=== PATIENT | female | born 1990 | race Caucasian/White ===

== ENCOUNTER → 2019-10-07 13:12 | Outpatient (BNVA) | payer MEDICAID, SELFPAY | PROVIDERS: PCP Nurse Practitioner Family; Visit Provider Nurse Practitioner Women's Health | DX: O09.91 Supervision of high risk pregnancy, unspecified, first trimester (principal); O99.211 Obesity complicating pregnancy, first trimester; O10.911 Unspecified pre-existing hypertension complicating pregnancy, first trimester; Z3A.08 8 weeks gestation of pregnancy | CPT/HCPCS: 84315; 87077; 87086; 87186 ==

== ENCOUNTER → 2019-10-17 12:35 | Outpatient (BNVA) | payer MEDICAID, SELFPAY | PROVIDERS: PCP Nurse Practitioner Family; Visit Provider Obstetrics & Gynecology | DX: O09.91 Supervision of high risk pregnancy, unspecified, first trimester (principal) | CPT/HCPCS: 80307; 84315; 85027; 86592; 86762; 86803; 86850; 86900; 87086; 87340; 87389 ==

== ENCOUNTER → 2019-10-28 09:00 | Outpatient (BNVA) | payer SELFPAY | PROVIDERS: PCP Nurse Practitioner Family; Referring Provider Obstetrics & Gynecology; Visit Provider Obstetrics & Gynecology | DX: R30.0 Dysuria (principal) | CPT/HCPCS: 81003; 87077; 87086; 87186 ==

== ENCOUNTER → 2019-11-04 12:10 | Outpatient (BNVA) | payer MEDICAID, SELFPAY | PROVIDERS: PCP Nurse Practitioner Family; Visit Provider Obstetrics & Gynecology | DX: O09.891 Supervision of other high risk pregnancies, first trimester (principal) | CPT/HCPCS: 82950; 84315; 87491; 87591 ==

== ENCOUNTER → 2019-11-18 08:30 | Outpatient (BNVA) | payer MEDICAID, SELFPAY | PROVIDERS: PCP Nurse Practitioner Family; Visit Provider Obstetrics & Gynecology | DX: R73.09 Other abnormal glucose (principal) | CPT/HCPCS: 82951; 82952 ==

== ENCOUNTER → 2019-11-25 11:00 | Outpatient (BNVA) | payer SELFPAY | PROVIDERS: PCP Nurse Practitioner Family; Visit Provider Obstetrics & Gynecology | DX: O99.89 Other specified diseases and conditions complicating pregnancy, childbirth and the puerperium (principal); R82.71 Bacteriuria; R00.0 Tachycardia, unspecified | CPT/HCPCS: 84315; 84439; 84443; 87077; 87086; 87186 ==

== ENCOUNTER → 2019-11-29 11:17 | Outpatient (BNVA) | payer SELFPAY | PROVIDERS: PCP Nurse Practitioner Family; Visit Provider Obstetrics & Gynecology | DX: Z34.90 Encounter for supervision of normal pregnancy, unspecified, unspecified trimester (principal); N89.8 Other specified noninflammatory disorders of vagina | CPT/HCPCS: 83986; 84315 ==

== ENCOUNTER → 2019-12-15 08:45 | Outpatient (BNVA) | payer SELFPAY | PROVIDERS: PCP Nurse Practitioner Family; Visit Provider Obstetrics & Gynecology | DX: O99.89 Other specified diseases and conditions complicating pregnancy, childbirth and the puerperium (principal); R82.71 Bacteriuria | CPT/HCPCS: 80053 ==

== ENCOUNTER → 2019-12-26 09:30 | Outpatient (BNVA) | payer SELFPAY | PROVIDERS: PCP Nurse Practitioner Family; Referring Provider Obstetrics & Gynecology; Visit Provider Obstetrics & Gynecology | DX: Z36.89 Encounter for other specified antenatal screening (principal); Z3A.20 20 weeks gestation of pregnancy | CPT/HCPCS: 76805 ==

== ENCOUNTER → 2019-12-29 09:02 | Outpatient (BNVA) | payer SELFPAY | PROVIDERS: PCP Nurse Practitioner Family; Visit Provider Obstetrics & Gynecology Female Pelvic Medicine and Reconstructive Surgery | DX: Z34.90 Encounter for supervision of normal pregnancy, unspecified, unspecified trimester (principal); O09.92 Supervision of high risk pregnancy, unspecified, second trimester; O10.919 Unspecified pre-existing hypertension complicating pregnancy, unspecified trimester; O99.89 Other specified diseases and conditions complicating pregnancy, childbirth and the puerperium; O99.210 Obesity complicating pregnancy, unspecified trimester; R82.71 Bacteriuria; R00.0 Tachycardia, unspecified | CPT/HCPCS: 81000 ==

== ENCOUNTER → 2020-01-23 10:51 | Outpatient (BNVA) | payer MEDICAID, SELFPAY | PROVIDERS: PCP Nurse Practitioner Family; Visit Provider Obstetrics & Gynecology | DX: O09.92 Supervision of high risk pregnancy, unspecified, second trimester (principal); O99.212 Obesity complicating pregnancy, second trimester | CPT/HCPCS: 76816; 81000 ==

== ENCOUNTER → 2020-02-15 16:01 | Outpatient (BNVA) | payer MEDICAID, SELFPAY | PROVIDERS: PCP Nurse Practitioner Family; Visit Provider Obstetrics & Gynecology | DX: N39.0 Urinary tract infection, site not specified (principal) | CPT/HCPCS: 80053; 81000; 87077; 87086; 87186 ==

== ENCOUNTER → 2020-02-21 08:23 | Outpatient (BNVA) | payer MEDICAID, SELFPAY | PROVIDERS: PCP Nurse Practitioner Family; Visit Provider Obstetrics & Gynecology | DX: O09.892 Supervision of other high risk pregnancies, second trimester (principal) | CPT/HCPCS: 81000; 82951; 82952 ==

== ENCOUNTER 2020-02-23 09:19 | Outpatient (CLI) | payer MEDICAID, SELFPAY ==
--- NOTE | 2020-02-23 09:46 | US_ITS ---
WS: [id number] [place] [id number] REASON FOR EXAM: chronic htn in FINDINGS: heart rate 133 beats for minute. Head circumference 26.61 cm 29 weeks gestation due date May 10, 2020. [place] femoral length 5.44 cm 28 weeks 5 days gestation due date 05/12/2020 weight estimated 1258 g (2 lbs. 12 oz.) suggest a 10/11/2019 due date. Femoral length 5.41 cm 20 weeks 4 days gestation due date 05/13/2020 Abdominal circumference 24.73 cm 29 weeks gestation expected date of confinement May 10, 2020 Normal amniotic fluid indices. Placenta is posterior. The facial features of the fetus were normal. The cervical length is 4.8 cm All 4 chambers in the heart were poorly outlined on this study. The cardiac insertion is also poorly seen on this study. / [place] [id number] Impression: 4 views of the heart and the cardiac insertions were poorly evaluated on this s tudy. The fetus appears to be at 28 weeks 4 days gestation with a due date of May 13, 2020 weight 2 lbs. 13 oz.
== END 2020-02-23 09:20 | disposition home or self-care (01) ==
LOC: RAD 09:21
PROVIDERS: Visit Provider Obstetrics & Gynecology
DX: O10.012 Pre-existing essential hypertension complicating pregnancy, second trimester (principal); R00.0 Tachycardia, unspecified
CPT/HCPCS: 76816

== ENCOUNTER → 2020-03-08 13:19 | Outpatient (BNVA) | payer MEDICAID, SELFPAY | PROVIDERS: Visit Provider Obstetrics & Gynecology | DX: O09.893 Supervision of other high risk pregnancies, third trimester (principal); O10.013 Pre-existing essential hypertension complicating pregnancy, third trimester; O99.213 Obesity complicating pregnancy, third trimester; R82.71 Bacteriuria; Z3A.30 30 weeks gestation of pregnancy | CPT/HCPCS: 81000 ==

== ENCOUNTER 2020-03-13 20:37 | Outpatient (CLI) | payer MEDICAID, SELFPAY ==
[2020-03-13 20:45] VITALS: BMI 37.2
[2020-03-13 20:51] VITALS: BP 145/95; PULSE 110; RESP 16; TEMP 37.1
[2020-03-13 21:02] VITALS: BP 147/84; PULSE 107
[2020-03-13 21:22] VITALS: BP 148/67; PULSE 93
[2020-03-13 21:22] LABS: Add Urine Microscopic? YES; Bilirubin Urine Neg (NEGATIVE); Blood Urine Neg (Negative); Glucose Urine UA Norm (Normal); Ketones Urine Negative (Negative); Leukocyte Esterase Urine Negative (Negative); Nitrate Urine Negative (Negative); Protein Urine Neg (Negative); Urine Appearance Hazy (CLEAR); Urine Color Yellow (Yellow); Urobilinogen Urine Norm (Negative); pH Urine 7 (5-7)
[2020-03-13 21:28] LABS: Add Urine Culture? No; Bacteria Urine 1+; Renal Epithelial Cells Urine N /hpf; Squamous Epithelial Cell Urine 0-4 (0-5)
[2020-03-13 21:42] VITALS: BP 161/94; PULSE 91
[2020-03-13 21:45] VITALS: TEMP 36.9
[2020-03-13 21:56] VITALS: BP 161/94; PULSE 91; RESP 16; TEMP 37.1
== END 2020-03-13 22:00 | disposition home or self-care (01) ==
LOC: OPOB 20:40 → OBGYN 21:56
PROVIDERS: Visit Provider Obstetrics & Gynecology
DX: O26.899 Other specified pregnancy related conditions, unspecified trimester (principal); Z3A.00 Weeks of gestation of pregnancy not specified; R10.9 Unspecified abdominal pain
CPT/HCPCS: 59025; 81001; 99211

== ENCOUNTER → 2020-03-20 09:05 | Outpatient (BNVA) | payer MEDICAID, SELFPAY | PROVIDERS: Visit Provider Obstetrics & Gynecology | DX: Z34.90 Encounter for supervision of normal pregnancy, unspecified, unspecified trimester (principal) | CPT/HCPCS: 81000 ==

== ENCOUNTER → 2020-03-28 00:01 | Outpatient (BNVA) | payer MEDICAID, SELFPAY | PROVIDERS: PCP Nurse Practitioner Family; Visit Provider Obstetrics & Gynecology | DX: O10.911 Unspecified pre-existing hypertension complicating pregnancy, first trimester (principal) | CPT/HCPCS: 80053; 81000; 84156 ==

== ENCOUNTER 2020-04-03 17:00 | Outpatient (CLI) | payer MEDICAID, SELFPAY ==
[2020-04-03 17:43] VITALS: BMI 37.0
[2020-04-03 17:47] VITALS: BP 131/69; PULSE 88
--- NOTE | 2020-04-03 18:29 | PC.NURSE ---
Nicanor Welch RN was primary nurse for this patient. she stated that medications were to be continued per physician request.
== END 2020-04-03 17:55 | disposition home or self-care (01) ==
LOC: OPOB 17:02 → OBGYN 17:06
PROVIDERS: PCP Nurse Practitioner Family; Visit Provider Obstetrics & Gynecology
DX: O26.899 Other specified pregnancy related conditions, unspecified trimester (principal); Z3A.00 Weeks of gestation of pregnancy not specified; N89.8 Other specified noninflammatory disorders of vagina
CPT/HCPCS: 59025; 83986; 99211

== ENCOUNTER → 2020-04-05 08:07 | Outpatient (BNVA) | payer MEDICAID, SELFPAY | PROVIDERS: PCP Nurse Practitioner Family; Visit Provider Obstetrics & Gynecology | DX: O10.013 Pre-existing essential hypertension complicating pregnancy, third trimester (principal); O99.213 Obesity complicating pregnancy, third trimester; Z3A.34 34 weeks gestation of pregnancy | CPT/HCPCS: 81000 ==

== ENCOUNTER → 2020-04-12 08:31 | Outpatient (BNVA) | payer MEDICAID, SELFPAY | PROVIDERS: PCP Nurse Practitioner Family; Visit Provider Obstetrics & Gynecology | DX: O10.013 Pre-existing essential hypertension complicating pregnancy, third trimester (principal); O09.893 Supervision of other high risk pregnancies, third trimester; R00.0 Tachycardia, unspecified | CPT/HCPCS: 81000; 87081 ==

== ENCOUNTER → 2020-04-17 13:13 | Outpatient (BNVA) | payer MEDICAID, SELFPAY | PROVIDERS: PCP Nurse Practitioner Family; Visit Provider Obstetrics & Gynecology | DX: O10.013 Pre-existing essential hypertension complicating pregnancy, third trimester (principal); Z3A.36 36 weeks gestation of pregnancy | CPT/HCPCS: 82570; 84156 ==

== ENCOUNTER → 2020-04-19 13:59 | Outpatient (BNVA) | payer MEDICAID, SELFPAY | PROVIDERS: PCP Nurse Practitioner Family; Visit Provider Obstetrics & Gynecology | DX: O10.013 Pre-existing essential hypertension complicating pregnancy, third trimester (principal); Z3A.00 Weeks of gestation of pregnancy not specified | CPT/HCPCS: 81000 ==

== ENCOUNTER → 2020-04-26 10:09 | Outpatient (BNVA) | payer MEDICAID, SELFPAY | PROVIDERS: PCP Nurse Practitioner Family; Visit Provider Obstetrics & Gynecology | DX: O10.013 Pre-existing essential hypertension complicating pregnancy, third trimester (principal) | CPT/HCPCS: 81000 ==

== ENCOUNTER 2020-04-27 18:01 | Inpatient (IN) | payer MEDICAID, SELFPAY ==
[2020-04-27] VITALS (24 sets, daily range): BP systolic 0–163; BP diastolic 0–87; PULSE 69–114; RESP 16–18; TEMP 36.8–37.3; BMI 36.6
[2020-04-27 19:12] LABS: Add Urine Microscopic? NO
[2020-04-27 19:15] LABS: Basophils % 0.1 %; Eosinophils % 0.4 %; Hematocrit 32.7 % (37.0-47.0); Hemoglobin 10.6 g/dL (11.5-15.3); Lymphocytes # 1.6 10^3/uL (0.8-4.8); Mean Corpuscular HGB Conc 32.4 g/dL (30.0-36.0); Mean Corpuscular Hemoglobin 29.5 pg (28.0-34.0); Mean Corpuscular Volume 91.1 fL (81-99); Mean Platelet Volume 11.4 fL (7.4-10.4); Monocytes # 0.3 10^3/uL (0.2-0.9); Monocytes % 4.1 %; Neutrophils # 6.17 10^3/uL (1.8-7.7); Neutrophils % 75.2 %; Nucleated Red Blood Cells % 0 %; Platelet Count 189 10^3/cmm (130-400); Red Blood Count 3.59 10^6/uL (4.1-5.3); Red Cell Distribution Width 14.7 % (12.1-15.1); White Blood Count 8.2 10^3/uL (4.0-10.0)
[2020-04-27 19:18] LABS: Bilirubin Urine Neg (NEGATIVE); Blood Urine Neg (Negative); Glucose Urine UA Norm (Normal); Ketones Urine Negative (Negative); Leukocyte Esterase Urine Negative (Negative); Nitrate Urine Negative (Negative); Protein Urine Neg (Negative); Specific Gravity, Urine 1.015 (1.005-1.030); Urine Appearance Clear (CLEAR); Urine Color Yellow (Yellow); Urobilinogen Urine Neg (Negative); pH Urine 7 (5-7)
[2020-04-27 19:31] LABS: Alanine Aminotransferase 9 U/L (0-33); Albumin Level 3.5 g/dL (3.5-5.2); Alkaline Phosphatase 117 IU/L (35-105); Anion Gap 15.6 (5-19); Aspartate Amino Transferase 15 U/L (0-32); Blood Urea Nitrogen 5 mg/dL (6-20); Calcium 9.2 mg/dL (8.5-10.5); Carbon Dioxide 20 mmol/L (22-29); Chloride 104 mmol/L (98-107); Globulin 2.7 g/dL (1.3-4.6); Glucose 126 mg/dL (65-115); Osmolality Calculated 279 mOsm/kg (285-295); Potassium 3.6 mmol/L (3.5-5.1); Sodium 136 mmol/L (136-145); Total Bilirubin 0.2 mg/dL (0.15-1.2); Total Protein 6.2 g/dL (6.6-8.7); Uric Acid 5.3 mg/dL (2.4-5.7)
[2020-04-27 19:38] LABS: Urine Creatinine 52 mg/dL (28-217); Urine Protein Random 5 mg/dL
[2020-04-27] MEDS: miSOPROStol 100 mcg tablet 25 MCG VAGINAL (21:29)
[2020-04-28] VITALS (176 sets, daily range): BP systolic 0–192; BP diastolic 0–107; PULSE 62–101; RESP 16–18; TEMP 36.7–37.1; O2SAT 31–100
[2020-04-28] MEDS: miSOPROStol 100 mcg tablet 25 MCG VAGINAL (01:38)
[2020-04-28] MEDS: labetalol 5 mg/mL SDV 20mL IVP ×2 (09:26→19:12)
[2020-04-28] MEDS: dextrose 5%-lactated ringers 1,000 ML 125 ML IV (09:29)
[2020-04-28] MEDS: oxytocin 30 UNIT/500 ML BAG IV (09:30)
--- NOTE | 2020-04-28 09:54 | PM.OBGYHP ---
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 She is 38-0/7 weeks gestation today. Patient presented to labor and delivery in the evening of 04/27/2020 for Cytotec cervical ripening and induction of labor due to prepregnancy hypertension. She received 2 doses of Cytotec 25 mcg vaginally in the evening and during the night. She has been started on Pitocin this morning. She has been continued on her home dose of metoprolol. Despite this, blood pressure was high enough this morning that she received IV labetalol as well. On admission she was evaluated for possible preeclampsia with a negative evaluation with protein creatinine ratio of 0.10. She denies complaints this morning. She reports that she was able to get a few hours sleep last night. She reports feeling crampiness through the night and this morning. She denies headaches or visual changes. She denies upper abdominal pain. She denies vaginal bleeding. She denies leaking of fluid. She reports baby has been moving well. care has been mainly provided by Dr. Vernon Villela at [facility]. Her care has been complicated by pre-existing essential hypertension which has been diagnosed at the age of 18. She has been intermittently treated with metoprolol through the years. She was not on medications initially in but was started on metoprolol at 16 weeks due to elevated blood pressures. She was also started on aspirin therapy. Her history was also significant for episodes of sinus tachycardia. Resting heart rate in the beginning of was in the 120s to 130s. She had a negative evaluation for hyperthyroidism. The metoprolol has controlled her heart rate adequately. She also had several episodes of acute cystitis and asymptomatic bacteriuria during the and has been taking daily prophylactic cephalexin because of this. LABS 10/07/2019 Urine culture: >100,000 CFU E. coli. 10/17/2019 Blood type: A positive. Antibody screen: Negative. Intake CBC: WBC 7.5, Hgb 13.2, Hct 39.5, MCV 88.2, Plt 271. Rubella: Immune. Hepatitis B surface antigen: Negative. Hepatitis C antibody: Negative. RPR: Nonreactive. HIV: Negative. Cystic fibrosis screen: Declined. Panorama: Declined. Urine drug screen: Negative. Urine culture: <5000 CFU, mixed organisms. 10/28/2019 Urine culture: 90-100,000 CFU, E. coli. 11/04/2019 Gonorrhea: NEGATIVE Chlamydia: NEGATIVE Pap smear: (2018) Normal per patient. Early GCT: 146 (high) 11/18/2019 3-hour GTT: 92/182/150/43 (normal) 11/25/2019 Urine culture: 90-100,000 CFU E. coli 12/15/2019 Urine culture: 30-40,000 CFU, mixed organisms. 12/29/2019 Cystic fibrosis: Screen negative. Panorama: Low risk, Female, fraction 6.5%. 02/15/2020 Urine culture: 70-80,000 E. Coli 02/21/2020 28 week CBC: WBC 7.5, Hgb 13.2, Hct 39.5, MCV 88.2, Plt 271. 3 hour GTT: 76/152/107/49. 03/28/2020 24 hour urine for TP: 150 mg (TV 1900 mL) Urine culture: Less than 5000 CFU, mixed organisms. GBS: negative OB ULTRASOUND LMP 08/06/2019 ---> EDC 05/12/2020 Please note The 09/22/2019 and 09/28/2019 ultrasounds used incorrect LMP of 08/04/2019. 1. 09/22/2019 ---> 6-4/7 WG ---> EDC 05/13/2020. Performed at [facility]. CRL 0.70 cm. FHR 126 bpm. 2. 09/28/2019 ---> 7-5/7 WG ---> EDC 05/11/2020. Performed at [facility]. CRL 1.42 cm. FHR 157 bpm. 3. 12/26/2019 ---> 20-0/7 WG ---> EDC 05/14/2020. EFW 12 oz. (340 g) 42%. Performed at [facility]. Consistent with dates. Normal anatomic survey EXCEPT for poor visualization of heart views and umbilical cord insertion. Female. Breech. FHR 140 bpm. Posterior placenta without previa. Grade 1. Visually normal amniotic fluid volume. THERAPEUTIC ASSISTANT 3.9 cm. Cervix 3.1 cm. 4. 01/23/2020 ---> 24-5/7 WG ---> EDC 05/09/2020. EFW 1 lb 10 oz (730 g) 62%. Performed at [facility]. Consistent with dates. Heart views and cord insertion reported as normal. Completed anatomy screen. Female. Cephalic. FHR 148 bpm. Posterior, fundal placenta without previa. MADHU 18.4 cm. THERAPEUTIC ASSISTANT 5.8 cm. 5. 02/23/2020 --->28-5/7 WG --> EDC: 05/13/2020. EFW 2 lb 13 oz (1258g) 38%. Performed at [facility]. Consistent with dates. Heart view was reported as poor. Cord insertion reported as poor. FHR 133 BPM. Posterior placenta with normal amniotic fluid indices (no value provided). 6. 03/20/2020 ---> 33-0/7 WG ---> EDC 05/08/2020. EFW 4 lbs 9 oz (2064 g) 53%. Performed at [facility]. Consistent with dates. Cephalic. FHR 132 bpm. Posterior, fundal placenta without previa. Placental grade 1. MADHU 14.7 cm. THERAPEUTIC ASSISTANT 4.2 cm. 7. 04/12/2020 ---> 36-2/7 WG ---> EDC 05/08/2020. EFW 6 lbs 0 oz (2728 g) 47%. Performed at [facility]. Consistent with dates. Cephalic. Female. FHR 132 bpm. Fundal, posterior placenta without previa. Grade 2. MADHU 13.3 cm. THERAPEUTIC ASSISTANT 4.7 cm. Review of Systems Const: Denies: fever(s) or chills Eyes: Denies: change in vision ENMT: Denies: throat pain or nasal congestion Card: Denies: chest pain, palpitations, swelling of feet/ankles or lightheadedness Resp: Denies: dyspnea, productive cough, non-productive cough or wheezing GI: Denies: abdominal pain, nausea, vomiting, diarrhea or constipation : Reports: urinary frequency; Denies: difficulty voiding, dysuria, urinary urgency, genital pruritis, vaginal bleeding or vaginal discharge Neuro: Denies: headache(s), dizziness or seizure-like activity Psych: Denies: anxiety or depression Endo: Denies: cold intolerance Alfred/Lymph: Denies: easy bruising or easy bleeding Medications/Allergies Home Medications Medication Instructions Recorded Confirmed Last Taken Type folic acid 1 mg tablet 1 mg PO QDAY 10/07/19 04/26/20 04/03/20 07:00 History prenat.vits,joan,cby-lkjc-eymzm 1 tab PO QDAY 10/07/19 04/26/20 04/03/20 07:00 History pyridoxine (vitamin B6) 50 mg 25 mg PO QDAY 10/07/19 04/26/20 03/12/20 18:00 History tablet aspirin 81 mg chewable tablet 81 mg PO DAILY 03/28/20 04/26/20 04/03/20 07:00 History cephalexin [Keflex] 250 mg PO DAILY 04/03/20 04/26/20 04/03/20 07:00 History metoprolol succinate 25 mg 25 mg PO BID tab 04/27/20 04/27/20 04/27/20 19:00 History tablet,extended release 24 hr Allergies Allergy/AdvReac Type Severity Reaction Status Date / Time No Known Allergies Allergy Verified 04/26/20 10:40 PFS [employer]ER PFSH: Medical History Hypertension dx at 18 y/o--managed with metoprolol 50mg;off meds since mid 2017; not on anything since Surgical History History of tonsillectomy (~2006) Family History Grandmother Cancer Maternal great grandmother---cervical or ovarian Mother Hypertension Daughter No problems noted. Father Hypertension Social History Smoking and tobacco status: never smoked Alcohol intake: former Former alcohol use details: Socially Other details last substance use: Denies any drug use. Other Female Reproductive History: Hx Age of Menarche: 13 Duration of menses: other (4 days) Cycle Length: 28-30 da History History History 2 Term 0 Miscarriages/Ectopic 1 0 Living Children 0 Other History: 1 ---> Miscarriage Care KATLYN Calculator Estimated Delivery Date Method Current WG Current Estimate 05/12/20 LMP (Certain) 38w 0d Other Estimates 05/13/20 Ultrasound #1 37w 6d 05/11/20 Ultrasound #2 38w 1d Expected Delivery Route/Plan Vaginal. Specific Issues/Plans Chronic hypertension - on Metoprolol Obesity Asymptomatic bacteriuria/Cystitis Maternal tachycardia - on Metoprolol Vitals/I&O/Wt Last Vital Signs Temp 98.7 F 04/28/20 07:20 Pulse 93 04/28/20 09:51 Resp 18 04/28/20 07:20 BP 137/83 04/28/20 09:51 Weight last 48 hrs Weight 248 lb Physical Exam Const: COMMON NORMALS: no acute distress, average body habitus, alert and well nourished GENERAL APPEARANCE: well developed ORIENTATION/CONSCIOUSNESS: Yes oriented to person, Yes oriented to place and Yes oriented to time Neck/C-Spine: COMMON NORMALS: Thyroid normal GENERAL: Yes trachea midline THYROID: Thyroid normal Resp: COMMON NORMALS: normal respiratory effort and clear to auscultation bilaterally AUSCULTATION: clear to auscultation bilaterally Cardio: COMMON NORMALS: regular rate, regular rhythm, No gallops present (Cardio) and No rub (Cardio) RATE: regular rate RHYTHM: regular rhythm HEART SOUNDS: Murmur heart sound present (Grade 1-2 systolic murmur noted.) PERIPHERAL PULSES: posterior tibial pulses present GI: COMMON NORMALS: Soft to palpation, non-tender, No hepatosplenomegaly present and no masses (Except for nontender gravid uterus) INSPECTION: Yes gravid abdomen AUSCULTATION: Yes normoactive bowel sounds PALPATION: Yes Soft to palpation, Yes No hepatosplenomegaly present and No Hernia present : EXTERNAL FEMALE EXAM: No Hernia present Extremity: COMMON NORMALS: no calf tenderness NARRATIVE EXTREMITY EXAM: Trace lower extremity edema bilaterally. Neuro: SENSORIUM/ORIENTATION: Yes alert, Yes oriented to person, Yes oriented to place and Yes oriented to time Psych: COMMON NORMALS: normal affect MOOD & AFFECT: Yes euthymic mood Data : 04/27/20 18:55 04/27/20 18:55 Other Labs: 04/27/2020: 18:55 AST 15, ALT 9, alk phos 117, total protein 6.2, albumin 3.5 Uric acid: 5.3 Urine protein/creatinine ratio: 0.10 Other data: MONITORING: Baseline heart rate in the 130s with moderate variability and accelerations present. Occasional variable deceleration present. Infrequent contractions present at this time. A&P Assessment and plan (1) Supervision of other high risk pregnancies, third trimester: Status: Acute (2) Pre-existing essential hypertension complicating , third trimester: Status: Acute (3) Tachycardia: Status: Acute (4) Asymptomatic bacteriuria during : Status: Acute (5) Obesity affecting : Status: Acute Qualifiers: Trimester: third trimester Qualified Code(s): O99.213 - Obesity complicating , third trimester Additional A&P Information 1. SUPERVISION OF OTHER HIGH RISK IN THIRD TRIMESTER 2, Para 0-0-1-0 with an LMP of 08/06/2019 and an EDC of 05/12/2020 based on LMP and consistent with 6-week ultrasound. (Today's visit 04/28/2020) at 38-0/7 weeks gestation. Patient is being induced for pre-existing hypertension complicating . 2. PRE-EXISTING HYPERTENSION COMPLICATING Patient had pre- hypertension diagnosed at age 18, controlled with metoprolol. Reports off of medication since mid 2018 after losing weight. 11/25/2019: (16 weeks) Started aspirin 81 mg daily. 11/25/2019: Started metoprolol ER 25 mg daily due to tachycardia and hypertension. 04/19/2020: Increase metoprolol ER 25 mg to twice a day. Ultrasounds LMP 08/06/2019 ---> EDC 05/12/2020 09/22/2019 --> 6-4/7 WG --> EDC 05/13/2020. 12/26/2019 --> 20-0/7 WG --> EDC 05/14/2020. EFW 12 oz. (340 g) 42%. 01/23/2020 --> 24-5/7 WG --> EDC 05/09/2020. EFW 1 lb 10 oz (730 g) 62%. MADHU 18.4 cm. 02/23/2020 --> 28-5/7 WG --> EDC: 05/13/2020. EFW 2 lb 13 oz (1258g) 38%. 03/20/2020 --> 33-0/7 WG --> EDC 05/08/2020. EFW 4 lbs 9 oz (2064 g) 53%. MADHU 14.7 cm. 04/12/2020 --> 36-2/7 WG --> EDC 05/08/2020. EFW 6 lbs 0 oz (2728 g) 47%. MADHU 13.3 cm - testing (NST and BPP's) starting at 32 weeks. -Plan growth ultrasounds at 28, 32, and 36 weeks 24-Hour Urine Total Protein 03/28/2020: 150 mg (TV 1900 mL) Urine Protein/Creatinine Ratio 04/17/2020: 0.11 04/27/2020: 0.10 (Today's visit 04/28/2020) Patient has been on metoprolol during most of the for blood pressure management. The dose was increased from once a day to twice a day of metoprolol ER 25 mg approximately 1-1/2 weeks ago due to slowly worsening blood pressures. Because of the pre-existing hypertension controlled on medications, recommendations are to deliver between 37-0/7 weeks and 39-0/7 weeks. Since we have had to increase medications recently, I am recommending that we go ahead and proceed with induction of labor. I discussed that with the patient and she was in agreement. She presented last night for cervical ripening and has been started on Pitocin this morning. Initial evaluation for preeclampsia and help syndrome was performed on admission which was negative. She has been continued on her home dose of metoprolol ER 25 mg twice a day. She will be supplemented with IV labetalol and/or hydralazine if needed during the labor course. Questions were answered. Patient is in agreement with this plan. 3. MATERNAL TACHYCARDIA 11/25/2019: Reports having a history of tachycardia and had been noticing heart rate running in 120s to 130s at home. Was noted to be elevated in the 130s in the office even after resting. -11/25/2019: TSH: 0.65, Free T4: 1.06. -11/25/2019: Started metoprolol ER 25 mg daily (Today's visit 04/28/2020) Heart rate has been well controlled on metoprolol. 4. CYSTITIS AND ASYMPTOMATIC BACTERIURIA DURING 10/07/2018: Urine culture: >100,000 CFU E. coli. Treated with cephalexin. 10/17/2019: Urine culture: <5000 CFU, mixed organisms. 10/28/2019: Urine culture: 90-100,000 CFU E. coli. Treated with cephalexin x 14 days. 11/25/2019: Urine culture: 90-100,000 CFU E. coli (symptomatic). Treated with Bactrim x 14 days. 12/15/2019: Urine culture: 30-40,000 CFU, mixed organisms. 02/15/2020: Urine culture: 70?15702 CFU E. coli. Tx with Keflex x 10 days then 250mg DAILY 03/28/2020: Urine culture: Less than 5000 CFU, mixed organisms. (Today's visit 04/28/2020) Patient has had multiple episodes of cystitis and asymptomatic bacteriuria which is been treated on several occasions. She was started on daily suppression with cephalexin following the last asymptomatic bacteriuria. She has had no further infections or episodes of asymptomatic bacteriuria since that time. 5. OBESITY COMPLICATING 10/07/2019: Beginning weight: 246 lbs. BMI 37.4 10/17/2019: Recommended limiting weight gain to 15 pounds for the . 11/04/2019: Early GCT: 146 (high) 11/18/2019: 3-hour GTT: 92/182/150/43 (normal) 02/21/2020: 1 pound weight gain so far for the . 04/26/2020: (37 wks) Weight 256 lb. (Today's visit 04/28/2020) Patient has done very well with her weight gain for the . She has only gained 10 pounds for the entire . Attestations Medical Necessity Statement*: Patient being induced for chronic hypertension at 38 weeks gestation. 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
[2020-04-28] MEDS: lactated ringers 1,000 ML 999 ML IV ×2 (14:23→15:24)
--- NOTE | 2020-04-28 15:43 | ANES.PREANE2 ---
Pre-Anesthetic Assessment Pre-Anesthetic Assessment: Height/Weight: Height 1.75 m Weight 112.491 kg Temp Pulse Resp BP Pulse Ox 98.4 F 90 16 176/84 98 04/28/20 11:45 04/28/20 15:37 04/28/20 11:45 04/28/20 15:37 04/28/20 15:38 Preop Diagnosis: term /labor pain Was Beta Ronnie taken within 24 hours: Yes Last Intake: 08:00 Exam: Pre-Anes Outpt Exam: alert, oriented x 3, clear to auscultation bilaterally and regular rate & rhythm Airway: Submandibular: WNL Cervical ROM: WNL MP: 1 Dentition: Full History/ROS: No significant history except as noted and No significant complaints Pulmonary: Pulmonary: None reported CV/HEM: CV/HEM: HTN (HTN on med since 18 yo) : : None reported Hepatic: Hepatic: None reported GI: GI: None reported Metabolic: Metabolic: None reported Musc/skel: Musc/skel: None reported Neuropsych: Neuropsych: None reported Anesthetic Plan: ASA status: 2 Anesthesia: Anesthesia Evaluation and Regional (specify below) Other: VICKI Risk of > 500 ml blood loss (7ml/kg in children): No Meds/Allergies Current Medications: Current Medications Generic Name Dose Route Start Last Admin Trade Name Freq PRN Reason Stop Dose Admin Dextrose/Lactated Ringer's 1,000 mls @ 125 m ls/hr 04/27/20 18:25 04/28/20 14:23 Dextrose 5%-Lact ated Ringers IV 0 mls/hr .Q8H PRN Infusion per label comment s Lactated Ringer's 1,000 mls @ 999 m ls/hr 04/27/20 18:25 04/28/20 15:24 Lactated Ringers IV 999 mls/hr .Q1H1M PRN Administration Per L&D Rescitati on Protocol Oxytocin 30 unit in 500 ml s @ 1 mls/hr 04/28/20 09:15 04/28/20 12:00 Pitocin IV 20 milliunit/min .Q24H JULIANNA 20 mls/hr Titration Protocol 1 MILLIUNIT/MIN Labetalol HCl 20 - 80 mg 04/28/20 00:23 04/28/20 09:26 Trandate IVP 20 mg PRN PRN Administration HYPERTENSION Protocol Non-Formulary: 1 each 04/28/20 07:00 04/28/20 07:42 Metoprolol Succ, PO 1 each 25mg Er BID@0700,1900 JULIANNA Administration PFSH Anesthesia PFSH: Medical History Hypertension dx at 18 y/o--managed with metoprolol 50mg;off meds since mid 2017; not on anything since Surgical History History of tonsillectomy (~2006) Family History Grandmother Cancer Maternal great grandmother---cervical or ovarian Mother Hypertension Daughter No problems noted. Father Hypertension Social History Smoking and tobacco status: never smoked Alcohol intake: former Former alcohol use details: Socially Other details last substance use: Denies any drug use. Female Reproductive History: : 2 Data Anesthesia CBC & Chem 7: 04/27/20 18:55 04/27/20 18:55 Other Labs: Laboratory Results - last 48 hr 04/27/20 04/27/20 04/27/20 18:30 18:30 18:55 WBC 8.2 RBC 3.59 L Hgb 10.6 L Hct 32.7 L MCV 91.1 MCH 29.5 MCHC 32.4 RDW 14.7 Plt Count 189 MPV 11.4 H Neut % (Auto) 75.2 Lymph % (Auto) 20.0 [place] % (Auto) 4.1 Eos % (Auto) 0.4 Baso % (Auto) 0.1 Neut # (Auto) 6.17 Lymph # (Auto) 1.6 [place] # (Auto) 0.3 Eos # (Auto) 0.0 Baso # (Auto) 0.0 Nucleated RBC % (auto) 0 Nucleated RBCs # 0.0 Sodium Potassium Chloride Carbon Dioxide Anion Gap BUN Creatinine GFR Calculation Glucose Calculated Osmolality Uric Acid Calcium Total Bilirubin AST ALT Alkaline Phosphatase Total Protein Albumin Globulin Urine Color Yellow Urine Appearance Clear Urine pH 7 Ur Specific [place] 1.015 Urine Protein Neg Urine Glucose (UA) Norm Urine Ketones Negative Urine Blood Neg Urine Nitrate Negative Urine Bilirubin Neg Urine Urobilinogen Neg Ur Leukocyte Esterase Negative U Random Total Protein 5 Urine Creatinine 52 Protein/Creatinin Ratio 0.10 04/27/20 18:55 WBC RBC Hgb Hct MCV MCH MCHC RDW Plt Count MPV Neut % (Auto) Lymph % (Auto) [place] % (Auto) Eos % (Auto) Baso % (Auto) Neut # (Auto) Lymph # (Auto) [place] # (Auto) Eos # (Auto) Baso # (Auto) Nucleated RBC % (auto) Nucleated RBCs # Sodium 136 Potassium 3.6 Chloride 104 Carbon Dioxide 20 L Anion Gap 15.6 BUN 5 L Creatinine 0.6 GFR Calculation 119.0 Glucose 126 H Calculated Osmolality 279 L Uric Acid 5.3 Calcium 9.2 Total Bilirubin 0.2 AST 15 ALT 9 Alkaline Phosphatase 117 H Total Protein 6.2 L Albumin 3.5 Globulin 2.7 Urine Color Urine Appearance Urine pH Ur Specific [place] Urine Protein Urine Glucose (UA) Urine Ketones Urine Blood Urine Nitrate Urine Bilirubin Urine Urobilinogen Ur Leukocyte Esterase U Random Total Protein Urine Creatinine Protein/Creatinin Ratio Cardiac Studies: No Data to Display
--- NOTE | 2020-04-28 15:45 | ANES.PROC ---
Anesthesia Procedures Procedure/Date: 04/28/20 Epidural: Time Out Performed: Yes (VICKI) Consents Signed: Procedure Consent and No Consent Needed Consent: requested by attending/covering physician, from patient, risks and benefits reviewed and patient agrees to proceed Lumbar Level: L3-L4 Epidural position: sitting Epidural procedure: sterile prep of area, 1% lidocaine to numb the area, 18 g needle, negative for paresthesia passed, test dose given, 1.5% xylocaine 1:200k epi, 0.2% Ropivacaine bolus ml, placed PCEA, no systemic response, sterile dressing applied, L.U.D. no apparent complications and 0.2% Ropiavacaine @ mls/hr Additional Comments: EMILY at 9 cm. Ropiv 0.2% 6cc and Fent 100 mcg bolus
[2020-04-28] MEDS: acetaminophen 325 mg Tablet 650 MG PO (17:10)
[2020-04-28] MEDS: ondansetron 2 mg/ML SDV 2 mL 4 MG IVP (21:19)
[2020-04-28] MEDS: lactated ringers 1,000 ML 125 ML IV (23:09)
[2020-04-29] VITALS (42 sets, daily range): BP systolic 0–186; BP diastolic 0–114; PULSE 73–97; RESP 15–18; TEMP 36.8–37.3
[2020-04-29] MEDS: miSOPROStol 200 mcg Tablet 800 MCG PR (03:49)
[2020-04-29] MEDS: oxytocin 30 UNIT/500 ML BAG 600 UNIT IV (03:49)
--- NOTE | 2020-04-29 04:05 | P.PCNOB_ITS ---
Delivery Note: Date of delivery: April 29, 2020 Pre-delivery diagnoses: 1. Pre-existing hypertension complicating in third trimester 2. at 38-1/7 weeks gestation. 3. Obesity complicating in third trimester 4. Maternal tachycardia Post-delivery diagnoses: 1. Pre-existing hypertension complicating - delivered 2. at 38-1/7 weeks gestation. 3. Obesity complicating - delivered 4. Maternal tachycardia 5. Viable female Procedure: Spontaneous vaginal delivery Op report anesthesia: Epidural Delivering Physician: Vernon Villela MD Estimated blood loss (mL): 250 Pre-Delivery Course: Patient is a 29-year-old white female 2, para 0-0-1-0 with an LMP of 08/06/2019 and an EDC of 05/12/2020 based on LMP and consistent with a 6-week ultrasound, which placed her at 37-6/7 weeks gestation at the time of admission. She presented to labor and delivery on 04/27/2020 at 18:00 for Cytotec cervical ripening and induction of labor due to pre-existing hypertension complicating . Her blood pressures have been controlled on metoprolol during , but dose had to be increased in the week prior to admission. She was evaluated on admission for possible preeclampsia which was ruled out. She was continued on her home doses of metoprolol during labor. However, she intermittently had elevated blood pressures to the point that she was also given IV labetalol. Her cervix was initially 70% effaced and 2 to 3 cm dilated. She initially received 2 doses of Cytotec vaginally in the evening and during the night. By the morning of 04/28, she was started on Pitocin induction. Artificial rupture membranes was performed at 14:13 with clear fluid present. She was 50% effaced and 3 to 4 cm dilated. Epidural was placed afterwards. She made very slow progression through the afternoon. By 18:26 she was 5 cm dilated. By 21:35 she was 6 cm dilated. She continued to progress very slowly and was eventually found to be completely dilated by 02:30 on 04/29. heart tones were reassuring during the labor course. Delivery: Patient was very comfortable with epidural and labored down. She started pushing at 03:23 and delivered at 03:40 as a spontaneous vaginal delivery of an occiput anterior female over an intact perineum under epidural anesthesia. Following delivery of the infant's head, no nuchal cords were noted. The rest of the infant delivered atraumatically with the left shoulder anterior. The baby was spontaneously crying and was placed on the mo ther's abdomen where it was left in the care of the waiting nurses. Cord was clamped and then cut by the reported father of the baby. Cord blood was obtained. Pitocin bolus was started. Placenta delivered intact by simple expression at 03:45. She had increased bleeding following delivery of the placenta and uterus would intermittently become boggy. It would respond to manual stimulation. This was despite receiving Pitocin bolus. As a result she was given 800 mcg of Cytotec rectally. The cervix and vagina were palpated and noted to be intact. The labia were inspected and noted to be intact except for superficial bilateral periurethral lacerations which were hemostatic and required no repair. FINDINGS 1. Viable female weighing 6 lbs 15 oz (3140 g) with Apgars of 8 at 1 minute and 9 at 5 minutes. 2. Three-vessel cord with no loops of nuchal cord noted. 3. Normal-appearing placenta with an eccentric cord insertion. Post-Delivery Status: Mother and were left to recover in satisfactory condition. A&P Assessment and plan (1) Tachycardia: Status: Acute (2) Pre-existing hypertension affecting , delivered, current hospitalization: Status: Acute (3) Maternal morbid obesity, delivered, current hospitalization: Status: Acute Coding Level of Care Code Acute Manager [employer] for Chg Fwd Diagnoses Pre-existing hypertension affecting , delivered, current hospitalization O10.02 Maternal morbid obesity, delivered, current hospitalization O99.210; E66.01 Tachycardia R00.0
--- NOTE | 2020-04-29 06:20 | PC.NURSE ---
Chronic HTN since the age of 18 yrs. old
--- NOTE | 2020-04-29 08:12 | PC.NURSE ---
Verified by Pili Amos RN
[2020-04-29] MEDS: docusate sodium 100 mg Capsule PO ×2 (10:01→16:57)
[2020-04-29] MEDS: prenatal vitamin Capsule 1 CAP PO (10:01)
[2020-04-29] MEDS: metoprolol succinate ER (24 HR) 25 mg Tablet PO (10:02)
[2020-04-29 16:10] LABS: Hematocrit 28.7 % (37.0-47.0); Hemoglobin 9.3 g/dL (11.5-15.3); Mean Corpuscular HGB Conc 32.4 g/dL (30.0-36.0); Mean Corpuscular Hemoglobin 30.2 pg (28.0-34.0); Mean Corpuscular Volume 93.2 fL (81-99); Mean Platelet Volume 11.3 fL (7.4-10.4); Platelet Count 149 10^3/cmm (130-400); Red Blood Count 3.08 10^6/uL (4.1-5.3); Red Cell Distribution Width 15.2 % (12.1-15.1); White Blood Count 9.8 10^3/uL (4.0-10.0)
[2020-04-30 04:15] VITALS: BP 115/80; PULSE 66; RESP 17; TEMP 36.9
--- NOTE | 2020-04-30 08:47 | P.DS_ITS ---
Discharge Providers [facility] Date of Admission: 04/27/20 18:01 Date of Discharge: 04/30/20 Attending Provider at Admission: Vernno Villela MD Attending Provider at Discharge: Vernon Villela MD Primary Care Provider: GERMAN Ruiz Diagnoses at Discharge Discharge Diagnosis (1) Pre-existing hypertension affecting , delivered, current hospitalization: Status: Acute (2) Maternal morbid obesity, delivered, current hospitalization: Status: Acute (3) Tachycardia: Status: Acute Reason for Visit Reason for Visit: INDUCTION OF LABOR Hospital Course Discharge Summary: Patient is a 29-year-old white female 2, para 0-0-1-0 with an LMP of 08/06/2019 and an EDC of 05/12/2020 based on LMP and consistent with a 6-week ultrasound, which placed her at 37-6/7 weeks gestation at the time of admission. She presented to L&D on 04/27/2020 at 18:00 for Cytotec cervical ripening and induction of labor due to pre-existing hypertension complicating pregnancies. Her blood pressure had been controlled with metoprolol during the . However, over the last week, metoprolol dose had to be increased due to increasing blood pressures. On presentation to L&D she was evaluated for preeclampsia which ruled out. However, during the labor course, blood pressures became elevated enough to receive IV labetalol even though she was still having her oral metoprolol doses given. She received 2 doses of Cytotec 25 mcg vaginally. By the morning of 04/28 she was started on Pitocin for induction. She had artificial rupture membranes at 14:13 with clear fluid. She was 3 to 4 cm dilated. She received an epidural. She slowly progressed through the rest of the day and was found to be completely dilated at 02:30 on 04/29. She initially labor down and then started pushing at 03:23. She delivered at 03:40 as a spontaneous vaginal delivery of an occiput anterior female infant over an intact perineum under epidural anesthesia. The baby weighed 6 lbs 15 oz (3140 g) with Apgars of 8 at 1 minute and 9 at 5 minutes. Mother had superficial bilateral periurethral lacerations which required no repair. She did have a boggy uterus following delivery and was given 800 mcg of Cytotec rectally in addition to the IV Pitocin. Mother and did well following delivery. Metoprolol had been decreased from twice a day to once a day after delivery. Day 1 Patient reports doing well. She is tolerating a regular diet without nausea or vomiting. She is ambulating without lightheadedness or dizziness. She denied shortness of breath or chest pains. She states her pain is been well controlled. She denies problems with urination. She states her bleeding has slowed. She is breast-feeding. She would like to go home today. Physical Exam: See below Plan Following delivery, blood pressures have been in the normal range with once a day metoprolol dosing. She will be continued on this dose after going home. Discharge to home. Discharge instructions were discussed with patient. Patient was to follow-up in the office in approximately 6 weeks for exam. She was instructed to continue her vitamins. She was to stop the cephalexin that she was taking for asymptomatic bacteriuria prophylaxis Information Peripartum Data: Delivery Method: Vaginal Physical Exam Const: COMMON NORMALS: no acute distress, average body habitus, alert and well nourished GENERAL APPEARANCE: well developed ORIENTATION/CONSCIOUSNESS: Yes oriented to person, Yes oriented to place and Yes oriented to time GI: COMMON NORMALS: Soft to palpation, non-tender, No hepatosplenomegaly present and no masses (Except for nontender uterus, approximately 2 fingerbreadths below umbilicus) AUSCULTATION: Yes normoactive bowel sounds PALPATION: Yes Soft to palpation, Yes No hepatosplenomegaly present and No H ernia present : EXTERNAL FEMALE EXAM: No Hernia present Extremity: COMMON NORMALS: no calf tenderness NARRATIVE EXTREMITY EXAM: Trace lower extremity edema bilaterally Neuro: SENSORIUM/ORIENTATION: Yes alert, Yes oriented to person, Yes oriented to place and Yes oriented to time Psych: COMMON NORMALS: normal affect MOOD & AFFECT: Yes euthymic mood Urinary Catheter Management^: Gao: Cath Placed During This Visit: yes Reason for Continuing Indwelling Catheter: Required Immobilization for Trauma or Surgery or Anesthesia Urinary Catheter Date of Insertion: 04/28/20 Urinary Catheter Time of Insertion: 16:15 Discharge Data Data Completed and Pending: Labs from last 24 hours 04/29/20 16:00 WBC 9.8 RBC 3.08 L Hgb 9.3 L Hct 28.7 L MCV 93.2 MCH 30.2 MCHC 32.4 RDW 15.2 H Plt Count 149 MPV 11.3 H Vitals: Last Vital Signs Temp 98.5 F 04/30/20 04:15 Pulse 66 04/30/20 04:15 Resp 17 04/30/20 04:15 BP 115/80 04/30/20 04:15 Pulse Ox 98 04/28/20 15:38 Discharge Plan Discharge Patient Disposition: Home Condition: Stable Prescriptions: New ibuprofen 800 mg Tablet 800 mg PO TID PRN (Reason: pain) Qty: 30 RF: 0 Continued prenat.vits,joan,[id number] Tablet 1 tab PO QDAY RF: 0 aspirin [Nikita Chewable Aspirin] 81 mg tablet,chewable 81 mg PO DAILY RF: 0 Changed metoprolol succinate 25 mg tablet extended release 24 hr 25 mg PO DAILY Qty: 0 RF: 0 Discontinued folic acid 1 mg tablet 1 mg PO QDAY RF: 0 pyridoxine (vitamin B6) 50 mg tablet 25 mg PO QDAY RF: 0 cephalexin [Keflex] 250 mg capsule 250 mg PO DAILY RF: 0 Discharge Orders: Discharge Order (Routine); Ordered 04/30/20 Ordered By: Vernon Villela Referrals: Vernon Villela MD [Physician] - 6 Weeks ( exam) Discharge Diet: Regular Discharge Activity: Resume usual activity Patient Instructions: OB Vaginal Deliveries - [facility] Discharge Attestations [facility] Time Spent in Discharge Care*: less than 30 min Coding Level of Care Code Acute Online Marketing Manager for Chg Fwd Diagnoses Pre-existing hypertension affecting , delivered, current hospitalization O10.02 Maternal morbid obesity, delivered, current hospitalization O99.210; E66.01 Tachycardia R00.0
[2020-04-30 10:00] VITALS: BP 140/86; PULSE 66; RESP 18; TEMP 36.8
[2020-04-30] MEDS: prenatal vitamin Capsule 1 CAP PO (10:06)
[2020-04-30] MEDS: docusate sodium 100 mg Capsule PO (10:07)
[2020-04-30] MEDS: metoprolol succinate ER (24 HR) 25 mg Tablet PO (10:08)
[2020-04-30 13:00] VITALS: BP 137/86; PULSE 79; RESP 18; TEMP 36.9
[2020-04-30 13:22] VITALS: BP 137/86; PULSE 79; RESP 18; TEMP 36.9
== END 2020-04-30 13:15 | disposition home or self-care (01) | DRG 807 ==
LOC: OPOB 18:11 → OBGYN 18:11 → OPOB 04-28 11:52 → OBGYN 04-28 11:53
PROVIDERS: Admitting Provider Obstetrics & Gynecology; PCP Nurse Practitioner Family; Visit Provider Obstetrics & Gynecology
DX: O10.92 Unspecified pre-existing hypertension complicating childbirth (principal); Z37.0 Single live birth; Z3A.37 37 weeks gestation of pregnancy; O99.214 Obesity complicating childbirth; O75.89 Other specified complications of labor and delivery; R00.0 Tachycardia, unspecified; O71.82 Other specified trauma to perineum and vulva; Z79.82 Long term (current) use of aspirin
CPT/HCPCS: 12345; 36415; 51702; 59025; 59409; 80053; 81003; 82570; 84156; 84550; 85025; 85027; 96374; 96375; J2405; J2795; J3010; J3490

== ENCOUNTER 2020-06-20 02:45 | Emergency (ER) | payer MEDICAID, SELFPAY ==
[2020-06-20] VITALS (8 sets, daily range): BP systolic 112–156; BP diastolic 81–94; PULSE 64–82; RESP 16–17; TEMP 36.8; O2SAT 96–100; BMI 34.0
--- NOTE | 2020-06-20 02:59 | W.ED.ABDPA2 ---
Documented by User: Lindsay Carlos Alberto Shafer 06/20/20 18:51 HPI - Abdominal Pain General: Chief Complaint: Abdominal Pain Stated Complaint: abd pain Time Seen by Provider: 06/20/20 02:59 Source: patient Mode of arrival: ambulatory Limitations: no limitations History of Present Illness: HPI narrative: Montserrat is a 29-year-old female who comes in complaining of abdominal pain. She states her pain began last night and has been constant. She states it waxes and wanes in intensity. Is described as a dull ache. Pain is primarily in the right lower quadrant but she states it started in the periumbilical area. Patient denies any vaginal discharge or bleeding. She denies any burning or pain when she urinates or urinary frequency or urgency. She denies any upper abdominal pain. Patient does have nauseousness but denies any vomiting or diarrhea. Patient denies have anything similar to this in the past. Patient states she did try to take a bath at home for her pain but that did not help. Associated Symptoms: Reports nausea; Denies chills, coffee ground emesis, constipation, GI cramping, diarrhea, dysuria, fever(s), heartburn, hematochezia, hematuria, hematemesis, melena, syncope and vomiting Review of Systems Const: Denies: fever(s), chills, body aches, fatigue, malaise or diaphoresis Eyes: Denies: change in vision, blurry vision, photophobia, eye discomfort, eye discharge, eye redness or yellow eyes ENMT: Denies: throat pain, odynophagia, hoarseness, swelling of lips/tongue, ear or mastoid pain, ear discharge, change in hearing or nasal discharge Card: Denies: chest pain, palpitations, irregular heart rhythm, edema, lightheadedness, syncope, pre-syncope, dyspnea on exertion or orthopnea Resp: Denies: dyspnea, productive cough, non-productive cough, wheezing, hemoptysis or chest congestion GI: Reports: abdominal pain and nausea; Denies: vomiting, hematemesis, coffee ground emesis, heartburn, diarrhea, constipation, GI cramping, hematochezia or melena : Denies: flank pain, dysuria, urinary frequency, urinary urgency or hematuria Musc: Denies: neck pain, back pain, extremity pain, extremity swelling, joint pain, joint swelling, joint redness, joint warmth or joint stiffness Skin/Breast: Denies: rash, pruritus, erythema, skin pain or skin tenderness Neuro: Denies: headache(s), numbness in extremities, weakness in extremities, sensory changes, lack of coordination, difficulty walking, dizziness, vertigo, confusion, Slurred speech present or seizure-like activity Alfred/Lymph: Denies: easy bruising, easy bleeding, petechiae, purpura or enlarged lymph nodes All/Imm: Denies: urticaria, throat swelling, tongue swelling, facial swelling or acute wheezing PFSH ED PFSH: Medical History Hypertension dx at 18 y/o--managed with metoprolol 50mg;off meds since mid 2017; not on anything since Obesity Tachycardia Surgical History History of tonsillectomy (~2006) Family History Grandmother Cancer Maternal great grandmother---cervical or ovarian Mother Hypertension Daughter No problems noted. Father Hypertension Social History Smoking and tobacco status: never smoked Alcohol intake: former Former alcohol use details: Socially Other details last substance use: Denies any drug use. Physical Exam Const: COMMON NORMALS: no acute distress, patient oriented x3, no limitations and alert GENERAL APPEARANCE: cooperative HENMT: COMMON NORMALS: normocephalic, atraumatic, external ears normal, EAC's normal and Normal external nose present HEAD & SCALP: normal to inspection, normocephalic and atraumatic FACE & SINUS: normal facial exam and face symmetric NOSE: Normal external nose present and Normal nares present EXTERNAL EAR: Yes external ears normal EXTERNAL AUDITORY CANAL: EAC's normal MOUTH: Normal oral and palatal mucosa present, lip normal and tongue normal Eye: COMMON NORMALS: Equal, round and reactive pupils present and conjunctivae normal GENERAL EYE: appearance normal, both eyes and all related structures ALIGNMENT: Yes alignment normal PERIORBITAL: periorbital findings normal EYELID: eyelids normal CONJUNCTIVA: Yes conjunctivae normal SCLERA: sclerae normal PUPIL: Yes Equal, round and reactive pupils present Neck/C-Spine: COMMON NORMALS: full ROM, no lymphadenopathy, supple, no meningeal signs and no JVD GENERAL: Yes normal visual inspection and Yes trachea midline Chest: COMMONS NORMALS: normal inspection of the chest and normal palpation of entire chest wall Resp: COMMON NORMALS: normal respiratory effort, No retractions, No use of accessory muscles and clear to auscultation bilaterally EFFORT & INSPECTION: Yes able to speak in complete sentences and Yes symmetric chest movement AUSCULTATION: clear to auscultation bilaterally, no crackles, no rales, no rhonchi and no wheezes Cardio: COMMON NORMALS: no JVD, regular rate, regular rhythm, S1 normal heart sound present and S2 normal heart sound present RATE: regular rate RHYTHM: regular rhythm HEART SOUNDS: S1 normal heart sound present, S2 normal heart sound present, no click, no gallops, no murmurs and no rubs GI: COMMON NORMALS: Soft to palpation and No hepatosplenomegaly present PALPATION: Yes Soft to palpation, Yes Tenderness to palpation present (GI) Details: RLQ (Mild without rebound or guarding), No Guarding due to palpation present (GI), No Rigid due to palpation, Yes No hepatosplenomegaly present, No Hernia present, No Palpable mass present and No Pulsatile mass present : COMMON NORMALS: Yes no CVA tenderness BLADDER/KIDNEY EXAM: Yes no CVA tenderness EXTERNAL FEMALE EXAM: No Hernia present Back/Pelvis: COMMON NORMALS: no CVA tenderness, thoracic and lumbar spine normal to inspection, no thoracic nor lumbar tenderness and thoraco-lumbar ROM normal Extremity: COMMON NORMALS: normal to inspection, full ROM, capillary refill normal, no joint enlargement, no clubbing, cyanosis or edema and no calf tenderness Neuro: COMMON NORMALS: patient oriented x3, CN's II-XII intact bilaterally, moves all extremities, no focal motor deficits and no sensory deficits noted SENSORIUM/ORIENTATION: Yes alert MENINGEAL SIGNS: Yes no meningeal signs SPEECH: speech normal Psych: COMMON NORMALS: mental status grossly normal, Normal thought process present, cooperative, normal affect, speech normal and activity/motor behavior normal SPEECH: Yes normal speech THOUGHT PROCESS: Normal thought process present Skin: COMMON NORMALS: no rashes or lesions noted, turgor normal, no jaundice, no petechiae and no mottling GENERAL SKIN EXAM: no rashes or lesions noted and turgor normal Course Vital Signs: Vital signs: Vital Signs Temperature 98.3 F 06/20/20 02:53 Pulse Rate 64 06/20/20 06:39 Respiratory Rate 16 06/20/20 03:42 Blood Pressure 117/83 06/20/20 06:39 Pulse Oximetry 98 06/20/20 06:39 MDM - Abdominal Pain MDM Narrative: Medical decision making narrative: 599 -case will be turned over to Dr. Brown at change of shift. Ultrasound of the gallbladder pending. Lab Data: Attestation: I reviewed the patient's lab results. Labs: Lab Results 06/20/20 06/20/20 06/20/20 Range/Units 03:00 03:00 03:00 WBC 6.3 (4.0-10.0) 10^3/ uL RBC 4.26 (4.1-5.3) 10^6/u L Hgb 12.6 (11.5-15.3) g/dL Hct 38.8 (37.0-47.0) % MCV 91.1 (81-99) fL MCH 29.6 (28.0-34.0) pg MCHC 32.5 (30.0-36.0) g/dL RDW 13.4 (12.1-15.1) % Plt Count 229 (130-400) 10^3/c mm MPV 11.0 H (7.4-10.4) fL Neut % (Auto) 58.8 % Lymph % (Auto) 30.8 % Long % (Auto) 6.0 % Eos % (Auto) 3.2 % Baso % (Auto) 0.9 % Neut # (Auto) 3.72 (1.8-7.7) 10^3/u L Lymph # (Auto) 2.0 (0.8-4.8) 10^3/u L Long # (Auto) 0.4 (0.2-0.9) 10^3/u L Eos # (Auto) 0.2 (0.0-0.8) 10^3/u L Baso # (Auto) 0.1 (0.0-0.1) 10^3/u L Nucleated RBC % (a uto) 0 % Nucleated RBCs # 0.0 /100WBC Sodium 137 (136-145) mmol/L Potassium 4.2 (3.5-5.1) mmol/L Chloride 100 (98-107) mmol/L Carbon Dioxide 23 (22-29) mmol/L Anion Gap 18.2 (5-19) BUN 20 (6-20) mg/dL Creatinine 1.0 H (0.5-0.9) mg/dL GFR Calculation 66.0 L (90-130) mL/min Glucose 104 (65-115) mg/dL Calculated Osmolal ity 287 (285-295) mOsm/k g Calcium 10.1 (8.5-10.5) mg/dL Total Bilirubin 0.2 (0.15-1.2) mg/dL AST 33 H (0-32) U/L ALT 34 H (0-33) U/L Alkaline Phosphata se 72 (35-105) IU/L Total Protein 7.4 (6.6-8.7) g/dL Albumin 4.4 (3.5-5.2) g/dL Globulin 3.0 (1.3-4.6) g/dL Lipase 75 H (13-60) U/L HCG, Qual Negative (Negative) Urine Color (Yellow) Urine Appearance (CLEAR) Urine pH (5-7) Ur Specific Gravit y (1.005-1.030) Urine Protein (Negative) Urine Glucose (UA) (Normal) Urine Ketones (Negative) Urine Blood (Negative) Urine Nitrate (Negative) Urine Bilirubin (Negative) Urine Urobilinogen (Negative) mg/dL Ur Leukocyte Melanie ase (Negative) Urine RBC (0-2) /hpf Urine WBC (0-5) /hpf Ur Squamous Epith Cells (0-5) /hpf Amorphous Sediment Urine Bacteria (NONE) /hpf 06/20/20 Range/Units 03:37 WBC (4.0-10.0) 10^3/ uL RBC (4.1-5.3) 10^6/u L Hgb (11.5-15.3) g/dL Hct (37.0-47.0) % MCV (81-99) fL MCH (28.0-34.0) pg MCHC (30.0-36.0) g/dL RDW (12.1-15.1) % Plt Count (130-400) 10^3/c mm MPV (7.4-10.4) fL Neut % (Auto) % Lymph % (Auto) % Long % (Auto) % Eos % (Auto) % Baso % (Auto) % Neut # (Auto) (1.8-7.7) 10^3/u L Lymph # (Auto) (0.8-4.8) 10^3/u L Long # (Auto) (0.2-0.9) 10^3/u L Eos # (Auto) (0.0-0.8) 10^3/u L Baso # (Auto) (0.0-0.1) 10^3/u L Nucleated RBC % (a uto) % Nucleated RBCs # /100WBC Sodium (136-145) mmol/L Potassium (3.5-5.1) mmol/L Chloride (98-107) mmol/L Carbon Dioxide (22-29) mmol/L Anion Gap (5-19) BUN (6-20) mg/dL Creatinine (0.5-0.9) mg/dL GFR Calculation (90-130) mL/min Glucose (65-115) mg/dL Calculated Osmolal ity (285-295) mOsm/k g Calcium (8.5-10.5) mg/dL Total Bilirubin (0.15-1.2) mg/dL AST (0-32) U/L ALT (0-33) U/L Alkaline Phosphata se (35-105) IU/L Total Protein (6.6-8.7) g/dL Albumin (3.5-5.2) g/dL Globulin (1.3-4.6) g/dL Lipase (13-60) U/L HCG, Qual (Negative) Urine Color Yellow (Yellow) Urine Appearance Clear (CLEAR) Urine pH 6 (5-7) Ur Specific Gravit y 1.020 (1.005-1.030) Urine Protein Neg (Negative) Urine Glucose (UA) Norm (Normal) Urine Ketones Negative (Negative) Urine Blood Neg (Negative) Urine Nitrate Negative (Negative) Urine Bilirubin Neg (Negative) Urine Urobilinogen Norm (Negative) mg/dL Ur Leukocyte Melanie ase Negative (Negative) Urine RBC None (0-2) /hpf Urine WBC None (0-5) /hpf Ur Squamous Epith Cells None (0-5) /hpf Amorphous Sediment Not Reportable Urine Bacteria None (NONE) /hpf Imaging Data ^: CT Abd/Pel: Radiologist's impression: [address] [place] [address] CT Scan Report Signed Patient: Montserrat Garza Unit #: [id number] : 1990 Age/Sex: 29 / F ADM Date: 06/20/20 Loc: ER Room/Bed: Attending Dr: Ordering Provider/Ordering MD: Lindsay Shafer DO Date of Service: 06/20/20 Procedure(s): CT abdomen pelvis w con* [id number] Accession Number(s): [id number] Report Number: [id number] PROCEDURE INFORMATION: Exam: CT Abdomen And Pelvis With Contrast Exam date and time: 06/20/2020 3:23 AM Age: 29 years old Clinical indication: Abdominal pain; Generalized; Patient HX: PT 7 weeks TECHNIQUE: Imaging protocol: Computed tomography of the abdomen and pelvis with intravenous contrast. Radiation optimization: All CT scans at this facility use at least one of these dose optimization techniques: automated exposure control; mA and/or kV adjustment per patient size (includes targeted exams where dose is matched to clinical indication); or iterative reconstruction. Contrast material: OMNI 300; Contrast volume: 95 ml; Contrast route: INTRAVENOUS (IV); COMPARISON: No relevant prior studies available. RADIATION DOSE METRICS: Total DLP (mGy-cm): 1746.56 FINDINGS: Lungs: The lung bases are clear. Liver: Unremarkable. Gallbladder and bile ducts: Possible mild gallbladder wall thickening/edema. No visible gallstones by CT. Ultrasound would be more sensitive for detecting gallstones, if clinically needed. No definite pericholecystic inflammatory changes. No biliary tree dilation. Pancreas: Unremarkable. Spleen: Unremarkable. Adrenals: Unremarkable. Kidneys and ureters: Suspect 1 or 2 very small left intrarenal calculi. No hydronephrosis of either kidney. No visible ureteral calculus. No perinephric fluid. The kidneys enhance homogeneously. Stomach and bowel: There are no CT findings to strongly suggest diverticulitis. Appendix: The appendix is visualized and appears normal. Intraperitoneal space: No free air, ascites, or bowel distention. Vasculature: No evidence for abdominal aortic aneurysm. Lymph nodes: No retroperitoneal adenopathy. Urinary bladder: Possibly some mild diffuse urinary bladder wall thickening. Evaluation is somewhat limited, as the bladder is not well distended. While nonspecific, this could indicate evidence for cystitis. Please correlate clinically. Reproductive: Essentially unremarkable for age. Bones/joints: No significant acute finding. Soft tissues: Very small umbilical hernia, containing only fat. CT/CT abdomen pelvis w con* [id number] IMPRESSION: 1. Possible mild gallbladder wall thickening/edema, no visible gallstones by CT. 2. Normal appendix. 3. No free air or bowel distention. 4. Possible mild urinary bladder wall thickening, see above. 5. Suspect 1 or 2 very small left intrarenal calculi. 6. No hydronephrosis of either kidney. No visible ureteral calculus. 7. Other findings discussed above. Radiation Dose CTDIVOL = (mGy): DLP = 1746.56 (mGy-cm) Dictated By: Dariusz Cueva MD Signed By: Dariusz Cueva MD Signed Date/Time: 06/20/20500 DD/ 8 Discharge Plan Discharge Patient Disposition: Home Clinical Impression: GERD without esophagitis Condition: Stable Prescriptions: New Protonix 40 mg tablet,delayed release (DR/EC) 40 mg PO DAILY 42 Days Qty: 42 RF: 0 No Action prenat.vits,joan,[id number] Tablet 1 tab PO QDAY RF: 0 aspirin [Nikita Chewable Aspirin] 81 mg tablet,chewable 81 mg PO DAILY RF: 0 norethindrone (contraceptive) [Kandace] 0.35 mg tablet 0.35 mg PO DAILY Qty: 84 RF: 3 ibuprofen 800 mg Tablet 800 mg PO TID PRN (Reason: pain) Qty: 30 RF: 0 metoprolol succinate 25 mg tablet extended release 24 hr 25 mg PO DAILY Qty: 0 RF: 0 Discharge Orders: Discharge Order (Routine); Ordered 06/20/20 Ordered By: Stu Brown Activity Restrictions/Additional Instructions: Case management will make an appointment with the surgeon to follow-up on your abdominal pain and consider possible further work-up including EGD or more advanced imaging imaging concerning the gallbladder if it is felt necessary.. Discharge Date/Time: 06/20/20 06:49 Sign Out Sign Out Data: Patient Sign Out occurred on 06/20/20 at 06:27. Patient's care was discussed, and care was transferred from to Stu Brown DO. 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 Father Hypertension Social History Smoking and tobacco status: never smoked Alcohol intake: former Former alcohol use details: Socially Other details last substance use: Denies any drug use. Course Vital Signs: Vital signs: Vital Signs Temperature 98.3 F 06/20/20 02:53 Pulse Rate 64 06/20/20 06:39 Respiratory Rate 16 06/20/20 03:42 Blood Pressure 117/83 06/20/20 06:39 Pulse Oximetry 98 06/20/20 06:39 MDM - Abdominal Pain MDM Narrative: Medical decision making narrative: Care assumed a change of care. Ultrasound does not show any acute cholecystitis. There is some mild thickening of the wall of the gallbladder but that is thought to be associated with it a palate hepatocellular disease and her pattern of steatosis. No acute cholecystitis. Patient is feeling better will go ahead and discharge home have her follow-up with her doctor return if has further problems. Lab Data: Labs: Lab Results 06/20/20 06/20/20 06/20/20 Range/Units 03:00 03:00 03:00 WBC 6.3 (4.0-10.0) 10^3/ uL RBC 4.26 (4.1-5.3) 10^6/u L Hgb 12.6 (11.5-15.3) g/dL Hct 38.8 (37.0-47.0) % MCV 91.1 (81-99) fL MCH 29.6 (28.0-34.0) pg MCHC 32.5 (30.0-36.0) g/dL RDW 13.4 (12.1-15.1) % Plt Count 229 (130-400) 10^3/c mm MPV 11.0 H (7.4-10.4) fL Neut % (Auto) 58.8 % Lymph % (Auto) 30.8 % Long % (Auto) 6.0 % Eos % (Auto) 3.2 % Baso % (Auto) 0.9 % Neut # (Auto) 3.72 (1.8-7.7) 10^3/u L Lymph # (Auto) 2.0 (0.8-4.8) 10^3/u L Long # (Auto) 0.4 (0.2-0.9) 10^3/u L Eos # (Auto) 0.2 (0.0-0.8) 10^3/u L Baso # (Auto) 0.1 (0.0-0.1) 10^3/u L Nucleated RBC % (a uto) 0 % Nucleated RBCs # 0.0 /100WBC Sodium 137 (136-145) mmol/L Potassium 4.2 (3.5-5.1) mmol/L Chloride 100 (98-107) mmol/L Carbon Dioxide 23 (22-29) mmol/L Anion Gap 18.2 (5-19) BUN 20 (6-20) mg/dL Creatinine 1.0 H (0.5-0.9) mg/dL GFR Calculation 66.0 L (90-130) mL/min Glucose 104 (65-115) mg/dL Calculated Osmolal ity 287 (285-295) mOsm/k g Calcium 10.1 (8.5-10.5) mg/dL Total Bilirubin 0.2 (0.15-1.2) mg/dL AST 33 H (0-32) U/L ALT 34 H (0-33) U/L Alkaline Phosphata se 72 (35-105) IU/L Total Protein 7.4 (6.6-8.7) g/dL Albumin 4.4 (3.5-5.2) g/dL Globulin 3.0 (1.3-4.6) g/dL Lipase 75 H (13-60) U/L HCG, Qual Negative (Negative) Urine Color (Yellow) Urine Appearance (CLEAR) Urine pH (5-7) Ur Specific Gravit y (1.005-1.030) Urine Protein (Negative) Urine Glucose (UA) (Normal) Urine Ketones (Negative) Urine Blood (Negative) Urine Nitrate (Negative) Urine Bilirubin (Negative) Urine Urobilinogen (Negative) mg/dL Ur Leukocyte Melanie ase (Negative) Urine RBC (0-2) /hpf Urine WBC (0-5) /hpf Ur Squamous Epith Cells (0-5) /hpf Amorphous Sediment Urine Bacteria (NONE) /hpf 06/20/ Range/Units 03:37 WBC (4.0-10.0) 10^3/ uL RBC (4.1-5.3) 10^6/u L Hgb (11.5-15.3) g/dL Hct (37.0-47.0) % MCV (81-99) fL MCH (28.0-34.0) pg MCHC (30.0-36.0) g/dL RDW (12.1-15.1) % Plt Count (130-400) 10^3/c mm MPV (7.4-10.4) fL Neut % (Auto) % Lymph % (Auto) % Long % (Auto) % Eos % (Auto) % Baso % (Auto) % Neut # (Auto) (1.8-7.7) 10^3/u L Lymph # (Auto) (0.8-4.8) 10^3/u L Long # (Auto) (0.2-0.9) 10^3/u L Eos # (Auto) (0.0-0.8) 10^3/u L Baso # (Auto) (0.0-0.1) 10^3/u L Nucleated RBC % (a uto) % Nucleated RBCs # /100WBC Sodium (136-145) mmol/L Potassium (3.5-5.1) mmol/L Chloride (98-107) mmol/L Carbon Dioxide (22-29) mmol/L Anion Gap (5-19) BUN (6-20) mg/dL Creatinine (0.5-0.9) mg/dL GFR Calculation (90-130) mL/min Glucose (65-115) mg/dL Calculated Osmolal ity (285-295) mOsm/k g Calcium (8.5-10.5) mg/dL Total Bilirubin (0.15-1.2) mg/dL AST (0-32) U/L ALT (0-33) U/L Alkaline Phosphata se (35-105) IU/L Total Protein (6.6-8.7) g/dL Albumin (3.5-5.2) g/dL Globulin (1.3-4.6) g/dL Lipase (13-60) U/L HCG, Qual (Negative) Urine Color Yellow (Yellow) Urine Appearance Clear (CLEAR) Urine pH 6 (5-7) Ur Specific Gravit y 1.020 (1.005-1.030) Urine Protein Neg (Negative) Urine Glucose (UA) Norm (Normal) Urine Ketones Negative (Negative) Urine Blood Neg (Negative) Urine Nitrate Negative (Negative) Urine Bilirubin Neg (Negative) Urine Urobilinogen Norm (Negative) mg/dL Ur Leukocyte Melanie ase Negative (Negative) Urine RBC None (0-2) /hpf Urine WBC None (0-5) /hpf Ur Squamous Epith Cells None (0-5) /hpf Amorphous Sediment Not Reportable Urine Bacteria None (NONE) /hpf Discharge Plan Discharge Patient Disposition: Home Clinical Impression: GERD without esophagitis Condition: Stable Prescriptions: New Protonix 40 mg tablet,delayed release (DR/EC) 40 mg PO DAILY 42 Days Qty: 42 RF: 0 No Action prenat.vits,joan,[id number] Tablet 1 tab PO QDAY RF: 0 aspirin [Nikita Chewable Aspirin] 81 mg tablet,chewable 81 mg PO DAILY RF: 0 norethindrone (contraceptive) [Kandace] 0.35 mg tablet 0.35 mg PO DAILY Qty: 84 RF: 3 ibuprofen 800 mg Tablet 800 mg PO TID PRN (Reason: pain) Qty: 30 RF: 0 metoprolol succinate 25 mg tablet extended release 24 hr 25 mg PO DAILY Qty: 0 RF: 0 Discharge Orders: Discharge Order (Routine); Ordered 06/20/20 Ordered By: Stu Brown Activity Restrictions/Additional Instructions: Case management will make an appointment with the surgeon to follow-up on your abdominal pain and consider possible further work-up including EGD or more advanced imaging imaging concerning the gallbladder if it is felt necessary.. Discharge Date/Time: 06/20/20 06:49 Sign Out Sign Out Data: Patient Sign Out occurred on 06/20/20 at 06:27. Patient's care was discussed, and care was transferred from to Stu Brown DO. Coding Level of Care Code ED [employer] Account Executive for [employer] Fwd Exam Comprehensive
--- NOTE | 2020-06-20 03:05 | CTR_ITS ---
PROCEDURE INFORMATION: Exam: CT Abdomen And Pelvis With Contrast Exam date and time: 06/20/2020 3:23 AM Age: 29 years old Clinical indication: Abdominal pain; Generalized; Patient HX: PT 7 weeks TECHNIQUE: Imaging protocol: Computed tomography of the abdomen and pelvis with intravenous contrast. Radiation optimization: All CT scans at this facility use at least one of these dose optimization techniques: automated exposure control; mA and/or kV adjustment per patient size (includes targeted exams where dose is matched to clinical indication); or iterative reconstruction. Contrast material: OMNI 300; Contrast volume: 95 ml; Contrast route: INTRAVENOUS (IV); COMPARISON: No relevant prior studies available. RADIATION DOSE METRICS: Total DLP (mGy-cm): 1746.56 FINDINGS: Lungs: The lung bases are clear. Liver: Unremarkable. Gallbladder and bile ducts: Possible mild gallbladder wall thickening/edema. No visible gallstones by CT. Ultrasound would be more sensitive for detecting gallstones, if clinically needed. No definite pericholecystic inflammatory changes. No biliary tree dilation. Pancreas: Unremarkable. Spleen: Unremarkable. Adrenals: Unremarkable. Kidneys and ureters: Suspect 1 or 2 very small left intrarenal calculi. No hydronephrosis of either kidney. No visible ureteral calculus. No perinephric fluid. The kidneys enhance homogeneously. Stomach and bowel: There are no CT findings to strongly suggest diverticulitis. Appendix: The appendix is visualized and appears normal. Intraperitoneal space: No free air, ascites, or bowel distention. Vasculature: No evidence for abdominal aortic aneurysm. Lymph nodes: No retroperitoneal adenopathy. Urinary bladder: Possibly some mild diffuse urinary bladder wall thickening. Evaluation is somewhat limited, as the bladder is not well distended. While nonspecific, this could indicate evidence for cystitis. Please correlate clinically. Reproductive: Essentially unremarkable for age. Bones/joints: No significant acute finding. Soft tissues: Very small umbilical hernia, containing only fat. CT/CT abdomen pelvis w con* [id number] IMPRESSION: 1. Possible mild gallbladder wall thickening/edema, no visible gallstones by CT. 2. Normal appendix. 3. No free air or bowel distention. 4. Possible mild urinary bladder wall thickening, see above. 5. Suspect 1 or 2 very small left intrarenal calculi. 6. No hydronephrosis of either kidney. No visible ureteral calculus. 7. Other findings discussed above. Radiation Dose CTDIVOL = (mGy): DLP = 1746.56 (mGy-cm)
[2020-06-20] MEDS: sodium chloride 0.9% 1,000 ML 100 ML IV (03:38)
[2020-06-20 03:39] LABS: Basophils # 0.1 10^3/uL (0.0-0.1); Basophils % 0.9 %; Eosinophils # 0.2 10^3/uL (0.0-0.8); Eosinophils % 3.2 %; Hematocrit 38.8 % (37.0-47.0); Hemoglobin 12.6 g/dL (11.5-15.3); Lymphocytes % 30.8 %; Mean Corpuscular HGB Conc 32.5 g/dL (30.0-36.0); Mean Corpuscular Hemoglobin 29.6 pg (28.0-34.0); Mean Corpuscular Volume 91.1 fL (81-99); Monocytes # 0.4 10^3/uL (0.2-0.9); Neutrophils # 3.72 10^3/uL (1.8-7.7); Neutrophils % 58.8 %; Nucleated Red Blood Cells % 0 %; Platelet Count 229 10^3/cmm (130-400); Red Blood Count 4.26 10^6/uL (4.1-5.3); Red Cell Distribution Width 13.4 % (12.1-15.1); White Blood Count 6.3 10^3/uL (4.0-10.0)
[2020-06-20 03:48] LABS: HCG, Serum Qual Negative (Negative)
[2020-06-20] MEDS: iohexol 300 mg/mL 100 mL Btl IV (03:58)
[2020-06-20 04:04] LABS: Alanine Aminotransferase 34 U/L (0-33); Albumin Level 4.4 g/dL (3.5-5.2); Alkaline Phosphatase 72 IU/L (35-105); Anion Gap 18.2 (5-19); Aspartate Amino Transferase 33 U/L (0-32); Blood Urea Nitrogen 20 mg/dL (6-20); Calcium 10.1 mg/dL (8.5-10.5); Carbon Dioxide 23 mmol/L (22-29); Chloride 100 mmol/L (98-107); Glucose 104 mg/dL (65-115); Lipase 75 U/L (13-60); Osmolality Calculated 287 mOsm/kg (285-295); Potassium 4.2 mmol/L (3.5-5.1); Sodium 137 mmol/L (136-145); Total Bilirubin 0.2 mg/dL (0.15-1.2); Total Protein 7.4 g/dL (6.6-8.7)
[2020-06-20 04:20] LABS: Bilirubin Urine Neg (Negative); Blood Urine Neg (Negative); Glucose Urine UA Norm (Normal); Ketones Urine Negative (Negative); Leukocyte Esterase Urine Negative (Negative); Nitrate Urine Negative (Negative); Protein Urine Neg (Negative); Urine Appearance Clear (CLEAR); Urine Color Yellow (Yellow); Urobilinogen Urine Norm (Negative); pH Urine 6 (5-7)
--- NOTE | 2020-06-20 05:04 | US_ITS ---
WS: [id number] RIGHT UPPER QUADRANT ULTRASOUND HISTORY: Pain COMPARISON: None available. Technically difficult RIGHT upper quadrant ultrasound. Liver: 17.3 cm in length. Liver is slightly enlarged with decreased attenuation from hepatic steatosi s. No bile duct dilatation. Gallbladder: No definite stones are identified in the gallbladder. There is mild diffuse thickening o f the gallbladder wall. No pericholecystic fluid. Gallbladder wall measures up to 4 mm. CBD: 0.3 cm Pancreas: Not visualized. Right kidney: 12.4 cm in length. Normal size and echogenicity. No hydronephrosis or mass. Aorta and IVC: Unremarkable abdominal aorta and IVC. No ascites. US/US gall bladder [id number] IMPRESSION: 1. Technically difficult evaluation RIGHT upper quadrant. 2. No cholelithiasis identified. There is mild diffuse wall thickening which i s probably related to hepatocellular disease. No evidence for acute cholecystit is. 3. Mild hepatomegaly and hepatic steatosis.
--- NOTE | 2020-06-20 10:34 | DCPLANNER ---
district operations manager had message to schedule a follow up appointment for patient with general surgery. district operations manager called [facility], spoke with Janiya. district operations manager was told that patients information would be printed and reviewed. Clinic will call patient with appointment information.
--- NOTE | 2020-06-26 12:08 | DCPLANNER ---
Patient has a follow up appointment scheduled for Friday, July 03, 2020 at 1:[address] Rodriguez. Clinic will call patient with appointment information.
--- NOTE | 2020-07-13 16:14 | DCPLANNER ---
Patient had a follow up appointment for patient with [facility] for 07.03. - patient did not attend appointment.
== END 2020-06-20 06:49 | disposition home or self-care (01) ==
PROVIDERS: Emergency Medicine; Emergency Provider Family Medicine
DX: K21.9 Gastro-esophageal reflux disease without esophagitis (principal); Z79.82 Long term (current) use of aspirin; I10 Essential (primary) hypertension
CPT/HCPCS: 12345; 74177; 76705; 80053; 81001; 83690; 84703; 85025; 96360; 96361; 99283; J7030; Q9967

== ENCOUNTER → 2020-11-23 09:24 | Outpatient (BNVA) | payer MEDICAID, SELFPAY | PROVIDERS: Visit Provider Obstetrics & Gynecology | DX: R10.9 Unspecified abdominal pain (principal) | CPT/HCPCS: 81025 ==

== ENCOUNTER → 2020-12-25 10:37 | Outpatient (BNVA) | payer MEDICAID, SELFPAY | PROVIDERS: Visit Provider Nurse Practitioner Women's Health | DX: O09.899 Supervision of other high risk pregnancies, unspecified trimester; O21.9 Vomiting of pregnancy, unspecified; R35.0 Frequency of micturition; O10.911 Unspecified pre-existing hypertension complicating pregnancy, first trimester; O99.211 Obesity complicating pregnancy, first trimester; R00.0 Tachycardia, unspecified | CPT/HCPCS: 81000; 87077; 87086; 87184 ==

== ENCOUNTER → 2021-01-08 11:44 | Outpatient (BNVA) | payer MEDICAID, SELFPAY | PROVIDERS: Visit Provider Obstetrics & Gynecology | DX: O09.899 Supervision of other high risk pregnancies, unspecified trimester (principal); O21.9 Vomiting of pregnancy, unspecified | CPT/HCPCS: 80053; 80307; 81000; 82570; 82950; 84156; 84443; 84550; 85027; 86592; 86762; 86803; 86850; 86900; 87086; 87340 ==

== ENCOUNTER → 2021-01-28 15:26 | Outpatient (BNVA) | payer MEDICAID, SELFPAY | PROVIDERS: Visit Provider Obstetrics & Gynecology | DX: O09.899 Supervision of other high risk pregnancies, unspecified trimester (principal); Z12.4 Encounter for screening for malignant neoplasm of cervix; O99.891 Other specified diseases and conditions complicating pregnancy; O10.911 Unspecified pre-existing hypertension complicating pregnancy, first trimester; O21.9 Vomiting of pregnancy, unspecified; R82.71 Bacteriuria | CPT/HCPCS: 81000; 87077; 87086; 87184; 87491; 87591; 88175 ==

== ENCOUNTER 2021-02-08 08:03 | Outpatient (CLI) | payer MEDICAID, SELFPAY ==
--- NOTE | 2021-02-08 08:00 | USCV_ITS ---
Gerda Garzaney Age: 30 Gender: F : 1990 Exam Date: 02/08/2021 08:21 Ordering Phys: Leobardo Gomes MD Technologist: Estrellita Phan Exam Location: [facility] [place] Indication: unspecified pre existing HTN complicated BP: 124 / 72 HR: 88 Rhythm: Sinus Technical Quality: Adequate MEASUREMENTS (Male / Female) Normal Values 2D ECHO LV Diastolic Diameter PLAX 4.9 cm 4.2 - 5.9 / 3.9 - 5.3 cm LV Systolic Diameter PLAX 2.6 cm IVS Diastolic Thickness 0.9 cm 0.6 - 1.0 / 0.6 - 0.9 cm IVS Systolic Thickness 2.0 cm LVPW Diastolic Thickness 0.7 cm 0.6 - 1.0 / 0.6 - 0.9 cm LVPW Systolic Thickness 1.5 cm LVOT Diameter 2.0 cm LV Ejection Fraction 2D Teich 77.7 % LV Ejection Fraction MOD 2C 69.0 % LV Ejection Fraction 2C AL 72.2 % LA Diameter 3.7 cm LA Width 2.9 cm LA Height 5.0 cm RA Width 3.3 cm RA Height 4.3 cm Aorta at Sinotubular Diameter 2.4 cm M-MODE LV Diastolic Diameter MM 4.5 cm 4.2 - 5.9 / 3.9 - 5.3 cm LV Systolic Diameter MM 3.1 cm LV Ejection Fraction MM Teich 61.1 % IVS Diastolic Thickness MM 0.5 cm 0.6 - 1.0 / 0.6 - 0.9 cm IVS Systolic Thickness MM 1.4 cm LVPW Diastolic Thickness MM 1.3 cm 0.6 - 1.0 / 0.6 - 0.9 cm LVPW Systolic Thickness MM 1.9 cm Aortic Annulus Diameter 2.5 cm LA Ao Ratio MM 1.4 MV E Point Septal Separation 0.4 cm DOPPLER AV Peak Velocity 136.0 cm/s LVOT Peak Velocity 140.0 cm/s AV Area Cont Eq vti 2.5 cm squared AV Area Cont Eq pk 3.4 cm squared MV Peak Velocity 155.0 cm/s MV Area PHT 3.8 cm squared Mitral E to A Ratio 1.6 MV E' Velocity 62.5 cm/s Mitral E to MV E' Ratio 8.1 Mitral E to LV E' Lateral Ratio 6.9 Mitral E to LV E' Septal Ratio 9.8 TR Peak Velocity 96.3 cm/s TR Peak Gradient 3.7 mmHg Right Atrial Pressure 3.0 mmHg Pulmonary Artery Systolic Pressu 6.7 mmHg PV Peak Velocity 104.0 cm/s RV Acceleration Time 0.2 s RV Ejection Time 0.3 s RV AcT/ET 0.5 FINDINGS Left Ventricle Normal left ventricular size. LV systolic function is normal with EF of 60-65%. No regional wall motion abnormalities. Normal diastolic filling pattern. Right Ventricle The right ventricle is normal in size and function. Right Atrium The right atrium is normal in size. Left Atrium The left atrium is normal in size. Mitral Valve Structurally normal mitral valve without significant stenosis or prolapse. There is no mitral regurgitation. Aortic Valve Structurally normal aortic valve without significant sclerosis or stenosis. There is no aortic regurgitation. Tricuspid Valve Structurally normal tricuspid valve without significant stenosis. Trace tricuspid regurgitations. RVSP is normal. No pulmonary hypertension Pulmonic Valve Structurally normal pulmonic valve without significant stenosis. There is no pulmonic regurgitation. Pericardium Normal pericardium without effusion. Aorta Normal ascending aorta dimension. CONCLUSIONS LV systolic function is normal with EF of 60-65% Diastolic function is normal No significant valvular heart disease No comparison studies are available Dixon Mesa MD (Electronically Signed) Final Date: 17 Feb 2021 14:16 S
--- NOTE | 2021-02-08 09:22 | ECG_ITS ---
[facility] Test Date: 2021-02-08 Pat Name: Montserrat Garza Department: Room: Gender: Female Director Of Special Events: : 1990 Requested By: Leobardo Gomes Order Number: [id number] Reading MD: BELLA CALHOUN Measurements Intervals [place] Rate: 95 P: 19 [place]: 152 QRS: 17 QRSD: 89 T: 14 QT: 364 QTc: 458 Interpretive Statements SINUS RHYTHM No previous ECG available for comparison Electronically Signed On 02-08-2021 21:19:50 CDT by BELLA CALHOUN [id number]
== END 2021-02-08 08:04 | disposition home or self-care (01) ==
PROVIDERS: Visit Provider Obstetrics & Gynecology
DX: O10.911 Unspecified pre-existing hypertension complicating pregnancy, first trimester (principal)
CPT/HCPCS: 93005; 93306

== ENCOUNTER → 2021-02-11 16:14 | Outpatient (BNVA) | payer MEDICAID, SELFPAY | PROVIDERS: Visit Provider Obstetrics & Gynecology | DX: Z34.80 Encounter for supervision of other normal pregnancy, unspecified trimester (principal) | CPT/HCPCS: 81000; 87086 ==

== ENCOUNTER → 2021-03-06 00:01 | Outpatient (BNVA) | payer MEDICAID, SELFPAY | PROVIDERS: Visit Provider Obstetrics & Gynecology | DX: O10.911 Unspecified pre-existing hypertension complicating pregnancy, first trimester (principal) | CPT/HCPCS: 84156 ==

== ENCOUNTER → 2021-03-07 08:18 | Outpatient (BNVA) | payer MEDICAID, SELFPAY | PROVIDERS: Visit Provider Nurse Practitioner Women's Health | DX: O09.899 Supervision of other high risk pregnancies, unspecified trimester (principal); O10.911 Unspecified pre-existing hypertension complicating pregnancy, first trimester; O21.9 Vomiting of pregnancy, unspecified; R82.71 Bacteriuria; O99.891 Other specified diseases and conditions complicating pregnancy | CPT/HCPCS: 81000; 82105; 87077; 87086; 87184 ==

== ENCOUNTER → 2021-03-19 12:56 | Outpatient (BNVA) | payer BC, SELFPAY | PROVIDERS: Visit Provider Obstetrics & Gynecology | DX: Z34.90 Encounter for supervision of normal pregnancy, unspecified, unspecified trimester (principal); R82.71 Bacteriuria | CPT/HCPCS: 81000 ==

== ENCOUNTER 2023-01-10 00:32 | Emergency (ER) | payer BC, MEDICAID, SELFPAY ==
[2023-01-10 00:48] VITALS: BP 164/95; PULSE 95; RESP 16; TEMP 36.5; O2SAT 99
--- NOTE | 2023-01-10 01:45 | USR_ITS ---
PROCEDURE INFORMATION: Exam: US Abdomen, Limited; Right Upper Quadrant Exam date and time: 01/10/2023 2:02 AM Age: 32 years old Clinical indication: Abdominal pain; Epigastric; Additional info: Ruq pain vomiting TECHNIQUE: Imaging protocol: Real time ultrasound of the abdomen with image documentation. Limited exam focused on the right upper quadrant. COMPARISON: US gall bladder [id number] 06/20/2020 6:01 AM FINDINGS: Liver: Normal size, contour and echotexture of the liver. No masses. The liver measures up to 15.3 cm. Gallbladder: Cholelithiasis. No mural thickening or pericholecystic fluid. Negative sonographic Tolbert's. Biliary ducts: The common bile duct measures up to 3 mm. No biliary dilation. Pancreas: Limited visualization of the pancreas. Visualized portions appear unremarkable. Right kidney: The right kidney measures up to 10.5 cm in length. No hydronephrosis. No masses. Portal venous: Patent main portal vein with antegrade flow. US/US gall bladder [id number] IMPRESSION: Cholelithiasis without sonographic evidence of cholecystitis.
--- NOTE | 2023-01-10 01:49 | W.ED.ABDPA2 ---
HPI - Abdominal Pain General: Chief Complaint: Abdominal Pain Stated Complaint: right upper abd pain Time Seen by Provider: 01/10/23 01:37 Source: patient History of Present Illness: 32-year-old female who for the last 2 weeks has been having right upper quadrant pain on and off. She is taking Mounjaro for weight loss, and is somewhat concerned about pancreatitis. She also has a history of gallstone previously. She did not have surgery, as she got and has had 2 children since that time. Pain was much worse today, and she has vomited multiple times. No fever. No diarrhea. Pertinent past history: other Onset (ago): day(s) Pain Consistency: intermittent Location: RUQ Severity: severe Quality: stabbing Radiation: none Migration to: no migration Exacerbating factors: eating (Possibly) Relieving factors: nothing Associated Symptoms: Reports nausea and vomiting; Denies coffee ground emesis, diarrhea, dysuria, fever(s), hematemesis and melena Review of Systems Const: Denies: fever(s) ENMT: Denies: throat pain Card: Denies: chest pain Resp: Denies: dyspnea, productive cough or non-productive cough GI: Reports: nausea and vomiting; Denies: hematemesis, coffee ground emesis, diarrhea or melena : Denies: flank pain, difficulty voiding or dysuria Skin/Breast: Denies: rash PFSH ED PFSH: Medical History Hypertension Diagnosed at the age of 18 and she was taking metoprolol 50 mg once a day. This was managed by her primary care provider. She has not needed medication since 2018 until her in 2019 when she was restarted on metoprolol midway through the . No pertinent past medical history Denies diabetes, asthma, seizures, DVT/PE PMD: None Surgical History History of tonsillectomy (~2007) Family History Mother Hypertension Father Hypertension Family/Other Uterine cancer Maternal Great Grandmother--dx age 65 Denies family history of Colon cancer Ovarian cancer Diabetes Heart disease Hypercholesteremia Breast cancer Thyroid disease Stroke Social History Substance/Drug Use: never Other details last substance use: Denies any drug use. Physical Exam Const: COMMON NORMALS: no acute distress GENERAL APPEARANCE: cooperative; not ill appearing and not frail appearing HENMT: COMMON NORMALS: normocephalic, atraumatic and Normal external nose present HEAD & SCALP: normocephalic and atraumatic FACE & SINUS: normal facial exam and face symmetric NOSE: Normal external nose present Eye: COMMON NORMALS: Equal, round and reactive pupils present and EOMs intact bilaterally PUPIL: Yes Equal, round and reactive pupils present Neck/C-Spine: GENERAL: Yes trachea midline Chest: CHEST: Yes Symmetrical chest wall rise Resp: COMMON NORMALS: normal respiratory effort, No retractions, No use of accessory muscles and clear to auscultation bilaterally AUSCULTATION: clear to auscultation bilaterally Cardio: COMMON NORMALS: regular rate and regular rhythm RATE: regular rate RHYTHM: regular rhythm GI: COMMON NORMALS: Normal to inspection, nondistended, normoactive bowel sounds present and Soft to palpation PALPATION: Yes Soft to palpation, Yes Tenderness to palpation present (GI) Details: RUQ and Yes Guarding due to palpation present (GI) Extremity: COMMON NORMALS: no pedal edema Neuro: NANCY COMA SCALE: document GCS findings Nancy coma scale eye opening: Spontaneous [place] coma scale verbal response: Orientated Nancy coma scale motor response: Obey commands [place] coma scale total score: 15 SENSORY EXAM: Yes extremities (intact) Psych: COMMON NORMALS: speech normal SPEECH: Yes normal speech Skin: COMMON NORMALS: no rashes or lesions noted GENERAL SKIN EXAM: no rashes or lesions noted Course Vital Signs: Vital signs: Vital Signs Temperature 97.7 F 01/10/23 00:48 Pulse Rate 110 H 01/10/23 04:20 Respiratory Rate 16 01/10/23 04:20 Blood Pressure 136/93 01/10/23 04:20 Pulse Oximetry 99 01/10/23 04:20 Oxygen Delivery Me thod Room Air 01/10/23 00:48 MDM - Abdominal Pain Medical Decision Making 32-year-old female with right upper quadrant pain. Pain is essentially resolved. No vomiting here. She is afebrile. Her white blood cell count is normal at 7.6. BMP is normal. However, her bilirubin is mildly elevated at 2.8. Her liver enzymes are in the thousands. Hepatitis acute panel is negative. Acetaminophen level is nondetectable. Ultrasound shows cholelithiasis with a normal common bile duct and no evidence of cholecystitis. Her lipase is normal. Abdominal CT shows no acute findings actually. It does show cholelithiasis. With improvement in her symptoms, afebrile status, she will be allowed home to recheck liver enzymes in 2 to 3 days. Elevated LFTs and bilirubin could be from her Mounjaro, which she was instructed to stop for now. It also could be due to a recently passed gallstone causing her right upper quadrant pain. Without cholecystitis, and no common bile duct dilatation, importance is to ensure that liver enzymes returned to normal. She has an appointment with her physician on Thursday she knows to return for any return of pain or worsening symptoms. Lab Data 01/10/23 02:19 01/10/23 02:19 Labs/Radiology: Radiology Impressions Gallbladder Ultrasound 01/10/23 01:45 IMPRESSION: Cholelithiasis without sonographic evidence of cholecystitis. Abdomen/Pelvis CT 01/10/23 03:31 IMPRESSION: No acute findings. Laboratory Results WBC 7.6 10^3/uL (4.0-10.0) 01/10/23 02:19 RBC 4.52 10^6/uL (4.1-5.3) 01/10/23 02:19 Hgb 13.3 g/dL (11.5-15.3) 01/10/23 02:19 Hct 40.1 % (37.0-47.0) 01/10/23 02:19 MCV 88.7 fl (81-99) 01/10/23 02:19 MCH 29.4 pg (28.0-34.0) 01/10/23 02:19 MCHC 33.2 g/dL (30.0-36.0) 01/10/23 02:19 RDW 13.6 % (12.1-15.1) 01/10/23 02:19 Plt Count 220 10^3/cmm (130-400) 01/10/23 02:19 MPV 10.9 fL (7.4-10.4) H 01/10/23 02:19 Neut % (Auto) 78.0 % 01/10/23 02:19 Lymph % (Auto) 13.1 % 01/10/23 02:19 Angelina % (Auto) 6.7 % 01/10/23 02:19 Eos % (Auto) 1.2 % 01/10/23 02:19 Baso % (Auto) 0.9 % 01/10/23 02:19 Neut # (Auto) 5.90 10^3/uL (1.8-7.7) 01/10/23 02:19 Lymph # (Auto) 1.0 10^3/uL (0.8-4.8) 01/10/23 02:19 Angelina # (Auto) 0.5 10^3/uL (0.2-0.9) 01/10/23 02:19 Eos # (Auto) 0.1 10^3/uL (0.0-0.8) 01/10/23 02:19 Baso # (Auto) 0.1 10^3/uL (0.0-0.1) 01/10/23 02:19 Nucleated RBC % (auto) 0 % 01/10/23 02:19 Nucleated RBCs # 0.0 /100WBC 01/10/23 02:19 Sodium 138 mmol/L (136-145) 01/10/23 02:19 Potassium 3.8 mmol/L (3.5-5.1) 01/10/23 02:19 Chloride 101 mmol/L (98-107) 01/10/23 02:19 Carbon Dioxide 23 mmol/L (22-29) 01/10/23 02:19 Anion Gap 17.8 (5-19) 01/10/23 02:19 BUN 9 mg/dL (6-20) 01/10/23 02:19 Creatinine 0.6 mg/dL (0.5-0.9) 01/10/23 02:19 GFR Calculation 116.6 mL/min (90-130) 01/10/23 02:19 Glucose 88 mg/dL (65-115) 01/10/23 02:19 Calculated Osmolality 284 mOsm/kg (285-295) L 01/10/23 02:19 Calcium 9.6 mg/dL (8.5-10.5) 01/10/23 02:19 Total Bilirubin 2.8 mg/dL (0.15-1.2) H 01/10/23 02:19 AST 1030 U/L (0-32) H 01/10/23 02:19 ALT 1159 U/L (0-33) H 01/10/23 02:19 Alkaline Phosphatase 236 U/L (35-105) H 01/10/23 02:19 C-Reactive Protein 3.0 mg/L (0.0-4.9) 01/10/23 02:19 Total Protein 7.8 g/dL (6.6-8.7) 01/10/23 02:19 Albumin 4.5 g/dL (3.5-5.2) 01/10/23 02:19 Globulin 3.3 g/dL (1.3-4.6) 01/10/23 02:19 Lipase 52 U/L (13-60) 01/10/23 02:19 HCG, Qual Negative (Negative) 01/10/23 02:19 Urine Color Dark yellow (Yellow) 01/10/23 02:34 Urine Appearance Cloudy (CLEAR) A 01/10/23 02:34 Urine pH 7 (5-7) 01/10/23 02:34 Ur Specific [place] 1.020 (1.005-1.030) 01/10/23 02:34 Urine Protein 1+ (Negative) H 01/10/23 02:34 Urine Glucose (UA) Norm (Normal) 01/10/23 02:34 Urine Ketones 2+ (Negative) H 01/10/23 02:34 Urine Blood 2+ (Negative) H 01/10/23 02:34 Urine Nitrate Positive (Negative) H 01/10/23 02:34 Urine Bilirubin 2+ (Negative) H 01/10/23 02:34 Urine Urobilinogen 4 mg/dL (Negative) H 01/10/23 02:34 Ur Leukocyte Esterase 2+ (Negative) H 01/10/23 02:34 Urine RBC 0-4 /hpf (0-2) H 01/10/23 02:34 Urine WBC 15-25 /hpf (0-5) H 01/10/23 02:34 Ur Squamous Epith Cells 15-25 /hpf (0-5) H 01/10/23 02:34 Amorphous Sediment Not Reportable 01/10/23 02:34 Urine Bacteria 3+ /hpf (NONE) H 01/10/23 02:34 Acetaminophen < 5.0 ug/mL (10-30) L 01/10/23 02:19 Hepatitis A IgM Ab Non-reactive (Nonreactive) 01/10/23 02:19 Hep Bs Antigen Non-reactive (Nonreactive) 01/10/23 02:19 Hep B Core IgM Ab Non-reactive (Nonreactive) 01/10/23 02:19 Hepatitis C Antibody Non-reactive (Nonreactive) 01/10/23 02:19 Discharge Plan Discharge Patient Disposition: Home Clinical Impression: Cholelithiasis, Biliary colic, Acquired hyperbilirubinemia Condition: Stable Prescriptions: New hydrocodone-acetaminophen 5-325 mg tablet 1 tab PO Q8H PRN (Reason: pain) Qty: 7 0RF ondansetron 4 mg film 4 mg PO DAILY PRN (Reason: nausea and vomiting) Qty: 10 0RF No Action Unisom (doxylamine) 25 mg tablet 25 mg PO Q6H PRN pyridoxine (vitamin B6) 25 mg tablet 25 mg PO DAILY Gummy 400 mcg-35 mg -25 mg-5 mg tablet,chewable PO folic acid 400 mcg tablet 0.4 mg PO DAILY aspirin 81 mg tablet,delayed release (DR/EC) 81 mg PO DAILY Qty: 90 1RF Rx Instructions: OTC medication, no RX given cephalexin 500 mg capsule 500 mg PO Q12H 10 Days Qty: 20 0RF Discharge Orders: Discharge ED (Routine); Ordered 01/10/23 Ordered By: Burt Wild Referrals: Anthony Jacinto DO [Physician] - 4-7 days Jeanne Saba FNP [Primary Care Provider] - 1-3 days Patient Instructions: Biliary Colic (ED), Abdominal Pain (ED), Opioid Safety, Pain Management Activity Restrictions/Additional Instructions: Stop the Mounjaro until cleared by your doctor. See your doctor early next week as scheduled, and have your liver enzymes redrawn. Case management has been asked to make you a surgery appointment to follow-up with your gallbladder. Use medications prescribed for symptoms. Return to the emergency department for worsening pain despite treatment, vomiting liquids or medications, fever greater than 100, yellowing of the eyes or skin, any other concerning symptoms. Coding Level of Care Code ED Television Operator for Sydney Cervantes
[2023-01-10] MEDS: ondansetron 2 mg/ML SDV 2 mL 4 MG IVP (02:12)
[2023-01-10] MEDS: ketorolac 30 mg/mL INJ 15 MG IVP (02:14)
[2023-01-10] MEDS: morphine 4 mg/mL SDV 1 mL IVP (02:15)
[2023-01-10 02:23] LABS: Basophils # 0.1 10^3/uL (0.0-0.1); Basophils % 0.9 %; Eosinophils # 0.1 10^3/uL (0.0-0.8); Eosinophils % 1.2 %; Hematocrit 40.1 % (37.0-47.0); Hemoglobin 13.3 g/dL (11.5-15.3); Lymphocytes % 13.1 %; Mean Corpuscular HGB Conc 33.2 g/dL (30.0-36.0); Mean Corpuscular Hemoglobin 29.4 pg (28.0-34.0); Mean Corpuscular Volume 88.7 fl (81-99); Mean Platelet Volume 10.9 fL (7.4-10.4); Monocytes # 0.5 10^3/uL (0.2-0.9); Monocytes % 6.7 %; Nucleated Red Blood Cells % 0 %; Platelet Count 220 10^3/cmm (130-400); Red Blood Count 4.52 10^6/uL (4.1-5.3); Red Cell Distribution Width 13.6 % (12.1-15.1); White Blood Count 7.6 10^3/uL (4.0-10.0)
[2023-01-10 02:39] VITALS: BP 142/91; PULSE 97; RESP 16; O2SAT 99
[2023-01-10 02:46] LABS: Albumin Level 4.5 g/dL (3.5-5.2); Alkaline Phosphatase 236 U/L (35-105); Anion Gap 17.8 (5-19); Blood Urea Nitrogen 9 mg/dL (6-20); Calcium 9.6 mg/dL (8.5-10.5); Carbon Dioxide 23 mmol/L (22-29); Chloride 101 mmol/L (98-107); Globulin 3.3 g/dL (1.3-4.6); Glomerular Filtration Rate 116.6 mL/min (90-130); Glucose 88 mg/dL (65-115); Lipase 52 U/L (13-60); Osmolality Calculated 284 mOsm/kg (285-295); Potassium 3.8 mmol/L (3.5-5.1); Sodium 138 mmol/L (136-145); Total Bilirubin 2.8 mg/dL (0.15-1.2); Total Protein 7.8 g/dL (6.6-8.7)
[2023-01-10 02:58] LABS: Alanine Aminotransferase 1159 U/L (0-33)
[2023-01-10 02:59] LABS: Add Urine Microscopic? YES; Bilirubin Urine 2+ (Negative); Blood Urine 2+ (Negative); Glucose Urine UA Norm (Normal); Ketones Urine 2+ (Negative); Leukocyte Esterase Urine 2+ (Negative); Nitrate Urine Positive (Negative); Protein Urine 1+ (Negative); Urine Appearance Cloudy (CLEAR); Urine Color Dark Yellow (Yellow); Urobilinogen Urine 4 mg/dL (Negative); pH Urine 7 (5-7)
[2023-01-10 03:03] LABS: RBC Urine 0-4 /hpf (0-2); WBC Urine 15-25 /hpf (0-5)
[2023-01-10 03:04] LABS: Squamous Epithelial Cell Urine 15-25 /hpf (0-5)
[2023-01-10 03:07] LABS: Bacteria Urine 3+ /hpf
[2023-01-10 03:09] LABS: Aspartate Amino Transferase 1030 U/L (0-32)
[2023-01-10 03:12] LABS: HCG, Serum Qual Negative (Negative)
[2023-01-10 03:31] VITALS: BP 149/82; RESP 14
--- NOTE | 2023-01-10 03:31 | CTR_ITS ---
PROCEDURE INFORMATION: Exam: CT Abdomen And Pelvis With Contrast Exam date and time: 01/10/2023 3:43 AM Age: 32 years old Clinical indication: Abdominal pain; Localized; Right upper quadrant (ruq); Additional info: Right upper quadrant pain, hyperbilirubinemia TECHNIQUE: Imaging protocol: Computed tomography of the abdomen and pelvis with contrast. Radiation optimization: All CT scans at this facility use at least one of these dose optimization techniques: automated exposure control; mA and/or kV adjustment per patient size (includes targeted exams where dose is matched to clinical indication); or iterative reconstruction. Contrast material: OMNI 350; Contrast volume: 100 ml; Contrast route: INTRAVENOUS (IV); REPORTING DATA: Count of CT and Cardiac NM exams in prior 12 months: This patient has received 0 known CTs and 0 known cardiac nuclear medicine studies in the 12 months prior to the current study. COMPARISON: CT abdomen pelvis w con* [id number] 06/20/2020 3:52 AM RADIATION DOSE METRICS: Total DLP (mGy-cm): 969 FINDINGS: Liver: Normal. No mass. Gallbladder and bile ducts: Cholelithiasis. Pancreas: Normal. No ductal dilation. Spleen: Normal. No splenomegaly. Adrenal glands: Normal. No mass. Kidneys and ureters: Normal. No hydronephrosis. Stomach and bowel: Unremarkable. No obstruction. No mucosal thickening. Appendix: No evidence of appendicitis. Intraperitoneal space: Trace free fluid in the pelvis. Vasculature: Unremarkable. No abdominal aortic aneurysm. Lymph nodes: Unremarkable. No enlarged lymph nodes. Urinary bladder: Unremarkable as visualized. Reproductive: Unremarkable as visualized. Bones/joints: Unremarkable. No acute fracture. Soft tissues: Unremarkable. CT/CT abdomen pelvis w con* [id number] IMPRESSION: No acute findings.
[2023-01-10] MEDS: iohexol 350 mg/mL 500 mL Btl (per mL) IV (03:45)
[2023-01-10 04:01] LABS: Hepatitis A Antibody IgM Non-Reactive (Nonreactive); Hepatitis B Core IgM Non-Reactive (Nonreactive); Hepatitis B Surface Antigen Non-Reactive (Nonreactive); Hepatitis C Virus Antibody Non-Reactive (Nonreactive)
[2023-01-10 04:03] LABS: Acetaminophen < 5.0 ug/mL (10-30)
[2023-01-10 04:20] VITALS: BP 136/93; PULSE 110; RESP 16; O2SAT 99
--- NOTE | 2023-01-12 10:54 | DCPLANNER ---
Addendum entered by Jamila Phillips 02/03/23 15:19: This appointment was cancelled Addendum entered by Jamila Phillips 01/12/23 15:16: Patient has a follow up appointment scheduled for Saturday, January 28, 2023 at 1:[address] Jacinto at general surgery. Original Note: pharmacy operations manager had message to schedule a follow up appointment for patient with general surgery. pharmacy operations manager sent patients information to the front office staff at general surgery. Patients information will be printed and reviewed. Clinic will call patient with appointment information.
== END 2023-01-10 06:02 | disposition home or self-care (01) ==
PROVIDERS: Emergency Provider Emergency Medicine; PCP Nurse Practitioner Family
DX: K80.20 Calculus of gallbladder without cholecystitis without obstruction (principal); E80.6 Other disorders of bilirubin metabolism; Z79.82 Long term (current) use of aspirin; I10 Essential (primary) hypertension
CPT/HCPCS: 74177; 76705; 80053; 80074; 80307; 81001; 83690; 84703; 85025; 86140; 96374; 96375; 99285; J1885; J2270; J2405; Q9967

== ENCOUNTER → 2023-12-31 08:13 | Outpatient (BNVA) | payer BC, MEDICAID, SELFPAY | PROVIDERS: PCP Nurse Practitioner Family; Visit Provider Obstetrics & Gynecology | DX: O09.899 Supervision of other high risk pregnancies, unspecified trimester (principal); Z3A.00 Weeks of gestation of pregnancy not specified | CPT/HCPCS: 84144 ==

== ENCOUNTER → 2024-01-04 08:02 | Outpatient (BNVA) | payer BC, MEDICAID, SELFPAY | PROVIDERS: PCP Nurse Practitioner Family; Visit Provider Nurse Practitioner Women's Health | DX: O09.899 Supervision of other high risk pregnancies, unspecified trimester (principal); Z3A.00 Weeks of gestation of pregnancy not specified | CPT/HCPCS: 81025; 84702 ==

== ENCOUNTER → 2024-01-11 15:46 | Outpatient (BNVA) | payer BC, MEDICAID, SELFPAY | PROVIDERS: PCP Nurse Practitioner Family; Visit Provider Obstetrics & Gynecology | DX: O09.899 Supervision of other high risk pregnancies, unspecified trimester (principal); Z3A.00 Weeks of gestation of pregnancy not specified | CPT/HCPCS: 76817; 84702 ==

== ENCOUNTER → 2024-01-14 08:30 | Outpatient (BNVA) | payer SELFPAY | PROVIDERS: PCP Nurse Practitioner Family; Visit Provider Obstetrics & Gynecology | DX: Z32.01 Encounter for pregnancy test, result positive (principal) | CPT/HCPCS: 84702 ==

== ENCOUNTER → 2024-01-19 11:42 | Outpatient (BNVA) | payer SELFPAY | PROVIDERS: PCP Nurse Practitioner Family; Visit Provider Obstetrics & Gynecology | DX: Z36.87 Encounter for antenatal screening for uncertain dates (principal) | CPT/HCPCS: 76817 ==

== ENCOUNTER 2024-01-21 09:59 | Day surgery (SDC) | payer SELFPAY ==
[2024-01-21] VITALS (15 sets, daily range): BP systolic 92–114; BP diastolic 52–74; PULSE 54–85; RESP 12–20; TEMP 36.4–36.9; O2SAT 96–100; BMI 31.7
--- NOTE | 2024-01-21 01:47 | W.PM.OPSFHP ---
Same Day Surgery H&P Indication for Procedure/HPI DATE OF PROCEDURE: January 21, 2024 CHIEF COMPLAINT/INDICATIONFOR SURGICAL PROCEDURE: missed PREOP DIAGNOSIS: missed PLANNED PROCEDURE: Operation Date: 01/21/24 13:25 Proposed Procedures p Dilation And Curettage (D&C) 49541, AB002.1(Not Applicable) - Gilson Hernandes MD 33 y.o. A1 With non-viable intrauterine gestation And elevated serum bhcg Now scheduled for suction dilatation and curettage of uterus Medications/Allergies* Home Medications Medication Instructions Recorded Confirmed Type famotidine 20 mg tablet (Pepcid) 20 mg PO DAILY PRN Heartburn 01/04/24 01/20/24 History metoprolol succinate 50 mg 50 mg PO DAILY 01/04/24 01/20/24 History tablet,extended release 24 hr sertraline 50 mg tablet (Zoloft) 50 mg PO DAILY 01/04/24 01/20/24 History Allergies/Adverse Reactions Allergy/AdvReac Type Severity Reaction Status Date / Time codeine Allergy ALGY-Rash Verified 01/20/24 12:12 Pertinent History/Comorbid Conditions* Medical History (Updated 01/04/24 @ 15:04 by Trice Plummer NP) No pertinent past medical history Denies diabetes, asthma, seizures, DVT/PE PMD: None Hypertension Diagnosed at the age of 18 and she was taking metoprolol 50 mg once a day. This was managed by her primary care provider. She has not needed medication since 2017 until her in 2019 when she was restarted on metoprolol midway through the . Surgical History (Updated 10/07/19 @ 14:[address] APN, MARTY) History of tonsillectomy (~2006) Family History (Updated 12/25/20 @ 10:50 by Fadumo Root) Hypertension Mother Father Uterine cancer Family/Other Maternal Great Grandmother--dx age 65 Denies family history of Colon cancer Ovarian cancer Diabetes Heart disease Hypercholesteremia Breast cancer Thyroid disease Stroke Pertinent Exam Findings alert, oriented x 3, clear to auscultation bilaterally and regular rate & rhythm Recommendations Surgery/Procedure today Coding Level of Care Code Acute Code for Chg Fwd Time Spent (min) 20
[2024-01-21] MEDS: scopolamine 1.5 Patch 1 PATCH TRANSDERMA (10:47)
[2024-01-21] MEDS: sodium chloride 0.9% 1,000 ML 30 ML IV (10:47)
--- NOTE | 2024-01-21 10:58 | ANES.PREANE2 ---
Pre-Anesthetic Assessment Height/Weight: Height 1.75 m Weight 97.522 kg Temp Pulse Resp BP Pulse Ox O2 Del Method 98.5 F 82 16 114/72 99 Room Air 01/21/24 10:19 01/21/24 10:19 01/21/24 10:19 01/21/24 10:19 01/21/24 10:19 01/21/24 10:24 Preop Diagnosis: missed Operation Date: 01/21/24 13:25 Proposed Procedures p Dilation And Curettage (D&C) 18050, AB002.1(Not Applicable) - Gilson Hernandes MD Last intake: Intake Last Liquid Date 01/20/24 Last Liquid Time 22:00 Last Solid Date 01/20/24 Last Solid Time 20:00 Social Tobacco and No alcohol Exam alert, oriented x 3, clear to auscultation bilaterally and regular rate & rhythm Airway Submandibular: within normal limits Cervical ROM: within normal limits Mallampati: Class II History/ROS No significant history except as noted CV/HEM Hypertension Anesthetic Plan ASA status: 2 Anesthesia: General Medications/Allergies Home Medications Medication Instructions Recorded Confirmed Last Taken Type famotidine 20 mg tablet (Pepcid) 20 mg PO DAILY PRN Heartburn 01/04/24 01/20/24 01/20/24 History metoprolol succinate 50 mg 50 mg PO DAILY 01/04/24 01/20/24 01/21/24 History tablet,extended release 24 hr sertraline 50 mg tablet (Zoloft) 50 mg PO DAILY 01/04/24 01/20/24 01/21/24 History promethazine 12.5 mg tablet 12.5 mg PO TID 30 days #90 tabs 01/15/24 01/20/24 01/20/24 Rx metoclopramide HCl 5 mg tablet 5 mg PO DIRECTED 01/21/24 01/21/24 01/21/24 History (Reglan) Allergies Allergy/AdvReac Type Severity Reaction Status Date / Time codeine Allergy ALGY-Rash Verified 01/20/24 12:12 Current Medications Generic Name Dose Route Start Last Admin Trade Name Freq PRN Reason Stop Dose Admin Sodium Chloride 1,000 mls @ 30 mls/hr 01/21/24 07:45 01/21/24 10:47 Sodium Chloride 0.9% IV 01/22/24 07:44 30 mls/hr .Q24H JULIANNA Administration PFSH Anesthesia Medical History No pertinent past medical history Denies diabetes, asthma, seizures, DVT/PE PMD: None Hypertension Diagnosed at the age of 18 and she was taking metoprolol 50 mg once a day. This was managed by her primary care provider. She has not needed medication since 2017 until her in 2019 when she was restarted on metoprolol midway through the . Surgical History History of tonsillectomy (~2006) Family History Mother Hypertension Father Hypertension Family/Other Uterine cancer Maternal Great Grandmother--dx age 65 Denies family history of Colon cancer Ovarian cancer Diabetes Heart disease Hypercholesteremia Breast cancer Thyroid disease Stroke Data Anesthesia Cardiac Studies: Echocardiogram Ultrasound 02/08/21
--- NOTE | 2024-01-21 11:39 | W.PM.OPSUD ---
Surgery/Procedure H&P Update DATE OF PROCEDURE: January 21, 2024 DATE H&P PERFORMED: 01/21/24 H&P UPDATE INFORMATION: I have reviewed H&P completed within last 30 days, I have examined patient prior to procedure and No changes to prior documentation PREOP DIAGNOSIS: missed PLANNED PROCEDURE: Operation Date: 01/21/24 13:25 Proposed Procedures p Dilation And Curettage (D&C) 52859, AB002.1(Not Applicable) - Gilson Hernandes MD
[2024-01-21] MEDS: methylergonovine 0.2 mg/mL INJ 1 mL 0.200000000000000011 MG IM (12:59)
[2024-01-21] MEDS: acetaminophen 1,000 MG/100 ML PIGGYBACK 400 MG IV (13:21)
[2024-01-21] MEDS: ondansetron 2 mg/ML SDV 2 mL 4 MG IVP (13:49)
--- NOTE | 2024-01-21 13:49 | SUR.PHASEII ---
medicated for nausea.
--- NOTE | 2024-01-21 14:05 | PM.OP ---
Operative Report Date of procedure: January 21, 2024 Pre-op diagnosis: missed at 8 weeks Post-op diagnosis: same Post-op findings: uterus sounded to 11 cm Productions of conception Procedure done: suction curettage of uterus Implants: none Specimens removed/disposition: products of conception Surgeon: Gilson Hernandes MD Anesthesia: MAC Estimated blood loss (mL): 100 Complications: none Condition: stable Disposition: PACU Brief History: 33 y.o. A1 With non-viable intrauterine gestation And elevated serum bhcg Procedure: Informed consent signed The patient was taken to the operating room. General anesthesia was induced. The patient was placed in dorsolithotomy position. The perineum was prepped and draped in the usual fashion. A bivalve speculum was placed in the vagina. The anterior lip of the cervix was grasped with a sharp-toothed tenaculum. The uterus was sounded to 11 cm. The cervix was serially dilated with Hegar dilators. A #10 curved suction curette was used to empty the contents of the uterus. Products of conception were obtained and sent to pathology. A sharp curette, followed again by the suction curette, were used to evacuate the uterus. No bleeding was seen. All instruments were then removed from the uterus, cervix and vagina. No bleeding was seen from the cervix. The patient was then placed supine, awakened, and taken to the recovery room. Postop condition: stable EBL: 100 cc Complications: none Sponge/instruments counts correct x two
--- NOTE | 2024-01-21 15:01 | ANE.PACU2 ---
Inpatient post-anesthesia follow up: Airway intact: Yes Vital signs: Temperature 97.9 F Pulse Rate 63 Respiratory Rate 16 Blood Pressure 103/67 Pulse Oximetry 99 Oxygen Delivery Me thod Room Air Oxygen Flow Rate Fraction of Inspir ed Oxygen Hydration adequate: Yes Nausea and vomiting: No Pain level: 4 Mental status: Baseline
== END 2024-01-21 14:35 | disposition home or self-care (01) ==
PROVIDERS: PCP Nurse Practitioner Family; Visit Provider Obstetrics & Gynecology
PROC: (CPT 58120; principal; 2024-01-21 13:15)
DX: O02.1 Missed abortion (principal); I10 Essential (primary) hypertension
CPT/HCPCS: 59820; 88305; J0131; J1100; J1885; J2210; J2405; J2704; J3010; J7030

== ENCOUNTER 2024-09-26 16:43 | Emergency (ER) | payer SELFPAY ==
[2024-09-26 17:13] VITALS: BP 135/88; PULSE 76; RESP 16; TEMP 36.8; O2SAT 100; BMI 31.7
--- NOTE | 2024-09-26 18:25 | USR_ITS ---
PROCEDURE INFORMATION: Exam: US First Trimester, Transabdominal and US , Transvaginal Exam date and time: 09/26/2024 7:37 PM Age: 33 years old Clinical indication: Lmp or gestational age (in weeks): 7w 2d by lmp; Antepartum complications; Bleeding; ; Additional info: Vaginal bleeding, early LABS AND CLINICAL REPORTS: Last menstrual period start date: 08/06/2024 Gestational age (Established): 7 w 2 d Estimated due date (Established): 05/13/2025 TECHNIQUE: Imaging protocol: Real-time transabdominal obstetrical ultrasound of the maternal pelvis and a first trimester , less than 14 weeks 0 days, with image documentation. Transvaginal imaging was used for better evaluation of the fetus, adnexa, and/or cervix. COMPARISON: US OB transvaginal [id number] 01/19/2024 11:54 AM FINDINGS: GESTATION: Gestation: Intrauterine gestation is visualized. pole is visualized. Yolk sac is visualized. An intrauterine gestational sac, yolk sac and pole identified. Embryo/ cardiac activity (BPM): 113 bpm. The estimated heart rate is 113 bpm. Extra-embryonic membranes/Placenta: Unremarkable. No subchorionic bleed. Amniotic/Chorionic fluid: Amniotic and extra-amniotic fluid are normal for gestational age. BIOMETRY: Gestational age (AUA): 6 w 1 d Estimated due date (AUA): 05/21/2025. The estimated due date is May 21 2025. Merlin rump length (CRL): The mean crown-rump length measures 0.47 cm corresponding to an estimated ultrasound age of 6 weeks, 1 day. MATERNAL: Uterus: Uterus measures 9.31 cm x 6.44 cm x 5.29 cm. Cervix: Unremarkable. Endocervical canal is closed. Right ovary/adnexa: Right ovary measures 3 cm x 1.8 cm x 2.4 cm. Right ovarian volume is 6.7 mL. Doppler interrogation of the ovaries performed documenting arterial flow bilaterally. Venous flow identified in the right ovary. Left ovary/adnexa: Left ovary measures 3.2 cm x 3.2 cm x 2.5 cm. Left ovarian volume is 13.4 mL. Venous flow in the left ovary likely obscured by contamination. Intraperitoneal space: No intraperitoneal free fluid. US/US OB <= 14 weeks fetus [id number] IMPRESSION: Single viable intrauterine as detailed.
[2024-09-26 18:58] VITALS: BP 137/87; PULSE 74; O2SAT 100
--- NOTE | 2024-09-26 19:32 | W.ED.PREGNAN ---
HPI - General: Chief complaint: Vaginal Bleeding Stated complaint: 8wks pregant, bleeding Time Seen by Provider: 09/26/24 18:48 Source: patient Mode of arrival: ambulatory Limitations: no limitations History of Present Illness: Patient is a 33-year-old female, A1, currently 7 weeks based off of blood test and presenting to the emergency department complaining of spotting throughout the day. Patient reports history of molar 7 months ago, had emergency surgery performed with Dr. Hernandes. Dr. Hernandes currently is her OB, she was urged to come to the emergency department with her bleeding for evaluation. She is not reporting any pain, is reporting slight discomfort but states that this feels similar to prior UTIs that she has had during . Also states she was preeclamptic with her second , she does take metoprolol for blood pressure normally. States that she has not bled through any pads, she has not had any headaches or palpitation, no seizure-like activity, and no syncopal episodes. Her blood pressure is 135/88 at triage. She is noting mild nausea and vomiting that she has had with every . MD Complaint: vaginal bleeding and other () Onset (ago): hour(s) Pain Consistency: constant Severity: mild Vaginal bleeding: light Patient : Yes Number of Weeks : 7 OB History - Current : no complications OB History - Previous Pregnancies: preeclampsia, hypertension, miscarriage and other (Molar ) care: followed by OB Associated symptoms: Reports nausea and vomiting; Deny abdominal pain, dysuria, headache(s) or syncope Related Data Home Medications Medication Instructions Recorded Confirmed famotidine 20 mg tablet (Pepcid) 20 mg PO DAILY PRN Heartburn 01/04/24 01/20/24 metoprolol succinate 50 mg 50 mg PO DAILY 01/04/24 01/20/24 tablet,extended release 24 hr sertraline 50 mg tablet (Zoloft) 50 mg PO DAILY 01/04/24 01/20/24 metoclopramide HCl 5 mg tablet 5 mg PO DIRECTED 01/21/24 01/21/24 (Reglan) Previous Rx's Medication Instructions Recorded promethazine 12.5 mg tablet 12.5 mg PO TID 30 days #90 tabs 01/15/24 nitrofurantoin 100 mg PO BID 7 days #14 caps 01/06/25 monohydrate/macrocrystals 100 mg capsule (Macrobid) Allergies Allergy/AdvReac Type Severity Reaction Status Date / Time No Known Allergies Allergy Verified 09/26/24 17:18 Review of Systems General: Reports: 10 or more systems reviewed and unremarkable except in HPI and below Const: Reports: other (); Denies: fever(s), chills, change in appetite, change in weight or diaphoresis ENMT: Denies: throat pain or hoarseness Card: Denies: chest pain, palpitations, lightheadedness or syncope Resp: Denies: dyspnea, productive cough or wheezing GI: Reports: nausea, vomiting and GI cramping; Denies: abdominal pain, diarrhea, constipation, bloating, change in stool character or hematochezia : Reports: vaginal bleeding; Denies: flank pain, difficulty voiding, dysuria, urinary frequency or urinary urgency Musc: Denies: neck pain or back pain Skin/Breast: Denies: rash or new lesions Neuro: Denies: headache(s) or dizziness PFSH ED PFSH: Medical History No pertinent past medical history Denies diabetes, asthma, seizures, DVT/PE PMD: None Hypertension Diagnosed at the age of 18 and she was taking metoprolol 50 mg once a day. This was managed by her primary care provider. She has not needed medication since 2018 until her in 2019 when she was restarted on metoprolol midway through the . Surgical History History of tonsillectomy (~2007) Family History Mother Hypertension Father Hypertension Family/Other Uterine cancer Maternal Great Grandmother--dx age 65 Denies family history of Colon cancer Ovarian cancer Diabetes Heart disease Hypercholesteremia Breast cancer Thyroid disease Stroke Physical Exam Const: COMMON NORMALS: no acute distress, patient oriented x3, no limitations, healthy appearing, alert and well nourished GENERAL APPEARANCE: cooperative and comfortable ORIENTATION/CONSCIOUSNESS: Yes awake Eye: COMMON NORMALS: Equal, round and reactive pupils present, EOMs intact bilaterally, conjunctivae normal and normal visual zavala by confrontation CONJUNCTIVA: Yes conjunctivae normal PUPIL: Yes Equal, round and reactive pupils present Neck/C-Spine: COMMON NORMALS: full ROM, supple, no meningeal signs and no JVD Resp: COMMON NORMALS: normal respiratory effort, No retractions, No use of accessory muscles and clear to auscultation bilaterally AUSCULTATION: clear to auscultation bilaterally, no crackles, no rales, no rhonchi and no wheezes Cardio: COMMON NORMALS: no JVD, regular rate, regular rhythm, S1 normal heart sound present, S2 normal heart sound present, No gallops present (Cardio), No clicks present (Cardio), No murmurs present (Cardio), No rub (Cardio) and Peripheral pulses 2+ throughout RATE: regular rate RHYTHM: regular rhythm HEART SOUNDS: S1 normal heart sound present and S2 normal heart sound present PERIPHERAL PULSES: Peripheral pulses 2+ throughout GI: COMMON NORMALS: Normal to inspection, nondistended, normoactive bowel sounds present, Soft to palpation, non-tender, No hepatosplenomegaly present and no masses AUSCULTATION: Yes normoactive bowel sounds PALPATION: Yes Soft to palpation, No Guarding due to palpation present (GI), No Rigid due to palpation and Yes No hepatosplenomegaly present RECTAL EXAM: deferred : COMMON NORMALS: Yes no CVA tenderness BLADDER/KIDNEY EXAM: Yes no CVA tenderness Back/Pelvis: COMMON NORMALS: no CVA tenderness Extremity: COMMON NORMALS: normal to inspection and full ROM Neuro: COMMON NORMALS: patient oriented x3, moves all extremities, no focal motor deficits and no sensory deficits noted SENSORIUM/ORIENTATION: Yes alert MENINGEAL SIGNS: Yes no meningeal signs Psych: COMMON NORMALS: mental status grossly normal, cooperative and speech normal SPEECH: Yes normal speech Skin: COMMON NORMALS: no rashes or lesions noted GENERAL SKIN EXAM: no rashes or lesions noted Procedures Perimortem Number of Weeks : 7 Course Vital Signs: Vital signs: Vital Signs Temperature 98.2 F 09/26/24 17:13 Pulse Rate 80 09/26/24 21:00 Respiratory Rate 16 09/26/24 17:13 Blood Pressure 114/80 09/26/24 20:38 Pulse Oximetry 97 09/26/24 21:00 Oxygen Delivery Me thod Room Air 09/26/24 21:00 MDM - OB/Uterine Contractions Medical Decision Making This patient presented with vaginal spotting today, she is currently 7 weeks . Had a molar operated on by Dr. Hernandes last year. Patient has history of preeclampsia as well as urinary tract infections during . Her CBC did not demonstrate any signs of acute blood loss anemia or infection. Metabolic panel normal showing normal kidney function. UTI does have evidence of urinary tract infection. Ultrasound showing a single viable intrauterine with no acute abnormalities. Vitals have been stable, she does have a history of high blood pressure and is on metoprolol. I spoke with Dr. Hernandes, who agrees that this can follow-up as outpatient and treat with antibiotics for the complicated UTI. Discussed with patient, she states she has an appointment on Thursday and will keep this. I discussed with her return precautions such as worsening of bleeding, feeling like she is going to pass out, elevated blood pressure readings, or severe worsening of abdominal pain. She endorses understanding and will follow-up on Thursday. Will start antibiotics. Lab Data 09/26/24 21:10 09/26/24 19:10 Radiology Impressions Ultrasound 09/26/24 18:25 IMPRESSION: Single viable intrauterine as detailed. Laboratory Results WBC 9.07 10^3/uL (3.29-11.43) 09/26/24 21:10 Corrected WBC Cancelled 09/26/24 19:10 RBC 4.26 10^6/uL (3.85-5.65) 09/26/24 21:10 Hgb 12.80 g/dL (11.27-16.99) 09/26/24 21:10 Hct 39.0 % (36-47) 09/26/24 21:10 MCV 91.5 fl (85-98) 09/26/24 21:10 MCH 30.0 pg (27-33) 09/26/24 21:10 MCHC 32.8 g/dL (30-55) 09/26/24 21:10 RDW 13.8 % (12.1-15.1) 09/26/24 21:10 Plt Count 232 10^3/cmm (157-399) 09/26/24 21:10 MPV 11.0 fL (7.4-10.4) H 09/26/24 21:10 Gran % Cancelled 09/26/24 19:10 Neut % (Auto) 62.7 % 09/26/24 21:10 Lymph % (Auto) 28.4 % 09/26/24 21:10 [place] % (Auto) 5.0 % 09/26/24 21:10 Eos % (Auto) 2.8 % 09/26/24 21:10 Baso % (Auto) 0.7 % 09/26/24 21:10 Neut # (Auto) 5.69 10^3/uL (1.8-7.7) 09/26/24 21:10 Lymph # (Auto) 2.6 10^3/uL (0.8-4.8) 09/26/24 21:10 [place] # (Auto) 0.5 10^3/uL (0.2-0.9) 09/26/24 21:10 Eos # (Auto) 0.3 10^3/uL (0.0-0.8) 09/26/24 21:10 Baso # (Auto) 0.1 10^3/uL (0.0-0.1) 09/26/24 21:10 Absolute Gran (auto) Cancelled 09/26/24 19:10 Nucleated RBC % (auto) 0 % 09/26/24 21:10 Nucleated RBCs # 0.0 /100WBC 09/26/24 21:10 Sodium 134 mmol/L (136-145) L 09/26/24 19:10 Potassium 4.1 mmol/L (3.5-5.1) 09/26/24 19:10 Chloride 101 mmol/L (98-107) 09/26/24 19:10 Carbon Dioxide 21 mmol/L (22-29) L 09/26/24 19:10 Anion Gap 16.1 (5-19) 09/26/24 19:10 BUN 12 mg/dL (6-20) 09/26/24 19:10 Creatinine 0.7 mg/dL (0.5-0.9) 09/26/24 19:10 GFR Calculation 97.0 mL/min (90-130) 09/26/24 19:10 Glucose 84 mg/dL (65-115) 09/26/24 19:10 Calculated Osmolality 277 mOsm/kg (285-295) L 09/26/24 19:10 Calcium 9.8 mg/dL (8.5-10.5) 09/26/24 19:10 Total Bilirubin 0.2 mg/dL (0.15-1.2) 09/26/24 19:10 AST 13 U/L (0-32) 09/26/24 19:10 ALT 14 U/L (0-33) 09/26/24 19:10 Alkaline Phosphatase 71 U/L (35-105) 09/26/24 19:10 Total Protein 7.9 g/dL (6.6-8.7) 09/26/24 19:10 Albumin 4.4 g/dL (3.5-5.2) 09/26/24 19:10 Globulin 3.5 g/dL (1.3-4.6) 09/26/24 19:10 Ser , Semi-Qnt 07097.00 mIU/mL 09/26/24 19:10 Urine Color Yellow (Yellow) 09/26/24 19:43 Urine Appearance Cloudy (CLEAR) A 09/26/24 19:43 Urine pH 6.0 (5-7) 09/26/24 19:43 Ur Specific [place] 1.022 (1.005-1.030) 09/26/24 19:43 Urine Protein Negative (Negative) 09/26/24 19:43 Urine Glucose (UA) Negative (Normal) 09/26/24 19:43 Urine Ketones Negative (Negative) 09/26/24 19:43 Urine Blood 2+ (Negative) A 09/26/24 19:43 Urine Nitrate Negative (Negative) 09/26/24 19:43 Urine Bilirubin Negative (Negative) 09/26/24 19:43 Urine Urobilinogen 0.2 mg/dL (Negative) 09/26/24 19:43 Ur Leukocyte Esterase 2+ (Negative) A 09/26/24 19:43 Urine RBC 0-2 /hpf (0-2) 09/26/24 19:43 Urine WBC 11-20 /hpf (0-5) H 09/26/24 19:43 Ur Squamous Epith Cells 6-10 /hpf (0-5) 09/26/24 19:43 Amorphous Sediment Not Reportable 09/26/24 19:43 Urine Bacteria 4+ /hpf (NONE) H 09/26/24 19:43 Hyaline Casts 0-4 /lpf H 09/26/24 19:43 Blood Type A Positive 09/26/24 19:10 Rho(D) Type Rh positive 09/26/24 19:10 All radiology interpretation(s) finalized by discharge Discharge Plan Discharge Patient Disposition: Home Clinical Impression: Urinary tract infection during , Vaginal spotting, Intrauterine Condition: Stable Prescriptions: New nitrofurantoin monohyd/m-cryst [Macrobid] 100 mg capsule 100 mg PO BID 7 Days Qty: 14 0RF Rx Instructions: must administer with a meal/food No Action famotidine [Pepcid] 20 mg tablet 20 mg PO DAILY PRN (Reason: Heartburn) sertraline [Zoloft] 50 mg tablet 50 mg PO DAILY metoprolol succinate 50 mg tablet extended release 24 hr 50 mg PO DAILY promethazine 12.5 mg tablet 12.5 mg PO TID 30 Days Qty: 90 0RF Reglan 5 mg tablet 5 mg PO DIRECTED Discharge Orders: Discharge ED (Routine); Ordered 09/26/24 Ordered By: Dariusz Alvarez Referrals: Jeanne Saba FNP [Primary Care Provider] - Patient Instructions: Urinary Tract Infection in (ED) Activity Restrictions/Additional Instructions: Follow-up with Dr. Hernandes. Take antibiotics as prescribed. If you have any worsening of your bleeding, worsening pain, feeling like you are going to pass out or extreme dizziness, please return to the emergency department immediately as we discussed. Make sure to drink plenty of fluids. See attached patient instructions for further education. Coding Level of Care Code ED [employer] Tr[employer] Installer for Sydney Cervantes
[2024-09-26 19:44] LABS: Alanine Aminotransferase 14 U/L (0-33); Albumin Level 4.4 g/dL (3.5-5.2); Alkaline Phosphatase 71 U/L (35-105); Anion Gap 16.1 (5-19); Aspartate Amino Transferase 13 U/L (0-32); Blood Urea Nitrogen 12 mg/dL (6-20); Calcium 9.8 mg/dL (8.5-10.5); Carbon Dioxide 21 mmol/L (22-29); Chloride 101 mmol/L (98-107); Creatinine Clr Calc Pharmacy 143.3989; Globulin 3.5 g/dL (1.3-4.6); Glucose 84 mg/dL (65-115); Osmolality Calculated 277 mOsm/kg (285-295); Potassium 4.1 mmol/L (3.5-5.1); Sodium 134 mmol/L (136-145); Total Bilirubin 0.2 mg/dL (0.15-1.2); Total Protein 7.9 g/dL (6.6-8.7)
[2024-09-26 19:54] LABS: Bilirubin Urine Negative (Negative); Blood Urine 2+ (Negative); Glucose Urine UA Negative (Normal); Ketones Urine Negative (Negative); Leukocyte Esterase Urine 2+ (Negative); Nitrate Urine Negative (Negative); Protein Urine Negative (Negative); Specific Gravity, Urine 1.022 (1.005-1.030); Urine Appearance Cloudy (CLEAR); Urine Color Yellow (Yellow); Urobilinogen Urine 0.2 mg/dL (Negative)
[2024-09-26 20:00] LABS: Add Urine Microscopic? YES; Bacteria Urine 4+ /hpf; Hyaline Casts Urine 0-4 /lpf; RBC Urine 0-2 /hpf (0-2)
[2024-09-26 20:08] LABS: Add Urine Culture? Yes
[2024-09-26 20:38] VITALS: BP 114/80; PULSE 77; O2SAT 98
[2024-09-26 21:00] VITALS: PULSE 80; O2SAT 97
[2024-09-26 21:23] LABS: Basophils # 0.1 10^3/uL (0.0-0.1); Basophils % 0.7 %; Eosinophils # 0.3 10^3/uL (0.0-0.8); Eosinophils % 2.8 %; Lymphocytes # 2.6 10^3/uL (0.8-4.8); Lymphocytes % 28.4 %; Mean Corpuscular HGB Conc 32.8 g/dL (30-55); Mean Corpuscular Volume 91.5 fl (85-98); Monocytes # 0.5 10^3/uL (0.2-0.9); Neutrophils # 5.69 10^3/uL (1.8-7.7); Neutrophils % 62.7 %; Nucleated Red Blood Cells % 0 %; Platelet Count 232 10^3/cmm (157-399); Red Blood Count 4.26 10^6/uL (3.85-5.65); Red Cell Distribution Width 13.8 % (12.1-15.1); White Blood Count 9.07 10^3/uL (3.29-11.43)
[2024-09-26 21:33] VITALS: BP 114/70; PULSE 86; O2SAT 97
== END 2024-09-26 21:35 | disposition home or self-care (01) ==
PROVIDERS: Emergency Medicine; Emergency Provider Physician Assistant; PCP Nurse Practitioner Family
DX: O23.41 Unspecified infection of urinary tract in pregnancy, first trimester (principal); N39.0 Urinary tract infection, site not specified; O26.851 Spotting complicating pregnancy, first trimester; Z3A.01 Less than 8 weeks gestation of pregnancy; I10 Essential (primary) hypertension
CPT/HCPCS: 36415; 76801; 80053; 81001; 84702; 85025; 86900; 87086; 99284

== ENCOUNTER → 2024-09-28 14:26 | Outpatient (BNVA) | payer SELFPAY | PROVIDERS: PCP Nurse Practitioner Family; Visit Provider Nurse Practitioner Women's Health | DX: N91.2 Amenorrhea, unspecified (principal) | CPT/HCPCS: 81025 ==

== ENCOUNTER → 2024-10-03 14:40 | Outpatient (BNVA) | payer SELFPAY | PROVIDERS: PCP Nurse Practitioner Family; Visit Provider Nurse Practitioner Women's Health | DX: O20.9 Hemorrhage in early pregnancy, unspecified (principal); R30.0 Dysuria; Z3A.00 Weeks of gestation of pregnancy not specified | CPT/HCPCS: 81000; 84144 ==

== ENCOUNTER → 2024-10-12 07:56 | Outpatient (BNVA) | payer MEDICAID, SELFPAY | PROVIDERS: PCP Nurse Practitioner Family; Visit Provider Nurse Practitioner Women's Health | DX: O26.891 Other specified pregnancy related conditions, first trimester (principal); Z3A.08 8 weeks gestation of pregnancy | CPT/HCPCS: 76801; 84144 ==

== ENCOUNTER → 2024-11-07 11:11 | Outpatient (BNVA) | payer MEDICAID, SELFPAY | PROVIDERS: PCP Nurse Practitioner Family; Visit Provider Nurse Practitioner Women's Health | DX: Z34.90 Encounter for supervision of normal pregnancy, unspecified, unspecified trimester (principal) | CPT/HCPCS: 80307; 84315; 84443; 85025; 86592; 86762; 86803; 86850; 86900; 87086; 87340; 87491; 87591; 87661; 87806 ==

== ENCOUNTER → 2024-11-18 14:08 | Outpatient (BNVA) | payer MEDICAID, SELFPAY | PROVIDERS: PCP Nurse Practitioner Family; Visit Provider Obstetrics & Gynecology | DX: Z34.80 Encounter for supervision of other normal pregnancy, unspecified trimester (principal) | CPT/HCPCS: 84315; 87624 ==

== ENCOUNTER → 2024-12-12 15:00 | Outpatient (BNVA) | payer MEDICAID, SELFPAY | PROVIDERS: PCP Nurse Practitioner Family; Visit Provider Nurse Practitioner Women's Health | DX: Z34.80 Encounter for supervision of other normal pregnancy, unspecified trimester (principal) | CPT/HCPCS: 82105; 84315 ==

== ENCOUNTER → 2024-12-28 13:07 | Outpatient (BNVA) | payer MEDICAID, SELFPAY | PROVIDERS: PCP Nurse Practitioner Family; Visit Provider Nurse Practitioner Women's Health | DX: R30.0 Dysuria (principal) | CPT/HCPCS: 81000; 87086 ==

== ENCOUNTER → 2025-01-04 09:31 | Outpatient (BNVA) | payer MEDICAID, SELFPAY | PROVIDERS: PCP Nurse Practitioner Family; Visit Provider Obstetrics & Gynecology | DX: O26.892 Other specified pregnancy related conditions, second trimester (principal); Z3A.20 20 weeks gestation of pregnancy | CPT/HCPCS: 76805 ==

== ENCOUNTER → 2025-01-11 08:01 | Outpatient (BNVA) | payer MEDICAID, SELFPAY | PROVIDERS: PCP Nurse Practitioner Family; Visit Provider Obstetrics & Gynecology | DX: Z34.80 Encounter for supervision of other normal pregnancy, unspecified trimester (principal) | CPT/HCPCS: 84315 ==

== ENCOUNTER → 2025-02-01 08:37 | Outpatient (BNVA) | payer MEDICAID, SELFPAY | PROVIDERS: PCP Nurse Practitioner Family; Visit Provider Nurse Practitioner Women's Health | DX: Z34.80 Encounter for supervision of other normal pregnancy, unspecified trimester (principal) | CPT/HCPCS: 76816; 84315 ==

== ENCOUNTER 2025-02-06 09:54 | Outpatient (CLI) | payer BC, MEDICAID, SELFPAY ==
[2025-02-06] VITALS (10 sets, daily range): BP systolic 128–160; BP diastolic 64–92; PULSE 76–122; BMI 36.9
[2025-02-06] MEDS: TRAMadol 50 mg Tablet PO (12:11)
[2025-02-06 12:13] LABS: Basophils % 0.2 %; Eosinophils # 0.1 10^3/uL (0.0-0.8); Eosinophils % 0.7 %; Hematocrit 33.5 % (36-47); Lymphocytes # 1.7 10^3/uL (0.8-4.8); Lymphocytes % 20.7 %; Mean Corpuscular HGB Conc 32.5 g/dL (30-55); Mean Corpuscular Volume 92.3 fl (85-98); Mean Platelet Volume 10.7 fL (7.4-10.4); Monocytes # 0.4 10^3/uL (0.2-0.9); Monocytes % 4.8 %; Neutrophils # 5.97 10^3/uL (1.8-7.7); Neutrophils % 73.2 %; Nucleated Red Blood Cells % 0 %; Platelet Count 202 10^3/cmm (157-399); Red Blood Count 3.63 10^6/uL (3.85-5.65); Red Cell Distribution Width 14.2 % (12.1-15.1); White Blood Count 8.16 10^3/uL (3.29-11.43)
[2025-02-06 12:16] LABS: Bilirubin Urine Negative (Negative); Blood Urine Negative (Negative); Glucose Urine UA Negative (Normal); Ketones Urine Negative (Negative); Leukocyte Esterase Urine 2+ (Negative); Nitrate Urine Negative (Negative); Protein Urine Trace (Negative); Specific Gravity, Urine 1.014 (1.005-1.030); Urine Appearance Cloudy (CLEAR); Urine Color Yellow (Yellow); pH Urine 7.5 (5-7)
[2025-02-06 12:21] LABS: Add Urine Microscopic? YES; Universal Test for UA Present (0)
[2025-02-06 12:36] LABS: Alanine Aminotransferase 21 U/L (0-33); Albumin Level 3.6 g/dL (3.5-5.2); Alkaline Phosphatase 71 U/L (35-105); Aspartate Amino Transferase 22 U/L (0-32); Blood Urea Nitrogen 5 mg/dL (6-20); Calcium 8.8 mg/dL (8.5-10.5); Carbon Dioxide 23 mmol/L (22-29); Chloride 104 mmol/L (98-107); Creatinine Clr Calc Pharmacy 214.9431; Globulin 3.3 g/dL (1.3-4.6); Glomerular Filtration Rate 142.1 mL/min (90-130); Glucose 79 mg/dL (65-115); Osmolality Calculated 282 mOsm/kg (285-295); Sodium 138 mmol/L (136-145); Total Bilirubin 0.2 mg/dL (0.15-1.2); Total Protein 6.9 g/dL (6.6-8.7); Uric Acid 5.3 mg/dL (2.4-5.7)
[2025-02-06 12:43] LABS: Bacteria Urine 1+ /hpf; Squamous Epithelial Cell Urine 21-50 /hpf (0-5); UA Manual Slide Review YES
[2025-02-06 12:47] LABS: Urine Creatinine 115 mg/dL (28-217); Urine Protein Random 14 mg/dL
[2025-02-06 12:49] LABS: UPRO/UCREAT Ratio 0.12 mg/mg CR
== END 2025-02-06 13:25 | disposition home or self-care (01) ==
LOC: OPOB 09:55 → OBGYN 09:56
PROVIDERS: PCP Nurse Practitioner Family; Visit Provider Obstetrics & Gynecology
DX: O26.899 Other specified pregnancy related conditions, unspecified trimester (principal); Z3A.00 Weeks of gestation of pregnancy not specified; R51.9 Headache, unspecified; R11.2 Nausea with vomiting, unspecified; H53.8 Other visual disturbances; R06.02 Shortness of breath
CPT/HCPCS: 36415; 80053; 81001; 82570; 84156; 84550; 85025; 99211; J9999

== ENCOUNTER 2025-02-07 13:59 | Outpatient (CLI) | payer BC, MEDICAID, SELFPAY ==
[2025-02-07 14:15] VITALS: BMI 36.9
[2025-02-07] MEDS: sodium chloride 0.9% 1,000 ML 999 ML IV ×2 (14:34→14:53)
[2025-02-07 14:35] LABS: Urine Total Protein 10.3 mg/dL (0-150)
[2025-02-07 14:38] VITALS: BP 139/76; PULSE 83
[2025-02-07 14:40] LABS: Total Volume, Urine 400 mL; Urine Total Protein 24 Hour 41.2 mg/24hr (0-150)
[2025-02-07 15:08] VITALS: BP 130/70; PULSE 81
== END 2025-02-07 15:30 | disposition home or self-care (01) ==
LOC: OPOB 14:00 → OBGYN 14:32
PROVIDERS: PCP Nurse Practitioner Family; Visit Provider Obstetrics & Gynecology
DX: O26.899 Other specified pregnancy related conditions, unspecified trimester (principal); Z3A.00 Weeks of gestation of pregnancy not specified
CPT/HCPCS: 59025; 84156; 99211; J7030

== ENCOUNTER 2025-02-27 09:35 | Outpatient (CLI) | payer BC, MEDICAID, SELFPAY ==
[2025-02-27 09:48] VITALS: BMI 36.9
[2025-02-27] MEDS: betamethasone susp 6 mg/mL 5 mL 12 MG IM (09:53)
== END 2025-02-27 09:55 | disposition home or self-care (01) ==
LOC: OPOB 09:40
PROVIDERS: PCP Nurse Practitioner Family; Visit Provider Obstetrics & Gynecology
DX: O26.899 Other specified pregnancy related conditions, unspecified trimester (principal); Z3A.00 Weeks of gestation of pregnancy not specified
CPT/HCPCS: 82950; 84315; 85025; 96372; J0702

== ENCOUNTER 2025-02-28 16:20 | Outpatient (CLI) | payer BC, MEDICAID, SELFPAY ==
[2025-02-28 16:20] VITALS: BMI 36.7
[2025-02-28] MEDS: betamethasone susp 6 mg/mL 5 mL 12 MG IM (16:44)
== END 2025-02-28 16:48 | disposition home or self-care (01) ==
PROVIDERS: PCP Nurse Practitioner Family; Visit Provider Obstetrics & Gynecology
DX: O26.899 Other specified pregnancy related conditions, unspecified trimester (principal); Z3A.00 Weeks of gestation of pregnancy not specified
CPT/HCPCS: 96372; J0702

== ENCOUNTER → 2025-03-13 08:03 | Outpatient (BNVA) | payer BC, MEDICAID, SELFPAY | PROVIDERS: PCP Nurse Practitioner Family; Visit Provider Obstetrics & Gynecology | DX: I10 Essential (primary) hypertension (principal); Z34.90 Encounter for supervision of normal pregnancy, unspecified, unspecified trimester | CPT/HCPCS: 84315 ==

== ENCOUNTER → 2025-03-23 16:19 | Outpatient (BNVA) | payer BC, MEDICAID, SELFPAY | PROVIDERS: PCP Nurse Practitioner Family; Visit Provider Obstetrics & Gynecology | DX: Z34.90 Encounter for supervision of normal pregnancy, unspecified, unspecified trimester (principal) | CPT/HCPCS: 84315 ==

== ENCOUNTER 2025-03-27 08:56 | Outpatient (CLI) | payer BC, MEDICAID, SELFPAY ==
[2025-02-07 14:12] VITALS: BP 144/87; PULSE 92; RESP 16
[2025-03-27] VITALS (27 sets, daily range): BP systolic 101–121; BP diastolic 59–80; PULSE 65–93; RESP 15; BMI 36.6
[2025-03-27] MEDS: oxyCODONE-APAP 5-325 mg Tablet 1 TAB PO (11:37)
[2025-03-27 11:49] LABS: Hematocrit 31.6 % (36-47); Hemoglobin 10.30 g/dL (11.27-16.99); Mean Corpuscular HGB Conc 32.6 g/dL (30-55); Mean Corpuscular Hemoglobin 29.5 pg (27-33); Mean Corpuscular Volume 90.5 fl (85-98); Nucleated Red Blood Cells % 0 %; Platelet Count 189 10^3/cmm (157-399); Red Blood Count 3.49 10^6/uL (3.85-5.65); White Blood Count 8.69 10^3/uL (3.29-11.43)
[2025-03-27 11:53] LABS: Glucose Urine UA Negative (Normal); Nitrate Urine Negative (Negative); Specific Gravity, Urine 1.006 (1.005-1.030)
[2025-03-27 11:59] LABS: Add Urine Microscopic? YES
[2025-03-27 12:06] LABS: Alanine Aminotransferase 12 U/L (0-33); Albumin Level 3.3 g/dL (3.5-5.2); Alkaline Phosphatase 107 U/L (35-105); Anion Gap 15.3 (5-19); Aspartate Amino Transferase 14 U/L (0-32); Blood Urea Nitrogen 5 mg/dL (6-20); Calcium 9.1 mg/dL (8.5-10.5); Carbon Dioxide 22 mmol/L (22-29); Chloride 103 mmol/L (98-107); Creatinine Clr Calc Pharmacy 214.0266; Globulin 3.5 g/dL (1.3-4.6); Glucose 77 mg/dL (65-115); Osmolality Calculated 278 mOsm/kg (285-295); Potassium 4.3 mmol/L (3.5-5.1); Sodium 136 mmol/L (136-145); Total Protein 6.8 g/dL (6.6-8.7); Uric Acid 5.3 mg/dL (2.4-5.7)
[2025-03-27 12:18] LABS: UPRO/UCREAT Ratio 0.16 mg/mg CR
== END 2025-03-27 16:15 | disposition home or self-care (01) ==
LOC: OPOB 09:07 → OBGYN 09:08
PROVIDERS: Obstetrics & Gynecology; PCP Nurse Practitioner Family; Visit Provider Obstetrics & Gynecology
DX: O13.9 Gestational [pregnancy-induced] hypertension without significant proteinuria, unspecified trimester (principal); Z3A.00 Weeks of gestation of pregnancy not specified; H53.8 Other visual disturbances
CPT/HCPCS: 36415; 59025; 80053; 81001; 82570; 84156; 84315; 84550; 85025; 87086; 99211; J9999

== ENCOUNTER 2025-03-29 10:49 | Outpatient (CLI) | payer BC, MEDICAID, SELFPAY ==
[2025-03-29] VITALS (49 sets, daily range): BP systolic 100–172; BP diastolic 60–115; PULSE 72–171; RESP 16–18; TEMP 36.2; O2SAT 85–100; BMI 36.6
[2025-03-29] MEDS: ondansetron 2 mg/ML SDV 2 mL 4 MG IVP ×2 (12:02→17:51)
--- NOTE | 2025-03-29 14:09 | CTR_ITS ---
PROCEDURE INFORMATION: Exam: CT Head Without Contrast Exam date and time: 03/29/2025 2:21 PM Age: 34 years old Clinical indication: Pain; Headache not specified; Headache x3 days, HTN. PT is 33wks , shielded back and front with lead apron; ; Additional info: Severe headache TECHNIQUE: Imaging protocol: Computed tomography of the head without contrast. Radiation optimization: All CT scans at this facility use at least one of these dose optimization techniques: automated exposure control; mA and/or kV adjustment per patient size (includes targeted exams where dose is matched to clinical indication); or iterative reconstruction. COMPARISON: No relevant prior studies available. RADIATION DOSE METRICS: Total DLP (mGy-cm): 1099.88 FINDINGS: Brain: Normal. No hemorrhage. Unremarkable white matter. No mass effect. Cerebral ventricles: No ventriculomegaly. Paranasal sinuses: Pansinusitis is demonstrated with mild sparing of both frontal sinuses. There is nearly complete opacification of the ethmoid air cells and sphenoid sinuses as well as the right maxillary sinus. The left maxillary sinus shows a proximally 50% opacification and shows a suggestion of an air-fluid level. Maxillary sinuses are partially included on the field of view. Mastoid air cells: Visualized mastoid air cells are well aerated. Bones: Unremarkable. No acute fracture. Soft tissues: Unremarkable. CT/CT head wo con* [id number] IMPRESSION: 1. Extensive paranasal sinusitis as detailed above. 2. No evidence of intracranial pathology.
[2025-03-29] MEDS: HYDROmorphone 0.5 MG/0.5 ML INJ 2 MG IVP (14:39)
--- NOTE | 2025-03-29 15:10 | PM.OBGYHP ---
Providers/Chief Complaint Admitting Physician: Gilson Hernandes MD Primary SYSTEMS SOFTWARE DESIGNER: Gilson Hernandes MD Primary Care Provider: GERMAN Shetty Chief Complaint: Fluids HPI SYSTEMS SOFTWARE DESIGNER History of Present Illness Montserrat Garza is a 34 year old female A2 EDC May 21, 2025 At 32 w 3 d Presents to L&D c/o severe headache x four days with vomiting unable to sleep due to pain + blurry vision at times No abdominal pain, vaginal bleeding + movements Patient was seen in L&D on March 27 for headache BPs were normal, as were PIH labs She was started on 24-h urine collection, which has not been done yet Patient was discharged States that headache returned and has worsened Present Details : 3 Para: 2 Medications/Allergies Home Medications ?Medication ?Instructions ?Recorded ?Confirmed ?Last Taken ?Type famotidine 20 mg tablet (Pepcid) 20 mg PO DAILY PRN Heartburn 01/04/24 03/29/25 01/20/24 History metoclopramide HCl 5 mg tablet 5 mg PO DAILY #60 tabs 09/28/24 03/29/25 Unknown Rx (Reglan) sertraline 50 mg tablet (Zoloft) 50 mg PO DAILY #90 tabs 01/11/25 03/29/25 Unknown Rx metoprolol succinate 50 mg See Rx Instructions .Route 02/08/25 03/29/25 Unknown Rx tablet,extended release 24 hr .COMPLEX #30 tabs Allergies Allergy/AdvReac Type Severity Reaction Status Date / Time No Known Allergies Allergy Verified 03/27/25 07:44 [facility] SYSTEMS SOFTWARE DESIGNER PFSH: Medical History (Updated 03/30/25 @ 04:56 by Gilson Hernandes MD) No pertinent past medical history Denies diabetes, asthma, seizures, DVT/PE PMD: None Hypertension Diagnosed at the age of 18 and she was taking metoprolol 50 mg once a day. This was managed by her primary care provider. She has not needed medication since 2017 until her in 2019 when she was restarted on metoprolol midway through the . Surgical History History of cholecystectomy (~2022) History of tonsillectomy (~2006) Family History Mother Hypertension Father Hypertension Family/Other Uterine cancer Maternal Great Grandmother--dx age 65 Denies family history of Colon cancer Ovarian cancer Diabetes Heart disease Hypercholesteremia Breast cancer Thyroid disease Stroke Social History Smoking and tobacco/nicotine status: never used tobacco/nicotine Other Female Reproductive History: Hx Age of Menarche: 13 History History History 4 Term 1 0 Miscarriages/Ectopic 1 Living Children 2 Care KATLYN Calculator Estimated Delivery Date Method Current WG Current Estimate 05/21/25 Ultrasound #1 32w 4d Other Estimates 05/13/25 LMP (Uncertain) 33w 5d 05/22/25 Ultrasound #2 32w 3d Specific Issues/Plans CHRONIC HYPERTENSION: taking 50 mg of metropolol ER daily NAUSEA AND VOMITING IN : takes reglan as needed BLEEDING IN EARLY : taking 400 mg vaginal progesterone daily HX OF MOLAR : 01/21/24 d&c [address] Dr[address] Hernandes, was told not get for 12 months post molar . This was not intentional. 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: father of baby negative carrier screening HX OF PRE-ECLAMPSIA IN PRIOR HX OF GROWTH RESTRICTION IN PRIOR HX OF LABOR Vitals/I&O/Wt Last Vital Signs Temp 97.2 F L 03/29/25 15:00 Pulse 68 03/30/25 04:37 Resp 18 03/29/25 22:46 BP 111/64 03/30/25 04:37 Pulse Ox 100 03/29/25 15:00 O2 Del Method Room Air 03/29/25 15:00 03/29/25 03/29/25 03/30/25 14:59 22:59 06:59 Intake Total 1000 / 1000 Balance 1000 / 1000 Weight last 48 hrs Weight 248 lb Physical Exam Narrative: Weight 250 lbs; 5?9? BPs 149 / 84; 172 / 115; 149 / 88; 138 / 100; 127 / 85; 123 / 75 General comfortable, awake, alert HEENT no facial edema Lungs clear Cor: RRR Abd: soft, nontender Ext: no edema External monitor: heart tracing good variability, + accelerations Results Labs OB ([facility]): Obstetrics US 02/01/25 Blood Type A Positive 11/07/24 Antibody Screen Negative 11/07/24 Hct, (36-47) 31.6 % L 03/27/25 Hgb, (11.27-16.99) 10.30 g/dL L 03/27/25 Rho(D) Type Rh positive 11/07/24 Plt Count, (157-399) 189 10^3/cmm 03/27/25 Hep Bs Antigen, (Nonreactive) Non-reactive 11/07/24 Hepatitis C Antibody, (Nonreactive) Non-reactive 11/07/24 Rubella IgG Antibody, (0.0-10.0) 23.6 IU/mL H 11/07/24 RPR, (Nonreactive) Nonreactive 11/07/24 HIV 1&2 Ab & HIV 1 Ag, (Non-Reactiv) Non-reactive 11/07/24 TSH, (0.27-4.20) 0.88 uIU/mL 11/07/24 Glucose 1 Hr 50 gm, (85-140) 139 mg/dL 02/27/25 Uric Acid, (2.4-5.7) 5.3 mg/dL 03/27/25 Progesterone 28.68 ng/mL 10/12/24 Ser , Semi-Qnt 62964.00 mIU/mL 09/26/24 HCG, Qual, (Negative) Positive H 09/28/24 Urine Opiates Screen, (Negative) Negative ng/mL 11/07/24 Ur Barbiturates Screen, (Negative) Negative ng/mL 11/07/24 Ur Phencyclidine Scrn, (Negative) Negative ng/mL 11/07/24 Ur Amphetamines Screen, (Negative) Negative ng/mL 11/07/24 U Benzodiazepines Scrn, (Negative) Negative ng/mL 11/07/24 Urine Cocaine Screen, (Negative) Negative ng/mL 11/07/24 U Marijuana (THC) Screen, (Negative) Negative ng/mL 11/07/24 Micro Urine Specimen 03/27/25 Pap Smear Interpret See note 11/18/24 A&P Assessment and plan 1. : 32 w 3 d Fetus reassuring 2. Headache: Headache, severe Accompanied by vomiting After initially having elevated BPs, patient?s BPs were all normal Doubt pre-eclampsia Patient?s headache did not respond to Percocet, states headache still about 8 / [address] of head for severe, persistent headache with vomiting Plan admit for 23-h observation Start 24-h urine collection for protein 3. Chronic hypertension: on metoprolol 50 mg daily BPs normal so far Cel[place] 12 mg IM x 2 given previously 4. H/O pre-eclampsia: PDMP PDMP Reviewed: Not Reviewed Attestations Medical Necessity Statement*: patient at 32 w 3 d, with severe headache Coding Level of Care Code Acute Code for Chg Fwd Diagnoses Z34.90 Headache R51.9 Chronic hypertension I10 H/O pre-eclampsia Z86.79; Z87.59
--- NOTE | 2025-03-29 18:20 | PM.OBGYPN ---
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 Subjective: Interval history: Still has headache, although has not vomited since admission BPs normal: 115 / 73; 111 / [address] scan of head + pansinusitis Otherwise normal Labor: Amniotic Membrane Status: Intact Monitor Mode: Palpation Contraction Pattern: Absent Vitals/I&O/Wt Last Vital Signs Temp 97.2 F L 03/29/25 15:00 Pulse 67 03/30/25 04:52 Resp 18 03/29/25 22:46 BP 115/73 03/30/25 04:52 Pulse Ox 100 03/29/25 15:00 O2 Del Method Room Air 03/29/25 15:00 03/29/25 03/29/25 03/30/25 14:59 22:59 06:59 Intake Total 1000 / 1000 Balance 1000 / 1000 Weight last 48 hrs Weight 248 lb A&P Assessment and plan 1. : 32 w 3 d Fetus reassuring 2. Headache: Headache, severe Accompanied by vomiting After initially having elevated BPs, patient?s BPs have been all normal Doubt pre-eclampsia Patient?s headache did not respond to Percocet, states headache still about 8 / 10 CT scan of head shows pansinusitis Rx Augmentin 875 mg po bid and Mucinex-D Rx fioricet Plan admit for 23-h observation continue 24-h urine collection for protein PDMP PDMP Reviewed: Not Reviewed Attestations Medical Necessity Statement*: patient at 32 w 3 d, with severe headache Coding Level of Care Code Acute Code for Chg Fwd Diagnoses Z34.90 Headache R51.9
[2025-03-29] MEDS: oxyCODONE-APAP 5-325 mg Tablet 1 TAB PO (22:46)
[2025-03-30 04:37] VITALS: BP 111/64; PULSE 68
[2025-03-30 04:52] VITALS: BP 115/73; PULSE 67
[2025-03-30 09:44] VITALS: BP 114/65; PULSE 75
[2025-03-30 11:06] VITALS: BP 119/74; PULSE 76
[2025-03-30 11:38] LABS: Total Volume, Urine 1850 mL
== END 2025-03-30 13:40 | disposition home or self-care (01) ==
LOC: OPOB 10:50 → OBGYN 10:51
PROVIDERS: PCP Nurse Practitioner Family; Visit Provider Obstetrics & Gynecology
DX: O13.9 Gestational [pregnancy-induced] hypertension without significant proteinuria, unspecified trimester (principal); Z3A.00 Weeks of gestation of pregnancy not specified
CPT/HCPCS: 59025; 70450; 84156; 99211; J1171; J2405; J7120; J9999

== ENCOUNTER 2025-04-03 09:50 | Outpatient (CLI) | payer BC, MEDICAID, SELFPAY ==
[2025-04-03 09:50] VITALS: BMI 36.3
[2025-04-03 10:03] VITALS: BP 105/68; PULSE 80
[2025-04-03 10:23] VITALS: BP 109/63; PULSE 88
[2025-04-03 10:30] VITALS: BP 109/63; PULSE 88; RESP 17
== END 2025-04-03 10:30 | disposition home or self-care (01) ==
LOC: OPOB 09:56 → OBGYN 09:58
PROVIDERS: PCP Nurse Practitioner Family; Visit Provider Obstetrics & Gynecology
DX: O13.9 Gestational [pregnancy-induced] hypertension without significant proteinuria, unspecified trimester (principal); Z3A.00 Weeks of gestation of pregnancy not specified
CPT/HCPCS: 59025; 84315; 99211

== ENCOUNTER 2025-04-06 11:15 | Outpatient (CLI) | payer BC, MEDICAID, SELFPAY ==
[2025-04-06 11:25] VITALS: BP 124/78; PULSE 96
[2025-04-06 11:45] VITALS: BP 115/59; PULSE 96
[2025-04-06 12:05] VITALS: BP 141/80; PULSE 94
[2025-04-06 12:25] VITALS: BP 132/79; PULSE 86
== END 2025-04-06 12:45 | disposition home or self-care (01) ==
LOC: OPOB 11:18 → OBGYN 11:19
PROVIDERS: Absent Provider Obstetrics & Gynecology; PCP Nurse Practitioner Family; Visit Provider Obstetrics & Gynecology
DX: O13.9 Gestational [pregnancy-induced] hypertension without significant proteinuria, unspecified trimester (principal); Z3A.00 Weeks of gestation of pregnancy not specified
CPT/HCPCS: 59025; 99211

== ENCOUNTER 2025-04-10 12:59 | Outpatient (CLI) | payer BC, MEDICAID, SELFPAY ==
[2025-04-10 13:02] VITALS: BP 131/74; PULSE 69
[2025-04-10 13:05] VITALS: RESP 18; TEMP 36; BMI 36.5
[2025-04-10 13:17] VITALS: BP 119/66; PULSE 76
[2025-04-10 13:32] VITALS: BP 119/66; PULSE 80
== END 2025-04-10 13:50 | disposition home or self-care (01) ==
LOC: OPOB 12:59 → OBGYN 13:00
PROVIDERS: PCP Nurse Practitioner Family; Visit Provider Family Medicine
DX: O13.9 Gestational [pregnancy-induced] hypertension without significant proteinuria, unspecified trimester (principal); Z3A.00 Weeks of gestation of pregnancy not specified
CPT/HCPCS: 59025

== ENCOUNTER 2025-04-11 13:20 | Outpatient (CLI) | payer BC, MEDICAID, SELFPAY ==
[2025-04-11 13:20] VITALS: BMI 36.3
[2025-04-11 13:33] VITALS: BP 120/77; PULSE 101; RESP 17; TEMP 36.1
[2025-04-11 13:53] VITALS: BP 115/73; PULSE 110
== END 2025-04-11 13:55 | disposition home or self-care (01) ==
LOC: OPOB 13:24 → OBGYN 13:24
PROVIDERS: PCP Nurse Practitioner Family; Visit Provider Family Medicine
DX: O13.9 Gestational [pregnancy-induced] hypertension without significant proteinuria, unspecified trimester (principal); Z3A.00 Weeks of gestation of pregnancy not specified
CPT/HCPCS: 59025; 99211

== ENCOUNTER 2025-04-14 12:05 | Outpatient (CLI) | payer BC, MEDICAID, SELFPAY ==
[2025-04-14 12:15] VITALS: BP 117/76; PULSE 93
[2025-04-14 12:28] VITALS: BMI 36.0
[2025-04-14 12:35] VITALS: BP 123/65; PULSE 100
[2025-04-14 12:55] VITALS: BP 105/62; PULSE 85
[2025-04-14 13:13] VITALS: BP 123/65; PULSE 100; RESP 16; O2SAT 98
== END 2025-04-14 12:58 | disposition home or self-care (01) ==
LOC: OPOB 12:05 → OBGYN 12:06
PROVIDERS: PCP Nurse Practitioner Family; Visit Provider Family Medicine
DX: O13.9 Gestational [pregnancy-induced] hypertension without significant proteinuria, unspecified trimester (principal); Z3A.00 Weeks of gestation of pregnancy not specified
CPT/HCPCS: 59025

== ENCOUNTER 2025-04-18 13:00 | Outpatient (CLI) | payer BC, MEDICAID, SELFPAY ==
[2025-04-18 13:08] VITALS: BP 132/81; PULSE 69
[2025-04-18 13:28] VITALS: BP 127/80; PULSE 99
== END 2025-04-18 13:32 | disposition home or self-care (01) ==
LOC: OPOB 13:03 → OBGYN 13:04
PROVIDERS: PCP Nurse Practitioner Family; Visit Provider Family Medicine
DX: O13.9 Gestational [pregnancy-induced] hypertension without significant proteinuria, unspecified trimester (principal); Z3A.00 Weeks of gestation of pregnancy not specified
CPT/HCPCS: 59025

== ENCOUNTER 2025-04-20 13:13 | Outpatient (CLI) | payer BC, MEDICAID, SELFPAY ==
[2025-04-20 13:15] VITALS: BMI 35.6
[2025-04-20 13:20] VITALS: BP 155/75; PULSE 71
[2025-04-20 13:35] VITALS: BP 133/79; PULSE 93
[2025-04-20 13:50] VITALS: BP 143/87; PULSE 80
[2025-04-20 13:53] VITALS: BP 143/87; PULSE 80; RESP 17
== END 2025-04-20 13:55 | disposition home or self-care (01) ==
LOC: OPOB 13:15 → OBGYN 13:15
PROVIDERS: PCP Nurse Practitioner Family; Visit Provider Family Medicine
DX: O13.9 Gestational [pregnancy-induced] hypertension without significant proteinuria, unspecified trimester (principal); Z3A.00 Weeks of gestation of pregnancy not specified
CPT/HCPCS: 59025; 99211

== ENCOUNTER 2025-04-23 14:32 | Outpatient (CLI) | payer BC, MEDICAID, SELFPAY ==
[2025-04-23 14:30] VITALS: BMI 34.5
[2025-04-23 14:44] VITALS: BP 125/85; PULSE 88
[2025-04-23 15:00] VITALS: BP 110/64; PULSE 80
[2025-04-23 15:13] VITALS: BP 114/66; PULSE 70
[2025-04-23 15:33] VITALS: BP 114/66; PULSE 70; RESP 16; O2SAT 98
== END 2025-04-23 15:17 | disposition home or self-care (01) ==
LOC: OPOB 14:32 → OBGYN 14:33
PROVIDERS: PCP Nurse Practitioner Family; Visit Provider Family Medicine
DX: O13.9 Gestational [pregnancy-induced] hypertension without significant proteinuria, unspecified trimester (principal); Z3A.00 Weeks of gestation of pregnancy not specified
CPT/HCPCS: 59025; 99211

== ENCOUNTER 2025-04-28 09:03 | Outpatient (CLI) | payer BC, MEDICAID, SELFPAY ==
[2025-04-28 09:15] VITALS: BP 132/86; PULSE 83
[2025-04-28 09:35] VITALS: BP 129/77; PULSE 100
== END 2025-04-28 09:52 | disposition home or self-care (01) ==
LOC: OPOB 09:04 → OBGYN 09:05
PROVIDERS: PCP Nurse Practitioner Family; Visit Provider Family Medicine
DX: O13.9 Gestational [pregnancy-induced] hypertension without significant proteinuria, unspecified trimester (principal); Z3A.00 Weeks of gestation of pregnancy not specified
CPT/HCPCS: 59025

== ENCOUNTER 2025-05-04 13:23 | Outpatient (CLI) | payer BC, MEDICAID, SELFPAY ==
[2025-05-04 13:23] VITALS: BMI 36.3
[2025-05-04 13:36] VITALS: BP 111/69; PULSE 106
[2025-05-04 13:51] VITALS: BP 116/62; PULSE 125
== END 2025-05-04 13:58 | disposition home or self-care (01) ==
LOC: OPOB 13:28 → OBGYN 13:29
PROVIDERS: PCP Nurse Practitioner Family; Visit Provider Family Medicine
DX: O13.9 Gestational [pregnancy-induced] hypertension without significant proteinuria, unspecified trimester (principal); Z3A.00 Weeks of gestation of pregnancy not specified
CPT/HCPCS: 59025; 99211

== ENCOUNTER 2025-05-08 08:58 | Inpatient (IN) | payer BC, MEDICAID, SELFPAY ==
[2025-05-08] VITALS (41 sets, daily range): BP systolic 90–140; BP diastolic 48–86; PULSE 56–141; RESP 18; TEMP 36.7–36.8; O2SAT 90–100; BMI 36.4
[2025-05-08 10:22] LABS: Hematocrit 30.3 % (36-47); Hemoglobin 10.10 g/dL (11.27-16.99); Mean Corpuscular HGB Conc 33.3 g/dL (30-55); Mean Corpuscular Hemoglobin 29.6 pg (27-33); Mean Corpuscular Volume 88.9 fl (85-98); Nucleated Red Blood Cells % 0 %; Platelet Count 206 10^3/cmm (157-399); Red Blood Count 3.41 10^6/uL (3.85-5.65); White Blood Count 6.84 10^3/uL (3.29-11.43)
--- NOTE | 2025-05-08 17:24 | PM.OBGYHP ---
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 Patient has a history of chronic hypertension and has had a history of preeclampsia. Patient has had some difficulty with blood pressure control but is doing fairly well currently on metoprolol. NSTs and growth ultrasounds have been appropriate. Patient has had occasional contractions but nothing consistent. Present Details : 5 Para: 2 Date of Last Menstrual Period: 08/05/24 Calculated Date of Delivery: 05/12/25 Gestational Age Based on Last Menstrual Period: 39 Labs Rubella: Immune RPR: Negative GBS: Negative L&D/Induction Specific History Indication for induction OB: medical complication (Chronic hypertension) Review of Systems Const: Denies: fever(s), change in appetite or fatigue Eyes: Denies: change in vision, blurry vision, blind spots, floaters or seeing flashes Card: Denies: palpitations, irregular heart rhythm, edema, lightheadedness, syncope or pre-syncope Resp: Denies: dyspnea or pain on inspiration GI: Denies: abdominal pain, nausea, vomiting, heartburn or GI cramping : Reports: other (contractions); Denies: difficulty voiding, dysuria, genital pruritis, vaginal odor, vaginal bleeding or vaginal discharge Musc: Denies: back pain, limited range of motion or muscle cramps Skin/Breast: Denies: rash, pruritus, breast tenderness or nipple discharge Neuro: Denies: headache(s) or numbness in extremities Psych: Denies: anxiety, depression, mood swings or panic attacks Endo: Denies: polyuria, tired all the time or hot flashes Alfred/Lymph: Denies: easy bruising or petechiae Medications/Allergies Home Medications ?Medication ?Instructions ?Recorded ?Confirmed ?Last Taken ?Type famotidine 20 mg tablet (Pepcid) 20 mg PO DAILY PRN Heartburn 01/04/24 04/10/25 04/11/25 08:00 History metoclopramide HCl 5 mg tablet 5 mg PO DAILY #60 tabs 09/28/24 04/10/25 04/11/25 08:00 Rx (Reglan) sertraline 50 mg tablet (Zoloft) 50 mg PO DAILY #90 tabs 01/11/25 04/10/25 04/11/25 08:00 Rx metoprolol succinate 50 mg See Rx Instructions .Route 02/08/25 04/10/25 04/11/25 08:00 Rx tablet,extended release 24 hr .COMPLEX #30 tabs Allergies Allergy/AdvReac Type Severity Reaction Status Date / Time No Known Allergies Allergy Verified 04/03/25 09:14 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 This was managed by her primary care provider. She has not needed medication since 2017 until her in 2019 when she was restarted on metoprolol midway through the . 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 Hernandes, was told not get for 12 months post molar . This was not intentional. 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: father of baby negative carrier screening HX OF PRE-ECLAMPSIA IN PRIOR HX OF GROWTH RESTRICTION IN PRIOR HX OF LABOR Vitals/I&O/Wt Last Vital Signs Temp 98.0 F 05/08/25 16:27 Pulse 70 05/08/25 16:24 Resp 18 05/08/25 16:27 BP 122/68 05/08/25 16:24 O2 Del Method Room Air 05/08/25 16:27 Weight last 48 hrs Weight 112.037 kg Physical Exam Const: COMMON NORMALS: no acute distress and patient oriented x3 Resp: COMMON NORMALS: normal respiratory effort and No retractions Cardio: COMMON NORMALS: no JVD, regular rate and regular rhythm GI: OTHER: Gravid uterus : COMMON NORMALS: Yes no CVA tenderness and Yes normal external appearance Extremity: COMMON NORMALS: normal to inspection GENERAL: Yes edema Neuro: COMMON NORMALS: patient oriented x3, moves all extremities, no focal motor deficits and no sensory deficits noted Psych: COMMON NORMALS: mental status grossly normal and cooperative Data 05/08/25 09:20 Results Labs OB ([facility]): Obstetrics US 02/01/25 Blood Type A Positive Today Antibody Screen Negative Today Hct, (36-47) 30.3 % L Today Hgb, (11.27-16.99) 10.10 g/dL L Today Rho(D) Type Rh positive Today Plt Count, (157-399) 206 10^3/cmm Today Hep Bs Antigen, (Nonreactive) Non-reactive 11/07/24 Hepatitis C Antibody, (Nonreactive) Non-reactive 11/07/24 Rubella IgG Antibody, (0.0-10.0) 23.6 IU/mL H 11/07/24 RPR, (Nonreactive) Nonreactive 11/07/24 HIV 1&2 Ab & HIV 1 Ag, (Non-Reactiv) Non-reactive 11/07/24 TSH, (0.27-4.20) 0.88 uIU/mL 11/07/24 Glucose 1 Hr 50 gm, (85-140) 139 mg/dL 02/27/25 Uric Acid, (2.4-5.7) 5.3 mg/dL 03/27/25 Progesterone 28.68 ng/mL 10/12/24 Ser , Semi-Qnt 44476.00 mIU/mL 09/26/24 HCG, Qual, (Negative) Positive H 09/28/24 Urine Opiates Screen, (Negative) Negative ng/mL 11/07/24 Ur Barbiturates Screen, (Negative) Negative ng/mL 11/07/24 Ur Phencyclidine Scrn, (Negative) Negative ng/mL 11/07/24 Ur Amphetamines Screen, (Negative) Negative ng/mL 11/07/24 U Benzodiazepines Scrn, (Negative) Negative ng/mL 11/07/24 Urine Cocaine Screen, (Negative) Negative ng/mL 11/07/24 U Marijuana (THC) Screen, (Negative) Negative ng/mL 11/07/24 Micro Urine Specimen 03/27/25 Pap Smear Interpret See note 11/18/24 A&P Assessment and plan 1. Pre-existing hypertension affecting in third trimester: Continue current blood pressure management. Pressures have been controlled. 2. Term : The patient was started on Cytotec for induction of labor. The patient has made a small amount of progression. Patient desired rupture membranes and risk were discussed with the patient and she agreed to proceed. Artificial rupture membranes was performed with small amount of clear fluid noted. Will plan on transitioning to Pitocin after 4 hours has passed since last Cytotec dose. PDMP PDMP Reviewed: Not Reviewed Attestations Medical Necessity Statement*: Patient admitted for induction of labor due to chronic hypertension. Anticipate at least 1 midnight stay. Coding Level of Care Code Acute Code for Chg Fwd Diagnoses Pre-existing hypertension affecting in third trimester O10.913 Trimester: third trimester Term Z34.90
--- NOTE | 2025-05-08 19:47 | P.ANESASSM_ITS ---
Pre-Anesthetic Assessment Height/Weight: Height 1.75 m Weight 112.037 kg Temp Pulse Resp BP Pulse Ox O2 Del Method 98.0 F 67 18 135/65 100 Room Air 05/08/25 16:27 05/08/25 19:43 05/08/25 16:27 05/08/25 19:43 05/08/25 19:42 05/08/25 16:27 Preop Diagnosis: IUP Familial anesthetic complications: none Was Beta Ronnie taken within 24 hours: Yes Was Clonidine taken within 24 hours: N/A Social No alcohol and No tobacco Exam alert and oriented x 3 Airway Submandibular: within normal limits Cervical ROM: within normal limits Mallampati: Class II Dentition: full CV/HEM Hypertension Anesthetic Plan ASA status: 3 Anesthesia: Anesthesia Evaluation and Regional (specify below) Risk of > 500 ml blood loss (7ml/kg in children): Yes, adequate IV access and fluids planned Medications/Allergies Home Medications ?Medication ?Instructions ?Recorded ?Confirmed ?Last Taken ?Type famotidine 20 mg tablet (Pepcid) 20 mg PO DAILY PRN He artburn 01/04/24 04/10/25 04/11/25 08:00 History metoclopramide HCl 5 mg tablet 5 mg PO DAILY #60 tabs 09/28/24 04/10/25 04/11/25 08:00 Rx (Reglan) sertraline 50 mg tablet (Zoloft) 50 mg PO DAILY #90 ta bs 01/11/25 04/10/25 04/11/25 08:00 Rx metoprolol succinate 50 mg See Rx Instructions .Route 02/08/25 04/10/25 04/11/25 08:00 Rx tablet,extended release 24 hr .COMPLEX #30 tabs Allergies Allergy/AdvReac Type Severity Reaction Status Date / Time No Known Allergies Allergy Verified 04/03/25 09:14 Current Medications Generic Name Dose Route Start Last Admin Trade Name Freq PRN Reason Stop Dose Admin Dextrose/Lactated Ringer's 1,000 mls @ 125 mls/hr 05/08/25 10:00 05/08/25 17:24 Dextrose 5%-Lactated Ringers IV 125 mls/hr .Q8H JULIANNA Administration Lactated Ringer's 1,000 mls @ 999 mls/hr 05/08/25 18:23 05/08/25 18:30 Lactated Ringers IV 999 mls/hr .Q1H1M PRN Administration See label comments [facility] Anesthesia Medical History (Updated 05/08/25 @ 17:29 by Hernan Borjas MD) No pertinent past medical history Denies diabetes, asthma, seizures, DVT/PE PMD: None Hypertension Diagnosed at the age of 18 and she was taking metoprolol 50 mg once a day. This was managed by her primary care provider. She has not needed medication since 2017 until her in 2019 when she was restarted on metoprolol midway through the . Surgical History History of cholecystectomy (~2022) History of tonsillectomy (~2006) Family History Mother Hypertension Father Hypertension Family/Other Uterine cancer Maternal Great Grandmother--dx age 65 Denies family history of Colon cancer Ovarian cancer Diabetes Heart disease Hypercholesteremia Breast cancer Thyroid disease Stroke Social History Smoking and tobacco/nicotine status: never used tobacco/nicotine Female Reproductive History Date of last menstrual period: 08/05/24 : 5 Data Anesthesia 05/08/25 09:20 Short CBC 05/08/25 Range/Units 09:20 WBC 6.84 (3.29-11.43) 10^3/uL Hgb 10.10 L (11.27-16.99) g/dL Hct 30.3 L (36-47) % MCV 88.9 (85-98) fl Plt Count 206 (157-399) 10^3/cmm Neut % (Auto) 75.5 % Neut # (Auto) 5.16 (1.8-7.7) 10^3/uL Blood Bank 05/08/25 09:20 Blood Type A Positive Rho(D) Type Rh positive Antibody Screen Negative Cardiac Studies: 2 Echocardiogram Ultrasound 02/08/21 Anesthesia Procedures Epidural Time Out Performed: Yes Consents Signed: Procedure Consent Consent: from patient, risks and benefits reviewed and patient agrees to proceed Lumbar Level: L3-L4 Epidural position: sitting Epidural procedure: sterile prep of area, 1% lidocaine to numb the area, 18 g needle, negative for paresthesia passed, test dose given, 1.5% xylocaine 1:200k epi, placed PCEA, no systemic response, sterile dressing applied, L.U.D. no apparent complications and 0.2% Ropiavacaine @ mls/hr (13) Additional Comments: EMILY at 7.5, negative heme/CSF with aspiration. taped at 13 at skin. tolerated well. upon lying back pt. was complete, bolus with PRODUCT MARKETING COORDINATOR given.
[2025-05-08] MEDS: ROPivacaine syringe 100 MG/50 ML SYRINGE 10 MG EPIDURAL (19:48)
[2025-05-08] MEDS: oxytocin 30 UNIT/500 ML BAG 600 UNIT IV (20:08)
--- NOTE | 2025-05-08 20:17 | PM.DELIVERY ---
Delivery Note: Date of delivery: May 08, 2025 Pre-delivery diagnoses: Term intrauterine , chronic hypertension Post-delivery diagnoses: Same, viable female Procedure: Spontaneous vaginal delivery Op report anesthesia: Epidural Delivering Physician: José Miguel Borjas MD Estimated blood loss (mL): 100 Pre-Delivery Course: This is a 34-year-old G5, P3 that presented at 38 weeks for induction of labor due to chronic hypertension. Patient was started on Cytotec and had artificial rupture membranes to induce her labor. Delivery: Once patient was completely dilated patient was placed into the normal lithotomy position. The patient started pushing with contractions and delivered a viable female without difficulty. Nuchal cord x 1. was then placed on mother's abdomen. After delay the cord was clamped and cut. Placenta was then delivered soon after. Review of the perineum showed 1 small first-degree perineal tear that was actively bleeding. This was repaired with 2-0 Vicryl. Patient had small right labial tear that was not actively bleeding so no repair was performed. Uterus was firm and bleeding was controlled. Post-Delivery Status: Stable History History History 5 Term 1 1 Miscarriages/Ectopic 2 Living Children 2 A&P Assessment and plan 1. Pre-existing hypertension affecting in third trimester: Will transition back to her prepregnancy dose of metoprolol. Will give half a tab this evening and start her on a whole tab in the a.m. and monitor her pressures while admitted. 2. Spontaneous vaginal delivery: Proceed with routine care. PDMP PDMP Reviewed: Not Reviewed Coding Level of Care Code Acute Code for Chg Fwd Diagnoses Pre-existing hypertension affecting in third trimester O10.913 Trimester: third trimester Pre-existing hypertension affecting in third trimester O10.913 Trimester: third trimester Spontaneous vaginal delivery O80
--- NOTE | 2025-05-08 22:08 | PC.NURSE ---
Received orders at the bedside for patient to have half a blood pressure pill tonight, a whole pill in the morning and then ordered as normal. When discussing with patient how she has been taking her blood pressure medication at home. Patient states that she has baeen taking half a 50mg extended release metoprolol tablet every 8 hours. Patient states she took her half a blood pressure pill from home already tonight. Advised patient that we could give her the metoprolol in the morning and she did not need to take her own from home. Patient verbalized understanding.
[2025-05-08] MEDS: benzocaine-menthol 78 gm Canister 1 SPRAY TOPICAL (23:28)
[2025-05-09] VITALS: BP 115/80; PULSE 72
[2025-05-09 01:00] VITALS: BP 110/79; PULSE 80
[2025-05-09 02:00] VITALS: BP 109/75; PULSE 81
[2025-05-09 06:00] VITALS: BP 109/74; PULSE 75
--- NOTE | 2025-05-09 07:44 | PM.OBGYPN ---
AERIAL GUNNER Subjective Subjective: Interval history: This is a 34-year-old G5, P3 that is status post vaginal delivery x 1 day. Patient has not had any significant complications since delivery. Vital signs have been stable. Blood pressure has been well-controlled. Labor: Station: +3 Amniotic Membrane Status: Ruptured Monitor Mode: External Contraction Pattern: Regular Post /CS: Patient comments OB post-: no complaints, pain well controlled and tolerating diet [place] baby status: nursing well and bottle feeding well [place] feeding status: breast and bottle feeding Vitals/I&O/Wt Last Vital Signs Temp 98.0 F 05/08/25 16:27 Pulse 75 05/09/25 06:00 Resp 18 05/08/25 16:27 BP 109/74 05/09/25 06:00 Pulse Ox 97 05/08/25 19:58 O2 Del Method Room Air 05/08/25 16:27 05/08/25 05/09/25 05/09/25 22:59 06:59 14:59 Intake Total 1566.5 / 1566.5 Balance 1566.5 / 1566.5 Weight last 48 hrs Weight 112.037 kg Physical Exam Const: COMMON NORMALS: no acute distress and patient oriented x3 Neck/C-Spine: COMMON NORMALS: no JVD Resp: COMMON NORMALS: normal respiratory effort and No retractions Cardio: COMMON NORMALS: no JVD, regular rate and regular rhythm RATE: regular rate RHYTHM: regular rhythm GI: OTHER: Uterus firm and below umbilicus Extremity: COMMON NORMALS: normal to inspection GENERAL: Yes edema Neuro: COMMON NORMALS: patient oriented x3, moves all extremities, no focal motor deficits and no sensory deficits noted Psych: COMMON NORMALS: mental status grossly normal and cooperative Data 05/08/25 09:20 A&P Assessment and plan 1. Chronic hypertension: We will restart her metoprolol at 50 mg daily and monitor her blood pressure. 2. Spontaneous vaginal delivery: No concerns. Continue with care PDMP PDMP Reviewed: Not Reviewed Attestations Medical Necessity Statement*: Patient admitted for induction of labor. Will discharge tomorrow. Coding Level of Care Code Acute Code for Chg Fwd Diagnoses Chronic hypertension I10 Spontaneous vaginal delivery O80
--- NOTE | 2025-05-09 08:00 | ANE.PACU2 ---
Inpatient post-anesthesia follow up: Airway intact: Yes Vital signs: Temperature 98.2 F Pulse Rate 68 Respiratory Rate 18 Blood Pressure 130/88 Pulse Oximetry 98 Oxygen Delivery Me thod Room Air Oxygen Flow Rate Fraction of Inspir ed Oxygen Hydration adequate: Yes Nausea and vomiting: No Pain level: 1 Mental status: Baseline Epidural Start/End: Epidural Start Date: 05/08/25 Epidural Start Time: 19:28 Epidural End Date: 05/08/25 Epidural End Time: 21:15
[2025-05-09] MEDS: PRENATAL VIT NO.130/IRON/FOLIC 1 EACH TABLET PO (08:40)
[2025-05-09] MEDS: metoprolol succinate ER (24 HR) 50 mg Tablet PO (08:41)
[2025-05-09 08:49] LABS: Hematocrit 27.9 % (36-47); Hemoglobin 9.30 g/dL (11.27-16.99); Mean Corpuscular HGB Conc 33.3 g/dL (30-55); Mean Corpuscular Hemoglobin 29.9 pg (27-33); Mean Corpuscular Volume 89.7 fl (85-98); Platelet Count 195 10^3/cmm (157-399); Red Blood Count 3.11 10^6/uL (3.85-5.65); White Blood Count 8.38 10^3/uL (3.29-11.43)
[2025-05-09 10:30] VITALS: BP 108/76; PULSE 69; TEMP 36.7
[2025-05-09 20:41] VITALS: BP 120/76; PULSE 78; RESP 16; TEMP 36.6; O2SAT 98
[2025-05-10 04:17] VITALS: BP 117/73; PULSE 60; RESP 16; TEMP 36.6; TEMP 36.7; O2SAT 98
--- NOTE | 2025-05-10 10:39 | PM.OBGYDC ---
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 Chronic hypertension: 2. Spontaneous vaginal delivery: Reason for Visit Reason for Visit: INDUCTION Hospital Course Hospital Course This is a 34-year-old that presented for induction of labor. The patient was started with her induction with Cytotec. The patient received 2 doses of Cytotec before having artificial rupture membranes. Patient started progressing fairly quickly after her rupture of membranes until completion. The patient then delivered a viable female vaginally without significant complications. Patient's care was unremarkable. Information Peripartum Data: Infant Delivery Method: Vaginal Laceration description: Perineal - 1st Degree complications: none Physical Exam Const: COMMON NORMALS: no acute distress and patient oriented x3 Neck/C-Spine: COMMON NORMALS: no JVD Resp: COMMON NORMALS: normal respiratory effort and No retractions Cardio: COMMON NORMALS: no JVD, regular rate and regular rhythm RATE: regular rate RHYTHM: regular rhythm GI: OTHER: Uterus firm and below umbilicus Extremity: COMMON NORMALS: normal to inspection GENERAL: Yes edema Neuro: COMMON NORMALS: patient oriented x3, moves all extremities, no focal motor deficits and no sensory deficits noted Psych: COMMON NORMALS: mental status grossly normal and cooperative History History History 5 Term 1 1 Miscarriages/Ectopic 2 Living Children 2 Discharge Data Studies Completed and Pending Laboratory Results WBC 8.38 10^3/uL (3.29-11.43) 05/09/25 08:19 RBC 3.11 10^6/uL (3.85-5.65) L 05/09/25 08:19 Hgb 9.30 g/dL (11.27-16.99) L 05/09/25 08:19 Hct 27.9 % (36-47) L 05/09/25 08:19 MCV 89.7 fl (85-98) 05/09/25 08:19 MCH 29.9 pg (27-33) 05/09/25 08:19 MCHC 33.3 g/dL (30-55) 05/09/25 08:19 RDW 14.9 % (12.1-15.1) 05/09/25 08:19 Plt Count 195 10^3/cmm (157-399) 05/09/25 08:19 MPV 10.8 fL (7.4-10.4) H 05/09/25 08:19 Neut % (Auto) 75.5 % 05/08/25 09:20 Lymph % (Auto) 18.7 % 05/08/25 09:20 Clare % (Auto) 4.4 % 05/08/25 09:20 Eos % (Auto) 0.7 % 05/08/25 09:20 Baso % (Auto) 0.4 % 05/08/25 09:20 Neut # (Auto) 5.16 10^3/uL (1.8-7.7) 05/08/25 09:20 Lymph # (Auto) 1.3 10^3/uL (0.8-4.8) 05/08/25 09:20 Clare # (Auto) 0.3 10^3/uL (0.2-0.9) 05/08/25 09:20 Eos # (Auto) 0.1 10^3/uL (0.0-0.8) 05/08/25 09:20 Baso # (Auto) 0.0 10^3/uL (0.0-0.1) 05/08/25 09:20 Nucleated RBC % (auto) 0 % 05/08/25 09:20 Nucleated RBCs # 0.0 /100WBC 05/08/25 09:20 Blood Type A Positive 05/08/25 09:20 Rho(D) Type Rh positive 05/08/25 09:20 Antibody Screen Negative 05/08/25 09:20 Vitals Last Vital Signs Temp 98.0 F 05/10/25 04:17 Pulse 60 05/10/25 04:17 Resp 16 05/10/25 04:17 BP 117/73 05/10/25 04:17 Pulse Ox 98 05/10/25 04:17 O2 Del Method Room Air 05/10/25 04:17 Results Labs OB ([facility]): Obstetrics US 02/01/25 Blood Type A Positive 05/08/25 Antibody Screen Negative 05/08/25 Hct, (36-47) 27.9 % L 05/09/25 Hgb, (11.27-16.99) 9.30 g/dL L 05/09/25 Rho(D) Type Rh positive 05/08/25 Plt Count, (157-399) 195 10^3/cmm 05/09/25 Hep Bs Antigen, (Nonreactive) Non-reactive 11/07/24 Hepatitis C Antibody, (Nonreactive) Non-reactive 11/07/24 Rubella IgG Antibody, (0.0-10.0) 23.6 IU/mL H 11/07/24 RPR, (Nonreactive) Nonreactive 11/07/24 HIV 1&2 Ab & HIV 1 Ag, (Non-Reactiv) Non-reactive 11/07/24 TSH, (0.27-4.20) 0.88 uIU/mL 11/07/24 Glucose 1 Hr 50 gm, (85-140) 139 mg/dL 02/27/25 Uric Acid, (2.4-5.7) 5.3 mg/dL 03/27/25 Progesterone 28.68 ng/mL 10/12/24 Ser , Semi-Qnt 82594.00 mIU/mL 09/26/24 HCG, Qual, (Negative) Positive H 09/28/24 Urine Opiates Screen, (Negative) Negative ng/mL 11/07/24 Ur Barbiturates Screen, (Negative) Negative ng/mL 11/07/24 Ur Phencyclidine Scrn, (Negative) Negative ng/mL 11/07/24 Ur Amphetamines Screen, (Negative) Negative ng/mL 11/07/24 U Benzodiazepines Scrn, (Negative) Negative ng/mL 11/07/24 Urine Cocaine Screen, (Negative) Negative ng/mL 11/07/24 U Marijuana (THC) Screen, (Negative) Negative ng/mL 11/07/24 Micro Urine Specimen 03/27/25 Pap Smear Interpret See note 11/18/24 Discharge Plan Discharge Patient Disposition: Home Condition: Stable Prescriptions: Continued famotidine [Pepcid] 20 mg tablet 20 mg PO DAILY PRN (Reason: Heartburn) sertraline [Zoloft] 50 mg tablet 50 mg PO DAILY Qty: 90 1RF metoclopramide HCl [Reglan] 5 mg tablet 5 mg PO DAILY Qty: 60 1RF Rx Instructions: take one tab daily metoprolol succinate 50 mg tablet extended release 24 hr See Rx Instructions .ROUTE .COMPLEX Qty: 30 4RF Dose Instruction: TAKE 1 TABLET BY MOUTH DAILY Rx Instructions: TAKE 1 TABLET BY MOUTH DAILY Discharge Order = DC NOW: Discharge Order (Routine); Ordered 05/10/25 Ordered By: Hernan Borjas Referrals: Hernan Borjas MD [Physician, Family Practice] - 06/22/25 11:00 am Discharge Diet: Usual diet Discharge Activity: Limit activity as instructed Patient Instructions: Depression (DC), Opioid Safety (DC), Preeclampsia and Eclampsia After Delivery (GEN), Hemorrhage (DC), OB Discharge Report, OB Food/Drug Interaction Guide, OB Care at Home, Opioid Safety, OB Vaginal Deliveries, Patient Portal & [place] Instructions, Abnormal Bleeding Discharge 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
[2025-05-10 11:15] VITALS: BP 130/88; PULSE 68; RESP 17; RESP 18; TEMP 36.8; O2SAT 98
== END 2025-05-10 11:20 | disposition home or self-care (01) | DRG 807 ==
LOC: OBGYN 08:59
PROVIDERS: Admitting Provider Family Medicine; PCP Nurse Practitioner Family; Visit Provider Family Medicine
DX: O10.02 Pre-existing essential hypertension complicating childbirth (principal); Z37.0 Single live birth; O70.0 First degree perineal laceration during delivery; O69.81X0 Labor and delivery complicated by cord around neck, without compression, not applicable or unspecified; Z3A.38 38 weeks gestation of pregnancy
CPT/HCPCS: 36415; 59025; 59409; 85025; 85027; 86850; 86900; J2590; J2795; J7120; J7121; J9999